=== PATIENT | female | born 1945 | race Caucasian/White ===

== ENCOUNTER → 2017-11-20 | Outpatient (CLI) | payer OTHER | LOC: FIMAGING 12:37 | PROVIDERS: ATTEND Internal Medicine | DX: R06.09 Other forms of dyspnea (principal); R09.89 Other specified symptoms and signs involving the circulatory and respiratory systems; R91.8 Other nonspecific abnormal finding of lung field ==

== ENCOUNTER → 2017-11-22 | Outpatient (CLI) | payer OTHER ==
[~2017-11-22] MED LIST: IOPAMIDOL (ISOVUE-300) 100 ML BTL ONE
== END ==
LOC: FIMAGING 09:21
PROVIDERS: ATTEND Internal Medicine
DX: R06.09 Other forms of dyspnea (principal); R91.8 Other nonspecific abnormal finding of lung field; Z85.3 Personal history of malignant neoplasm of breast
CPT/HCPCS: 71260; Q9967

== ENCOUNTER → 2017-11-24 | Outpatient (CLI) | payer OTHER | LOC: FIMAGING 07:14 | PROVIDERS: ATTEND Internal Medicine | DX: R16.0 Hepatomegaly, not elsewhere classified (principal); K80.20 Calculus of gallbladder without cholecystitis without obstruction ==

== ENCOUNTER → 2017-12-21 | Outpatient (CLI) | payer OTHER ==
[~2017-12-21] MED LIST changes: +GADOBUTROL 10 ML VIAL IVP ONE; -IOPAMIDOL (ISOVUE-300) 100 ML BTL ONE
== END ==
LOC: FIMAGING 15:20
PROVIDERS: ATTEND Internal Medicine Hematology & Oncology
DX: C79.31 Secondary malignant neoplasm of brain (principal); C78.01 Secondary malignant neoplasm of right lung; Z85.3 Personal history of malignant neoplasm of breast
CPT/HCPCS: 70553; A9585

== ENCOUNTER 2017-12-26 06:23 | Day surgery (SDC) | payer OTHER ==
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
--- NOTE | 2017-12-26 05:35 | PDHPUP ---
History & Physical Update H&P update statement: This history and physical update is based on an assessment of the patient which was completed after admission or registration (within 24 hours), but prior to the surgery/procedure. H&P update: H&P reviewed & patient examined, no change in patient's condition since H&P completed
[2017-12-26] MEDS ORDERED: ceFAZolin 2 GM/DEXTROSE 100 ML IV ONE (06:35)
[2017-12-26] MEDS ORDERED: LR 1,000 ML IV ONE (06:36)
[2017-12-26] MEDS ORDERED: LIDOCAINE 1% 2 ML INJ ID PRN (06:36)
[2017-12-26] MEDS ORDERED: BUPIVACAINE 0.5% 30 ML SDV ONE (07:17)
[2017-12-26] MEDS ORDERED: fentaNYL 100 MCG/2 ML INJ ONE (07:39)
[2017-12-26] MEDS ORDERED: PROPOFOL/EMULSION 500 MG/50 ML BOTTLE IV ONE (07:39)
[2017-12-26] MEDS ORDERED: RANITIDINE 50 MG/2 ML VIAL ONE (07:41)
[2017-12-26] MEDS ORDERED: LIDOCAINE 2% 100 MG/5 ML SYR ONE (07:42)
[2017-12-26] MEDS ORDERED: METOCLOPRAMIDE 10 MG/2 ML VIAL ONE (07:42)
--- NOTE | 2017-12-26 07:43 | PDANEPAE ---
ANE Past Medical History - Cardiovascular History Hx Hypertension: No Hx Arrhythmias: No Hx Chest Pain: No Hx Coronary Artery / Peripheral Vascular Disease: No Hx CHF / Valvular Disease: No Hx Palpitations: No Cardiovascular History Comment: slight thickening of RCA - Pulmonary History Hx COPD: No Hx Asthma/Reactive Airway Disease: No Hx Recent Upper Respiratory Infection: No Hx Oxygen in Use at Home: No Hx Sleep Apnea: Yes Sleep Apnea Screening Result - Last Documented: Positive Pulmonary History Comment: lung cancer - Neurologic History Hx Cerebrovascular Accident: No Hx Seizures: No Hx Dementia: No - Endocrine History Hx Diabetes: No Endocrine History Comment: pre-diabetes - Renal History Hx Renal Disorders: No - Liver History Hx Hepatic Disorders: No - Neurological & Psychiatric Hx Hx Neurological and Psychiatric Disorders: No - Cancer History Hx Cancer: Yes Cancer History Comment: Breast CA, lung cancer, liver cancer, metatastic adenocarcinoma unknown source - Congenital Disorder History Hx Congenital Disorders: No - GI History Hx Gastrointestinal Disorders: No - Other Health History Other Health History: Chronic inflammatory disease - Chronic Pain History Chronic Pain: No - Surgical History Prior Surgeries: B/L Mastectomy-2009. B/L Knee replacement-2009. B/L reconstructive breast surgery-2009. 2007-R rotator cuff surgery/2012-R L rotator cuff surgery. [id number]. Right leg compound fracture surgery-1965. left leg surgery-1994 ANE Review of Systems Review of Systems: - Exercise capacity METS (RN): 3 METS ANE Patient History - Allergies Allergies/Adverse Reactions: clarithromycin [From Biaxin] Allergy (Severe, Verified 11/30/17 15:50) THROAT CLOSURE/HIVES MOLD Allergy (Severe, Uncoded 04/28/09 11:48) Anaphylaxis - Home Medications Home Medications: Ascorbic Acid [Vitamin C] 500 mg PO 08/12/09 [Last Taken 11/30/17] CO Q-10 PO DAILY 08/12/09 [Last Taken 11/30/17] Cholecalciferol Vit D3 [Vitamin D] 500 units PO DAILY 08/12/09 [Last Taken 11/30] Estradiol TD PRN 08/12/09 [Last Taken 11/30/17] Synthroid 50 mcg PO DAILY 08/12/09 [Last Taken 12/01/17 0400] TESTOSTERONE CYPIONATE 2.5 mg PRN PRN 08/12/09 [Last Taken 11/26/17] metFORMIN HCL [Glucophage 500 mg (*)] 500 mg PO DAILY 08/12/09 [Last Taken 11/30] Calcium 500 mg PO DAILY 11/30/17 [Last Taken 11/30/17] Dhea 25 mg PO DAILY 11/30/17 [Last Taken 11/30/17] Fish Oil 1000 mg (*) 2 - 3 tab PO DAILY 11/30/17 [Last Taken 11/30/17] Garlic 600 mg PO DAILY 11/30/17 [Last Taken 11/30/17] Glutaraldehyde 5 mg PO DAILY 11/30/17 [Last Taken 11/30/17] Pregnenolone 30 mg PO 11/30/17 [Last Taken 11/30/17] Vitamin E 400 mg PO DAILY 11/30/17 [Last Taken 11/30/17] - NPO status NPO Since - Liquids (Date): 12/25/17 NPO Since - Liquids (Time): 23:00 NPO Since - Solids (Date): 12/25/17 NPO Since - Solids (Time): 19:00 - Smoking Hx Smoking Status: Never smoked - Family Anes Hx Family Hx Anesthesia Complications: None ANE Labs/Vital Signs - Vital Signs Blood Pressure: 122/72 Heart Rate: 85 Respiratory Rate: 18 O2 Sat (%): 96 Height: 170.18 cm Weight: 58.06 kg ANE Physical Exam - Airway Neck exam: decreased ROM Mallampati Score: Class 2 Mouth exam: normal dental/mouth exam - Pulmonary Pulmonary: no respiratory distress - Cardiovascular Cardiovascular: regular rate and rhythym - ASA Status ASA Status: III ANE Anesthesia Plan Total IV Anesthesia: Yes
[2017-12-26] MEDS ORDERED: fentaNYL 100 MCG/2 ML INJ IVP PRN (08:00)
[2017-12-26] MEDS ORDERED: ALBUTEROL 3 ML DEYVIAL IH PRN (08:00)
[2017-12-26] MEDS ORDERED: ONDANSETRON 4 MG/2 ML VIAL IVP PRN (08:00)
[2017-12-26] MEDS ORDERED: NALOXONE HCL 0.4 MG/ML INJ IVP PRN (08:00)
[2017-12-26] MEDS ORDERED: PROPOFOL 200 MG/20 ML VIAL ONE (08:17)
[2017-12-26] MEDS ORDERED: BACITRACIN ZINC 14.2 GM OINTTUBE TP ONE (08:26)
--- NOTE | 2017-12-26 08:44 | POSTANESTH ---
Post Anesthetic Evaluation Cardiovascular Status: Similar to Pre-Op Cond Respiratory Status: Similar to Pre-op Cond. Level of Consciousness/Mental Status: Mildly Sleepy, Arousable Pain Control: Adequate, Prn Tx Ordered Nausea/Vomiting Control: Adequate, Prn Tx Ordered Complications Possibly Related to Anesthesia: None Noted
[2017-12-26 10:25] VITALS: BP 117/65
== END 2017-12-26 10:25 | disposition home or self-care (01) ==
LOC: FSGY 06:23
PROVIDERS: ATTEND Surgery
PROC: 02H633Z Insertion of Infusion Device into Right Atrium, Percutaneous Approach (ICD-10-PCS; principal; 2017-12-26 08:00)
PROC: 0JH60XZ Insertion of Tunneled Vascular Access Device into Chest Subcutaneous Tissue and Fascia, Open Approach (ICD-10-PCS; principal; 2017-12-26 08:00)
DX: Z45.2 Encounter for adjustment and management of vascular access device (principal); C78.7 Secondary malignant neoplasm of liver and intrahepatic bile duct; C78.01 Secondary malignant neoplasm of right lung; C78.02 Secondary malignant neoplasm of left lung; C77.0 Secondary and unspecified malignant neoplasm of lymph nodes of head, face and neck; C77.2 Secondary and unspecified malignant neoplasm of intra-abdominal lymph nodes; C79.51 Secondary malignant neoplasm of bone; C80.1 Malignant (primary) neoplasm, unspecified; Z85.3 Personal history of malignant neoplasm of breast; Z90.13 Acquired absence of bilateral breasts and nipples; Z85.850 Personal history of malignant neoplasm of thyroid
CPT/HCPCS: C1788; J0690; J1642; J2001; J2704; J2765; J2780; J3010

== ENCOUNTER → 2017-12-26 | Outpatient (CLI) | payer OTHER | LOC: BHFA 14:00 | PROVIDERS: ATTEND Internal Medicine Cardiovascular Disease | DX: Z51.11 Encounter for antineoplastic chemotherapy (principal) ==

== ENCOUNTER → 2018-01-24 | Outpatient (CLI) | payer OTHER | LOC: FIMAGING 10:31 | PROVIDERS: ATTEND Internal Medicine Hematology & Oncology | DX: C16.0 Malignant neoplasm of cardia (principal); C78.00 Secondary malignant neoplasm of unspecified lung ==

== ENCOUNTER 2018-02-07 12:33 | Inpatient (IN) | payer OTHER ==
[2018-02-07] MEDS ORDERED: ACETAMINOPHEN 325 MG TAB PO PRN (15:31)
[2018-02-07] MEDS ORDERED: ONDANSETRON DISINTEGRATING 4 MG TAB PO PRN (15:31)
[2018-02-07] MEDS ORDERED: ONDANSETRON HCL 8 MG PO PRN (15:33)
[2018-02-07] MEDS ORDERED: LORazepam 0.5 MG TAB PO PRN ×2 (15:33→20:00)
[2018-02-07] MEDS ORDERED: D10W 1,000 ML IV PRN (15:34)
[2018-02-07] MEDS ORDERED: PROTOCOL POTASSIUM 1 DOSE MISC PRN (15:36)
[2018-02-07] MEDS ORDERED: K PHOS 20 MMOL in D5W 250 ML IV ONE (15:36)
[2018-02-07] MEDS ORDERED: PROTOCOL K PHOSPHATE 1 DOSE IV PRN (15:36)
[2018-02-07] MEDS ORDERED: PROTOCOL MAGNESIUM 1 DOSE IV PRN (15:36)
[2018-02-07] MEDS: D5W 1/2 NS W/ 20 KCl/L 1,000 ML IV SCH (16:16)
--- NOTE | 2018-02-07 17:10 | GCON ---
ONCOLOGY CONSULTATION. REQUESTING PHYSICIAN: Dr. Ladarius Herbert. REASON FOR CONSULTATOIN: Metastatic adenocarcinoma of unknown primary. The patient is a 72-year-old woman with a diagnosis of metastatic adenocarcinoma with liver, lung metastases. Liver biopsy (12/01/2017) demonstrated a moderately differentiated adenocarcinoma (ER/WV negative, mammaglobin negative). The pattern was felt to be most consistent with a GI primary, although upper and lower endoscopies were negative. The PET scan () demonstrated diffuse metastatic disease, but no clear primary. KRAS mutation negative, PDL1 read as "combined positive score of 21-30 percent" , HER2 FISH positive. She began FOLFOX plus Herceptin 12/29/2017. She received cycle 3 on 01/25/2018. She is admitted for electrolyte replacement, hydration, and arrangement of home TPN. She has had significant difficulty with maintaining hydration and with oral intake. She has been receiving IV fluids regularly in the office. PAST MEDICAL HISTORY: Stage I (T1b) left breast cancer (ER positive, WV negative, HER2 negative), 04/20/2009. PAST SURGICAL HISTORY: Breast biopsy, left knee replacement. MEDICATION: Outpatient medications reviewed: Compazine, dicyclomine, potassium chloride, Lomotil, omeprazole, Zofran, Zyprexa 5 mg at bedtime. ALLERGIES: Macrolide antibiotics. SOCIAL HISTORY: She is . Nonsmoker. REVIEW OF SYSTEMS: CONSTITUTIONAL: General fatigue and weakness. Weight loss. No fever, chills. GI: Not remarkable for nausea and chemotherapy-related diarrhea. NEUROLOGIC: Cold induced peripheral neuropathy. HEME: Occasional nosebleed. No other bleeding. A 10-point review of systems otherwise negative. PHYSICAL EXAM: VITAL SIGNS: Blood pressure 101/66, heart rate 96, respirations 12, 95% on room air, temperature 36.6. GENERAL: Thin woman who appears fatigued , in no acute distress. HEENT: No scleral icterus. CARDIOVASCULAR: Regular rate and rhythm. No pretibial edema. LUNGS: Clear to auscultation bilaterally. ABDOMEN: Soft, nontender. SKIN: No petechiae or ecchymoses. NEUROLOGIC: Grossly nonfocal. LABORATORY DATA: WBC 1.37, ANC 0.97, hemoglobin 11, platelets 96,000. Sodium 134, potassium 2.9, chloride 104, bicarbonate 23, BUN 15, creatinine 0.5, glucose 117. Calcium 6.6, albumin 1.8 (calcium corrects to 8.3), phosphorus 1.3 , normal liver function tests. Albumin 1.8. IMPRESSION: 1. Hypokalemia, hypophosphatemia. 2. Dehydration. 3. Malnutrition. 4. Stage IV adenocarcinoma of unknown primary, likely gastrointestinal primary : Cycle 3, day 14 FOLFOX plus Herceptin. 5. Chemotherapy-induced nausea. 6. Chemotherapy-induced diarrhea (negative GI panel PCR 01/31/2018). She will receive supportive care with IV fluids and electrolyte replacement, antiemetics, antidiarrheals. TPN will be initiated and arrangements made for home TPN. /[id number]/MODL MTDD
[2018-02-07] MEDS: POTASSIUM Cl (KCl) 50 ML IV SCH ×2 (19:46→22:09)
[2018-02-07] MEDS: OLANZapine 5 MG TAB PO SCH (20:55)
[2018-02-07] MEDS: GUAIFENESIN/DM 10 ML UDCUP PO PRN (23:52)
[2018-02-07] MEDS: BENZONATATE 100 MG CAP PO PRN (23:52)
[2018-02-08] MEDS: LEVOTHYROXINE 75 MCG TAB PO SCH (05:43)
[2018-02-08] MEDS: D5W 1/2 NS W/ 20 KCl/L 1,000 ML IV SCH (07:19)
[2018-02-08] MEDS: POTASSIUM CL 20 MEQ PKT PO SCH (09:05)
[2018-02-08] MEDS: LIOTHYRONINE SODIUM 5 MCG TAB PO SCH (09:05)
[2018-02-08] MEDS: DIPHENOXYLATE/ATROPINE LOMOTIL 1 TAB PO PRN ×3 (10:31→18:54)
[2018-02-08 11:08] LABS: PLATELET COUNT 64 10^3/uL (150-400)
--- NOTE | 2018-02-08 11:14 | PDMN ---
Medical Necessity Medical necessity: Pt meets IP criteria per and MCG M-123; est los > 2 mn for ongoing management and tx of dehydration and malnutrition secondary to adenocarcinoma of unknown primary; requiring IV hydration and initiation of TPN.
[2018-02-08] MEDS ORDERED: K PHOS 20 MMOL in D5W 250 ML IV ONE (12:45)
[2018-02-08] MEDS ORDERED: MAGNESIUM SULF 1 GM/DEXTROSE 100 ML IV ONE (13:00)
[2018-02-08] MEDS ORDERED: D50W 25 GM/50 ML SYR IVP PRN (15:40)
--- NOTE | 2018-02-08 16:06 | SOAPPROG ---
SOAP Progress Note Assessment/Plan: Assessment: 1. Metastatic adenocarcinoma of unknown primary-[id number] FOLFOX. 2. Malnutrition. 3. Diarrhea-likely chemotherapy induced. 4. Pain/swelling at angle of left jaw-?parotiditis 5. Neutropenia Plan: 1. TPN to start tonight. 2. Continue lomotil. consider checking c. diff if continues. 3. CT of the head to evaluate tender swollen left jaw. 4. Follow for fever. Discussed with Dr. Herbert Subjective: tender left jaw. continues to have diarrhea, but a bit better than yesterday. Objective: Vital Signs Temp Pulse Resp BP Pulse Ox 37.0 C 114 H 22 H 103/64 96 02/08/18 15:49 02/08/18 15:49 02/08/18 15:49 02/08/18 15:49 02/08/18 15:49 Laboratory Results 02/08/18 09:30 02/08/18 09:30 02/07/18 02/08/18 02/09/18 05:59 05:59 05:59 Intake Total 955 900 Output Total 100 250 Balance 855 650 Physical Exam - Physical Exam General Appearance: no apparent distress, thin EENT: other (tender, swollen area at the angle of left jaw. no erythema or fluctuance) Respiratory: lungs clear Abdomen: soft, other (slightly hyperactive bowel sounds) Neuro/Psych: alert, normal mood/affect, oriented x 3 ICD10 Worksheet Patient Problems: Problems Problem Status Onset Adenocarcinoma Acute Neutropenia Acute Neutropenia Acute Thrombocytopenia Acute Thrombocytopenia Acute
--- NOTE | 2018-02-08 16:52 | ASMTCMCOM ---
CM Note CM Note Notes: Pt admitted for malnutrition, diarrhea and pain in the setting of metastatic adenocarcinoma and neutropenia. Pt lives with Triston. Pt was connected with [facility] to begin TPN at home when she was admitted. TPN started inpatient today. Spoke with rep from [facility] who stated they cannot start home TPN on a Monday due to lack of staffing over the weekend, but can start Monday through . Referrals sent to [facility] and [facility] for home RN and they are able to take her. CM to follow. D/C Plan: Home with [facility] and [facility] RN Date Signed: 02/08/2018 04:52 PM Electronically Signed By:Parris Troncoso
[2018-02-08] MEDS ORDERED: DICYCLOMINE 10 MG CAP PO PRN ×2 (16:55→17:09)
[2018-02-08] MEDS ORDERED: FAMOTIDINE 20 MG TAB PO PRN (16:55)
[2018-02-08] MEDS ORDERED: NS 1,000 ML IV ONE (17:42)
[2018-02-08] MEDS ORDERED: NS 1,000 ML IV SCH (17:45)
--- NOTE | 2018-02-08 17:47 | HOSPPROG ---
Hospitalist Progress Note Assessment/Plan: 72 yo F w adenocarcinoma here w malnutrition, electrolyte abnormalities now w parotiditis parotiditis: poor po intake, vomiting as RF's start unasyn tachycardia: new, sinus (ekg interp by me) 2/2 infection infection plus tachycardia = Sepsis bolus 1 L increase INV to 200 cc/hr hypokalemia: protocol hypophosphatemia: protocol hyponatremia: mild, follow neutropenia: mild, 2/2 chemo proph: scd's thrmobicytopenic H+P dicated under previous encounter number Subjective: case d/w dr krishnan. tachycardic. L sided facial swelling Objective: Vital Signs Temp Pulse Resp BP Pulse Ox 37.0 C 114 H 22 H 103/64 96 02/08/18 15:49 02/08/18 15:49 02/08/18 15:49 02/08/18 15:49 02/08/18 15:49 Laboratory Results 02/08/18 09:30 02/08/18 09:30 02/07/18 02/08/18 02/09/18 05:59 05:59 05:59 Intake Total 955 900 Output Total 100 250 Balance 855 650 - Physical Exam Constitutional: no apparent distress, appears nourished Eyes: PERRL Ears, Nose, Mouth, Throat: other (L parotid swelling) Cardiovascular: regular rate and rhythym, no murmur, rub, or gallop, tachycardia Respiratory: no respiratory distress, no rales or rhonchi Gastrointestinal: normoactive bowel sounds, soft, non-tender abdomen Genitourinary: no bladder fullness, no renal bruits, No rose in urethra Skin: warm Musculoskeletal: full muscle strength
[2018-02-08] MEDS: AMPICILLIN/SULBACTAM 3 GM in NS 100 ML IV SCH (18:14)
[2018-02-08] MEDS ORDERED: POTASSIUM CL 10 MEQ TAB PO ONE (19:22)
[2018-02-08] MEDS: FILGRASTIM-SNDZ 300 MCG/0.5 ML SYR SC SCH (19:46)
[2018-02-08] MEDS: TPN W/ FAMOTIDINE 1 EA BAG IV SCH (20:43)
--- NOTE | 2018-02-08 20:58 | CPEKG ---
Test Reason : OPEN Blood Pressure : / mmHG Vent. Rate : 109 BPM Atrial Rate : 109 BPM P-R Int : 145 ms QRS Dur : 069 ms QT Int : 309 ms P-R-T Axes : 061 052 000 degrees QTc Int : 417 ms Sinus tachycardia Multiple premature complexes, ventricular or supraventricular Nonspecific T abnormalities, lateral leads Confirmed by Kar Smith ([id number]) on 02/08/2018 8:57:45 PM Referred By: Confirmed By:Kar Smith
[2018-02-08] MEDS ORDERED: D5W 1/2 NS W/ 20 KCl/L 1,000 ML IV SCH (21:00)
[2018-02-08] MEDS: OLANZapine 5 MG TAB PO SCH (21:16)
[2018-02-08] MEDS: NS 1,000 ML IV SCH (22:33)
[2018-02-09] MEDS: AMPICILLIN/SULBACTAM 3 GM in NS 100 ML IV SCH ×5 (00:15→23:19)
[2018-02-09] MEDS: INSULIN REGULAR, HUMAN 100 UNIT/1 ML VIAL STANDARD SC SCH ×5 (00:20→23:36)
[2018-02-09] MEDS: GUAIFENESIN/DM 10 ML UDCUP PO PRN (01:58)
[2018-02-09 06:30] LABS: PLATELET COUNT 52 10^3/uL (150-400)
[2018-02-09] MEDS: LIOTHYRONINE SODIUM 5 MCG TAB PO SCH (06:30)
[2018-02-09] MEDS: LEVOTHYROXINE 75 MCG TAB PO SCH (06:30)
[2018-02-09] MEDS ORDERED: POTASSIUM CL 10 MEQ TAB PO ONE (08:59)
[2018-02-09] MEDS ORDERED: K PHOS 15 MMOL in D5W 250 ML IV ONE (09:00)
[2018-02-09] MEDS ORDERED: MAGNESIUM SULF 1 GM/DEXTROSE 100 ML IV ONE (09:01)
[2018-02-09] MEDS: POTASSIUM CL 20 MEQ PKT PO SCH (09:31)
--- NOTE | 2018-02-09 12:38 | HOSPPROG ---
Hospitalist Progress Note Assessment/Plan: 72 yo F w metastatic adenocarcinoma admitted because of severe malnutrition, electrolyte abnormalities Severe protein calorie malnutrition-poor intake, n/v/d s/p chemo -has been getting IVF at [facility] -TPN initiated -CM arranged for home TPN at discharge -OK po as tolerated -IV anti emetics -anti diarrheals parotiditis: poor po intake, vomiting -started on unasyn at admit -less pain/swelling, will hold off on CT scan Sepsis- based on tachycardia, presumed parotid infection -fluid resuscitation -IV unasyn -afebrile hypokalemia: protocol hypophosphatemia: protocol hyponatremia: mild, follow Antineoplastic chemotherapy induced pancytopenia -follow CBC closely Metastatic adenocarcinoma -discussed care plan with Dr Collin turpin/onc DVT prophy: scds, thrombocytopenia Dispo: >2 mdnts because of ongoing n/v/d FULL CODE- discuss palliative with her/family over the weekend Subjective: Very nauseous, upset re stool diarrhea/incontinence. Anxious to try to eat more. No CP/SOB. L side face/neck less painful today. Son in room- he is a PA. Objective: Vital Signs Temp Pulse Resp BP Pulse Ox 97.4 F 99 16 110/64 95 02/09/18 08:00 02/09/18 07:41 02/09/18 07:41 02/09/18 07:41 02/09/18 07:41 Laboratory Results 02/09/18 06:20 02/09/18 06:20 02/08/18 02/09/18 02/10/18 11:59 11:59 11:59 Intake Total 1855 2663 Output Total 150 1100 Balance 1705 1563 - Time Spent With Patient Time Spent with Patient: greater than 35 minutes (long discussion with son (he is a PA) re goals/plans, palliative care) Time Spent with Patient: Greater than 35 minutes spent on this patients care, greater than 50% of time spent counseling, educating, and coordinating care regarding the above mentioned plan. - Physical Exam Constitutional: uncomfortable, cachectic Eyes: PERRL, anicteric sclera Ears, Nose, Mouth, Throat: moist mucous membranes, other (no visible swelling of L side face/neck) Cardiovascular: regular rate and rhythym Respiratory: no respiratory distress, no rales or rhonchi, clear to auscultation , reduced air movement Gastrointestinal: normoactive bowel sounds, tenderness (mild throughout) Skin: warm Psychiatric: interacting appropriately, not anxious, not encephalopathic, thought process linear ICD10 Worksheet Patient Problems: Problems Problem Status Onset Adenocarcinoma Acute Neutropenia Acute Neutropenia Acute Thrombocytopenia Acute Thrombocytopenia Acute
[2018-02-09] MEDS: NS 1,000 ML IV SCH (13:51)
[2018-02-09] MEDS: DIPHENOXYLATE/ATROPINE LOMOTIL 1 TAB PO PRN (14:29)
[2018-02-09] MEDS: FILGRASTIM-SNDZ 300 MCG/0.5 ML SYR SC SCH (14:30)
--- NOTE | 2018-02-09 14:36 | ASMTCMCOM ---
CM Note CM Note Notes: Pt lives at home with and has two children nearby who are helpful. Pt already referred to [facility] and [facility] for TPN infusion through port. PT and OT ordered today to evaluated for therapy needs. [facility] not able to begin TPN over the weekend, so earliest discharge from this perspective is Monday. Pt's electrolytes still very unstable. CM to follow. D/C Plan: [facility] RN and [facility] TPN infusion, possible PT/OT Date Signed: 02/09/2018 02:30 PM Electronically Signed By:Parris Troncoso
[2018-02-09] MEDS: ONDANSETRON 4 MG/2 ML VIAL IVP PRN (16:20)
[2018-02-09] MEDS: BISMUTH SUBSALICYLATE 262 MG CHEWABLE TAB PO PRN (17:19)
[2018-02-09] MEDS ORDERED: PROTOCOL POTASSIUM 1 DOSE MISC PRN (19:23)
[2018-02-09] MEDS ORDERED: POTASSIUM CL 20 MEQ PKT PO ONE (21:00)
[2018-02-09] MEDS: TPN W/ FAMOTIDINE 1 EA BAG IV SCH (21:00)
[2018-02-09] MEDS: PROMETHAZINE HCL 25 MG/ML INJ IVP PRN (21:10)
[2018-02-09] MEDS: OLANZapine 5 MG TAB PO SCH (21:11)
[2018-02-10] MEDS: PROMETHAZINE HCL 25 MG/ML INJ IVP PRN ×2 (04:19→10:57)
[2018-02-10] MEDS: LEVOTHYROXINE 75 MCG TAB PO SCH (04:59)
[2018-02-10] MEDS: NS 1,000 ML IV SCH (04:59)
[2018-02-10] MEDS: AMPICILLIN/SULBACTAM 3 GM in NS 100 ML IV SCH ×4 (05:03→23:46)
[2018-02-10] MEDS: LIOTHYRONINE SODIUM 5 MCG TAB PO SCH (05:10)
[2018-02-10] MEDS: INSULIN REGULAR, HUMAN 100 UNIT/1 ML VIAL STANDARD SC SCH ×4 (05:11→23:44)
[2018-02-10] MEDS: DIPHENOXYLATE/ATROPINE LOMOTIL 1 TAB PO PRN (11:18)
[2018-02-10] MEDS: POTASSIUM CL 20 MEQ PKT PO SCH (11:52)
[2018-02-10] MEDS: ONDANSETRON 4 MG/2 ML VIAL IVP PRN (12:56)
[2018-02-10] MEDS: FILGRASTIM-SNDZ 300 MCG/0.5 ML SYR SC SCH (14:52)
[2018-02-10] MEDS ORDERED: LORazepam 0.5 MG TAB PO PRN (15:28)
[2018-02-10] MEDS ORDERED: LORazepam 2 MG/ML INJ IVP PRN (15:28)
[2018-02-10] MEDS ORDERED: SCOPOLAMINE HYDROBROMIDE 1 MG/3 DAYS PATCH TD SCH (15:30)
[2018-02-10] MEDS: MBX SOLN 30 ML BOTTLE PO PRN (20:22)
[2018-02-10] MEDS: TPN W/ FAMOTIDINE 1 EA BAG IV SCH (20:22)
[2018-02-10] MEDS: OLANZapine 5 MG TAB PO SCH (20:23)
[2018-02-11] MEDS: INSULIN REGULAR, HUMAN 100 UNIT/1 ML VIAL STANDARD SC SCH ×3 (05:25→18:35)
[2018-02-11] MEDS: AMPICILLIN/SULBACTAM 3 GM in NS 100 ML IV SCH ×2 (05:32→13:19)
[2018-02-11] MEDS: LIOTHYRONINE SODIUM 5 MCG TAB PO SCH ×2 (05:33→08:50)
[2018-02-11 05:34] LABS: PLATELET COUNT 37 10^3/uL (150-400)
[2018-02-11] MEDS: LEVOTHYROXINE 75 MCG TAB PO SCH (05:34)
[2018-02-11] MEDS: PROMETHAZINE HCL 25 MG/ML INJ IVP PRN (05:47)
[2018-02-11] MEDS: POTASSIUM CL 20 MEQ PKT PO SCH (08:50)
--- NOTE | 2018-02-11 09:51 | SOAPPROG ---
SOAP Progress Note Assessment/Plan: Assessment: This is a very pleasant 72-year-old female with history of metastatic adenocarcinoma that is HER2 positive thought to be secondary for GI source admitted for deconditioning. 1. Metastatic adenocarcinoma, likely GI source: She was initiated on FOLFOX and Herceptin cycle 3 day 18. 2. Malnutrition and failure to thrive: She currently is receiving TPN. This is to be establish for outpatient. 3. Thrombocytopenia: This is slowly worsening. I suspect part of this is secondary to chemotherapy. No indication for transfusion at this juncture. 4. Chemotherapy associated neutropenia: She had associated cytopenias with neutropenia which is slowly improved. She is currently receiving growth factor. Her neutropenia is slowly resolving. I recommend 1 more day of growth factor and discontinue tomorrow. She currently is also receiving Unasyn. She is currently afebrile. 02/11/18 09:52 Subjective: Feels well this morning. Did have a few episodes of emesis. Passing stools. This getting up with assistance. Otherwise no other complaints. Objective: Vital Signs Temp Pulse Resp BP Pulse Ox 36.6 C 97 24 H 148/76 H 93 02/11/18 07:43 02/11/18 07:43 02/11/18 07:43 02/11/18 08:25 02/11/18 07:43 Laboratory Results 02/11/18 04:30 02/11/18 04:30 02/10/18 02/11/18 02/12/18 05:59 05:59 05:59 Intake Total 4258 3447 Output Total 1100 1150 Balance 3158 2297 General: Thin female in no acute distress HEENT: Crusted blood noted in the left nostril, nasal cannula in place Cardiovascular: Regular rate and rhythm Pulmonary: Clear to auscultation bilaterally Abdomen: Bowel sounds are present nontender nondistended no rebound or guarding Extremities: No cyanosis clubbing or edema Psych: Appropriate affect Skin: No skin lesions ICD10 Worksheet Patient Problems: Problems Problem Status Onset Adenocarcinoma Acute Neutropenia Acute Neutropenia Acute Thrombocytopenia Acute Thrombocytopenia Acute - ICD10 Problem Qualifiers (1) Adenocarcinoma (2) Neutropenia (3) Neutropenia (4) Thrombocytopenia (5) Thrombocytopenia
[2018-02-11] MEDS: ONDANSETRON 4 MG/2 ML VIAL IVP PRN ×2 (11:13→15:36)
[2018-02-11] MEDS: DIPHENOXYLATE/ATROPINE LOMOTIL 1 TAB PO PRN ×4 (13:46→23:53)
[2018-02-11] MEDS: FILGRASTIM-SNDZ 300 MCG/0.5 ML SYR SC SCH (13:46)
[2018-02-11] MEDS: LOPERAMIDE HCL 1 MG/5 ML UDL PO PRN ×3 (15:36→23:54)
[2018-02-11] MEDS: OLANZapine 5 MG TAB PO SCH (21:14)
[2018-02-11] MEDS: TPN W/ FAMOTIDINE 1 EA BAG IV SCH (21:14)
[2018-02-11] MEDS: CHOLESTYRAMINE/SUCROSE 4 GM PKT PO SCH (21:17)
[2018-02-11] MEDS: NS 1,000 ML IV SCH (21:23)
[2018-02-12] MEDS: INSULIN REGULAR, HUMAN 100 UNIT/1 ML VIAL STANDARD SC SCH ×5 (00:34→23:38)
[2018-02-12] MEDS: BENZONATATE 100 MG CAP PO PRN ×2 (01:20→09:24)
[2018-02-12] MEDS: MBX SOLN 30 ML BOTTLE PO PRN ×3 (01:22→19:35)
--- NOTE | 2018-02-12 01:26 | HOSPPROG ---
Hospitalist Progress Note Assessment/Plan: 72 yo F w metastatic adenocarcinoma admitted because of severe malnutrition, electrolyte abnormalities Severe protein calorie malnutrition-poor intake, n/v/d s/p chemo -has been getting IVF at [facility] -TPN started and going up to goal per pharm (goal volume/Kcal planned for tomorrow nt) -CM arranged for home TPN at discharge starting Mon at earliest -OK po as tolerated -IV anti emetics, scop patch added -anti diarrheals parotiditis: poor po intake, vomiting -started on unasyn at admit -less pain/swelling, so no CT scan Sepsis- based on tachycardia, presumed parotid infection -fluid resuscitation -IV unasyn for presumed infection -afebrile hypokalemia: protocol hypophosphatemia: protocol hyponatremia: mild, follow Antineoplastic chemotherapy induced pancytopenia -follow CBC closely Metastatic adenocarcinoma -discussed care plan with Dr Kishor turpin/onc DVT prophy: scds, thrombocytopenia Dispo: >2 mdnts because of ongoing n/v/d FULL CODE- discussed palliative care services, they would like more info, consult entered Subjective: Feels stronger today, thinks TPN definitely helping. Still with intermittent n/v/d/incontinence. Long discussion with son separately, then with her and re palliative care services at home, dispo planning. Objective: Vital Signs Temp Pulse Resp BP Pulse Ox 97.6 F 97 16 146/79 H 91 L 02/12/18 00:00 02/12/18 00:00 02/12/18 00:00 02/12/18 00:00 02/12/18 00:00 Laboratory Results 02/11/18 04:30 02/11/18 04:30 02/10/18 02/11/18 02/12/18 11:59 11:59 11:59 Intake Total 3345 3447 1360 Output Total 1100 1150 400 Balance 2245 2297 960 - Time Spent With Patient Time Spent with Patient: greater than 35 minutes Time Spent with Patient: Greater than 35 minutes spent on this patients care, greater than 50% of time spent counseling, educating, and coordinating care regarding the above mentioned plan. - Physical Exam Constitutional: chronically ill appearing, uncomfortable, other (thin) Eyes: PERRL, anicteric sclera Ears, Nose, Mouth, Throat: moist mucous membranes, hearing normal Cardiovascular: regular rate and rhythym Respiratory: no respiratory distress, no rales or rhonchi, clear to auscultation , reduced air movement Gastrointestinal: normoactive bowel sounds, soft, non-tender abdomen Skin: warm, normal color Psychiatric: interacting appropriately, not anxious, not encephalopathic, thought process linear ICD10 Worksheet Patient Problems: Problems Problem Status Onset Adenocarcinoma Acute Neutropenia Acute Neutropenia Acute Thrombocytopenia Acute Thrombocytopenia Acute
--- NOTE | 2018-02-12 01:32 | HOSPPROG ---
Hospitalist Progress Note Assessment/Plan: 72 yo F w metastatic adenocarcinoma admitted because of severe malnutrition, electrolyte abnormalities Severe protein calorie malnutrition-poor intake, n/v/d s/p chemo -c diff repeated/neg -has been getting IVF at [facility] -TPN started and going up to goal per pharm (goal volume/Kcal planned for tonight) -CM arranged for home TPN at discharge starting Mon at earliest -OK po as tolerated -IV anti emetics, scop patch helping -anti diarrheals, has used cholestyramine before-helped parotiditis: poor po intake, vomiting -started on unasyn at admit but sxs essentially resolved, afebrile, improving WBC -ok with heme/onc to stop unasyn Sepsis- based on tachycardia, presumed parotid infection -fluid resuscitation -IV unasyn for presumed infection, stopped today/see above -afebrile hypokalemia: protocol, stable hypophosphatemia: protocol, stable hyponatremia: mild, follow Antineoplastic chemotherapy induced pancytopenia -counts improving except thrombocytopenia Metastatic adenocarcinoma -discussed care plan with Dr Iverson heme/onc DVT prophy: scds, thrombocytopenia Dispo: >2 mdnts because of ongoing n/v/d FULL CODE- palliative care services consult pending PCP Dr Hurt Subjective: , son in room at separate times. Overall feeling stronger/ better but still with intermittent n/v/diarrhea/incontinence. Trying to eat a bit, dry mouth. Objective: Vital Signs Temp Pulse Resp BP Pulse Ox 97.6 F 97 16 146/79 H 91 L 02/12/18 00:00 02/12/18 00:00 02/12/18 00:00 02/12/18 00:00 02/12/18 00:00 Laboratory Results 02/11/18 04:30 02/11/18 04:30 02/10/18 02/11/18 02/12/18 11:59 11:59 11:59 Intake Total 3345 3447 1360 Output Total 1100 1150 400 Balance 2245 2297 960 - Time Spent With Patient Time Spent with Patient: greater than 25 minutes Time Spent with Patient: Greater than 25 minutes spent on this patients care, greater than 50% of time spent counseling, educating, and coordinating care regarding the above mentioned plan. - Physical Exam Constitutional: no apparent distress (looks more comfortable/alert today), other (thin) Eyes: PERRL, anicteric sclera Ears, Nose, Mouth, Throat: moist mucous membranes, hearing normal Cardiovascular: regular rate and rhythym Respiratory: no respiratory distress, no rales or rhonchi, clear to auscultation , reduced air movement Gastrointestinal: normoactive bowel sounds, soft, non-tender abdomen Skin: warm, normal color Psychiatric: interacting appropriately, not anxious, not encephalopathic, thought process linear ICD10 Worksheet Patient Problems: Problems Problem Status Onset Adenocarcinoma Acute Neutropenia Acute Neutropenia Acute Thrombocytopenia Acute Thrombocytopenia Acute
[2018-02-12] MEDS: GUAIFENESIN/DM 10 ML UDCUP PO PRN ×2 (06:11→11:37)
[2018-02-12] MEDS: DIPHENOXYLATE/ATROPINE LOMOTIL 1 TAB PO PRN (06:12)
[2018-02-12] MEDS: LOPERAMIDE HCL 1 MG/5 ML UDL PO PRN (06:12)
[2018-02-12] MEDS: LEVOTHYROXINE 75 MCG TAB PO SCH (06:12)
[2018-02-12] MEDS: LIOTHYRONINE SODIUM 5 MCG TAB PO SCH (08:56)
[2018-02-12] MEDS: CHOLESTYRAMINE/SUCROSE 4 GM PKT PO SCH ×2 (08:56→21:01)
[2018-02-12] MEDS: ONDANSETRON 4 MG/2 ML VIAL IVP PRN ×2 (09:24→14:01)
[2018-02-12 09:36] LABS: INR 1.29 (0.83-1.16); PROTIME(PATIENT) 16.3 SEC (12.0-15.0)
[2018-02-12 10:42] LABS: PLATELET COUNT 32 10^3/uL (150-400)
[2018-02-12] MEDS: POTASSIUM CL 20 MEQ PKT PO SCH ×2 (11:38→12:28)
[2018-02-12] MEDS ORDERED: MAGNESIUM SULF 1 GM/DEXTROSE 100 ML IV ONE ×2 (13:08→14:30)
[2018-02-12] MEDS ORDERED: NS 1,000 ML IV SCH (14:30)
--- NOTE | 2018-02-12 14:43 | ASMTCMCOM ---
CM Note CM Note Notes: Hospice referrals were sent out yesterday. Palliative care and [facility]inf[facility]hal[facility] met with pt and her this morning and they decided they weren't ready for either palliative or hospice care at this time. Pt will remain with her original d/c plan of [facility] for TPN and [facility] for RN/PT/OT. CM will continue to follow. D/C plan: [facility]/TPN and [facility] RN/PT/OT Date Signed: 02/12/2018 02:42 PM Electronically Signed By:NIRU Gandara
--- NOTE | 2018-02-12 14:57 | HOSPPROG ---
Hospitalist Progress Note Assessment/Plan: #Severe protein calorie malnutrition: on TPN #Thrombocytopenia: unclear. Onc concerned of myelodysplastic process. Not on heparin products. Transfuse if <10. Checking DPD genotyoe #Intractable N/V: AXR with possible SBO, CT pending #Diarrhea: negative C diff #Parotiditis: sxs improved, off abx #AHRF: CXR (personally-reviewed) volume overloaded. Dose IV Lasix #Sepsis: resolved #Fatigue: multifactorial. TSH 24, low free T3/4. Increase LT4 #Hypothyroidism: increase LT4 #hypokalemia/hypophosphatemia/hyponatremia: mild, follow #Metastatic adenocarcinoma, likely GI: FOLFOX/Herceptin. Cycle 3, day 18 -Palliative care consulted #Diet: TPN, PO as tolerated #DVT ppx: SCDs with low platelets #Disp: inpatient admission for TPN, CT scan. Case d/w Dr. Ospina Subjective: less diarrhea, still nauseated Objective: Vital Signs Temp Pulse Resp BP Pulse Ox 37.0 C 94 33 H 136/80 H 84 L 02/12/18 11:30 02/12/18 11:47 02/12/18 09:02 02/12/18 11:47 02/12/18 10:15 Laboratory Results 02/12/18 09:16 02/12/18 09:16 02/11/18 02/12/18 02/13/18 05:59 05:59 05:59 Intake Total 3447 1360 1528 Output Total 1150 400 Balance 2297 960 1528 PT 16.3 SEC (12.0-15.0) H 02/12/18 09:16 INR 1.29 (0.83-1.16) H 02/12/18 09:16 - Time Spent With Patient Time Spent with Patient: greater than 35 minutes Time Spent with Patient: Greater than 35 minutes spent on this patients care, greater than 50% of time spent counseling, educating, and coordinating care regarding the above mentioned plan. - Physical Exam Constitutional: chronically ill appearing Eyes: PERRL Ears, Nose, Mouth, Throat: moist mucous membranes Cardiovascular: regular rate and rhythym Respiratory: reduced air movement Gastrointestinal: normoactive bowel sounds Genitourinary: no bladder fullness Skin: warm Musculoskeletal: generalized weakness Neurologic: AAOx3, CN II-XII Intact ICD10 Worksheet Patient Problems: Problems Problem Status Onset Adenocarcinoma Acute Neutropenia Acute Neutropenia Acute Thrombocytopenia Acute Thrombocytopenia Acute
[2018-02-12] MEDS ORDERED: IOPAMIDOL (ISOVUE-300) 100 ML BTL ONE (16:07)
[2018-02-12] MEDS: FUROSEMIDE 20 MG/2 ML VIAL IVP SCH (16:53)
[2018-02-12] MEDS ORDERED: POTASSIUM Cl (KCl) 50 ML IV ONE (20:03)
--- NOTE | 2018-02-12 20:03 | SOAPPROG ---
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 1. Metastatic adenocarcinoma, likely GI source: She was initiated on FOLFOX and Herceptin cycle 3 day 19. Review of outpatient records demonstrate response with falling tumor markers however inability to take PO is somewhat discordant with this an worrisome for malignant obstruction/partial bowel obstruction -Recommend CTAP to evaluate for reversibility of current pathology before resigning patient to TPN 2. Malnutrition and failure to thrive: She currently is receiving TPN. Evaluate for pathology as above, continue otherwise. Discussed with patient that TPN in patients with metastatic cancer is unlikely to change outcomes. 3. Thrombocytopenia: Progressive worsening, can be sequestration from oxaliplatin induced liver changes but unlikely so far out from chemotherapy and is usually not this severe a thrombocytopenia. If it is chemotherapy related than she likely has DPD deficiency which I think is worth testing for. Looking at her peripheral blood smear I am concerned for background MDS picture which may explain dramatic marrow response to an otherwise minimally myelosuppressive therapy. 4. Chemotherapy associated neutropenia: As per above problem. Normal WBC today, expect to drop in half with stopping GCSF. Would stop neupogen at this point. Gabriel Ospina Subjective: Patient reports feeling fair. She can't really take in PO with severe nausea and vomiting. She also isn't hungry. No pain, no bleeding. Tolerating TPN fine. No longer passing gas/BMs. Objective: Vital Signs Temp Pulse Resp BP Pulse Ox 36.3 C 96 26 H 128/78 H 92 02/12/18 16:47 02/12/18 16:47 02/12/18 16:47 02/12/18 16:47 02/12/18 16:47 Laboratory Results 02/12/18 09:16 02/12/18 18:45 02/11/18 02/12/18 02/13/18 05:59 05:59 05:59 Intake Total 3447 1360 3232 Output Total 1150 400 700 Balance 2297 960 2532 PT 16.3 SEC (12.0-15.0) H 02/12/18 09:16 INR 1.29 (0.83-1.16) H 02/12/18 09:16 General: Thin female in no acute distress HEENT: PERRL, no icterus or pallor, left upper lip crusted bloody lesion ( david border) Cardiovascular: Regular rate and rhythm Pulmonary: Clear to auscultation bilaterally Abdomen: distended, tympanic to percussion Extremities: No cyanosis clubbing or edema Psych: Appropriate affect Skin: No skin lesions ICD10 Worksheet Patient Problems: Problems Problem Status Onset Adenocarcinoma Acute Neutropenia Acute Neutropenia Acute Thrombocytopenia Acute Thrombocytopenia Acute
[2018-02-12] MEDS: OLANZapine 5 MG TAB PO SCH (20:40)
[2018-02-12] MEDS: TPN W/ FAMOTIDINE 1 EA BAG IV SCH (21:02)
[2018-02-12] MEDS ORDERED: ALBUTEROL 60 PUFFS/8 GM MDI IH PRN (22:00)
[2018-02-13] MEDS: GUAIFENESIN/DM 10 ML UDCUP PO PRN ×2 (00:35→05:11)
[2018-02-13] MEDS: BENZONATATE 100 MG CAP PO PRN ×2 (01:28→08:50)
[2018-02-13] MEDS: BISMUTH SUBSALICYLATE 262 MG CHEWABLE TAB PO PRN (02:13)
[2018-02-13] MEDS: LIOTHYRONINE SODIUM 5 MCG TAB PO SCH (03:50)
[2018-02-13] MEDS: LEVOTHYROXINE 100 MCG TAB PO SCH (03:50)
[2018-02-13] MEDS: INSULIN REGULAR, HUMAN 100 UNIT/1 ML VIAL STANDARD SC SCH (05:39)
[2018-02-13 05:44] LABS: INR 1.22 (0.83-1.16); PROTIME(PATIENT) 15.6 SEC (12.0-15.0)
[2018-02-13 05:56] LABS: PLATELET COUNT 35 10^3/uL (150-400)
[2018-02-13] MEDS: MBX SOLN 30 ML BOTTLE PO PRN ×2 (08:33→18:19)
[2018-02-13] MEDS: FUROSEMIDE 20 MG/2 ML VIAL IVP SCH (08:50)
[2018-02-13] MEDS: POTASSIUM CL 20 MEQ PKT PO SCH ×2 (08:51→14:55)
[2018-02-13] MEDS: CHOLESTYRAMINE/SUCROSE 4 GM PKT PO SCH ×3 (08:53→20:17)
[2018-02-13] MEDS ORDERED: FUROSEMIDE 20 MG/2 ML VIAL IVP ONE ×2 (08:59→16:17)
[2018-02-13] MEDS ORDERED: FUROSEMIDE 20 MG/2 ML VIAL IVP SCH (09:00)
--- NOTE | 2018-02-13 09:08 | HOSPPROG ---
Hospitalist Progress Note Assessment/Plan: #Acute hypoxic resp failure: now on 8L. Did get lasix last night. Repeat xray, increase Lasix. Up 7kg since admission #Acutely decompensated diastolic HF: echo 12/1918 grade 1 diastolic HF, AR. Lasix IV BID, daily weight. Concentrate TPN #Severe protein calorie malnutrition: on TPN #Thrombocytopenia: unclear. Onc concerned of myelodysplastic process. Not on heparin products. Transfuse if <10. Checking DPD genotype #Ileus: no obstruction on CT. Bowel rest. Avoid anticholinergics. Uncontrolled hypothyroidism #Diarrhea: negative C diff, but will check full panel #Parotiditis: sxs improved, off abx #Sepsis: resolved #Fatigue: multifactorial. TSH 24, low free T3/4. Increase LT4 #Hypothyroidism: increase LT4 to 100mcg #hypokalemia/hypophosphatemia/hyponatremia: mild, follow #Metastatic adenocarcinoma, likely GI: FOLFOX/Herceptin. Cycle 3, day 18 -Palliative care consulted #Diet: TPN, NPO #DVT ppx: SCDs with low platelets #Disp: inpatient admission for TPN, CT scan. Case d/w Dr. Ospina. If not clinically improved after Lasix,will transfer to SDU Critical care time spent: 75 min bedside evaluating pt, reviewing echo CXR, d/w Addendum: revisit patient 15:00. Symptomatically improved, but still requiring 8L, crackles. Transfer to SDU for Bipap, cont diuresis. If not improved, eval with CT Objective: Vital Signs Temp Pulse Resp BP Pulse Ox 35.9 C L 92 30 H 142/68 H 94 02/13/18 08:00 02/13/18 08:49 02/13/18 08:49 02/13/18 08:00 02/13/18 08:49 Laboratory Results 02/13/18 05:20 02/12/18 18:45 02/12/18 02/13/18 02/14/18 05:59 05:59 05:59 Intake Total 1360 4046 Output Total 400 850 Balance 960 3196 PT 15.6 SEC (12.0-15.0) H 02/13/18 05:20 INR 1.22 (0.83-1.16) H 02/13/18 05:20 ICD10 Worksheet Patient Problems: Problems Problem Status Onset Adenocarcinoma Acute Neutropenia Acute Neutropenia Acute Thrombocytopenia Acute Thrombocytopenia Acute
[2018-02-13] MEDS ORDERED: LORazepam 2 MG/ML INJ IVP PRN (09:10)
[2018-02-13] MEDS ORDERED: PATCH REMOVAL 1 EA PATCH TD SCH (15:28)
[2018-02-13] MEDS ORDERED: ALBUMIN 25% 200 ML IV ONE (17:09)
[2018-02-13] MEDS ORDERED: ALBUMIN 25% 100 ML IV SCH (18:00)
[2018-02-13] MEDS: OLANZapine 5 MG TAB PO SCH (20:17)
[2018-02-13] MEDS: TPN W/ FAMOTIDINE 1 EA BAG IV SCH (20:45)
--- NOTE | 2018-02-13 21:40 | SOAPPROG ---
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 1. Metastatic adenocarcinoma, likely GI source: She was initiated on FOLFOX and Herceptin cycle 3 day 20. Review of outpatient records demonstrate response with falling tumor markers however inability to take PO is somewhat discordant with this. CTAP on 02/12 with adynamic ileus, response of measurable tumor, evidence of colitis (perhaps neutropenic enterocolitis, negative GI panel recently) 2. Malnutrition and failure to thrive: She currently is receiving TPN. CT with adynamic ileus and perhaps colitis. -Continue TPN/bowel rest -Stopped antimotility/spasmodic agents 3. Thrombocytopenia: Progressive worsening, can be sequestration from oxaliplatin induced liver changes but unlikely so far out from chemotherapy and is usually not this severe. No splenomegaly on CTAP 02/12. 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 I am concerned for background MDS picture which may explain dramatic marrow response to an otherwise minimally myelosuppressive therapy (as evident on peripheral smear) -transfuse, keep plts >10,000 4. Chemotherapy associated neutropenia: As per above problem. Normal WBC 02/12 - no CBC today. 5. Acute hypoxemic respiratory failure Evidence of pulm edema on chest x-ray despite normal BNP and no evidence of JVD. She seems to be responding to diuresis at this point, unknown triggering event. Gabriel Ospina Subjective: Patient requiring increased o2 this morning up to 8L. Received furosemide overnight. No fevers chills or sweats. No CP. CT abdomen with evidence of colitis and adynamic ileus Objective: Vital Signs Temp Pulse Resp BP Pulse Ox 36.2 C 86 30 H 100/69 87 L 02/13/18 20:00 02/13/18 20:00 02/13/18 20:00 02/13/18 20:00 02/13/18 20:00 Laboratory Results 02/13/18 05:20 02/12/18 18:45 02/12/18 02/13/18 02/14/18 05:59 05:59 05:59 Intake Total 1360 4046 621 Output Total 313 448 2680 Balance 960 3196 -1579 PT 15.6 SEC (12.0-15.0) H 11/13/18 05:20 INR 1.22 (0.83-1.16) H 02/13/18 05:20 General: Thin female in no acute distress HEENT: PERRL, no icterus or pallor, o2 facemask Cardiovascular: Regular rate and rhythm Pulmonary: Clear to auscultation bilaterally (decreased throughout) Abdomen: distended, tympanic to percussion, nontender, no HSM Extremities: No cyanosis clubbing, 1+ LE pitting edema Psych: Appropriate affect Skin: No skin lesions ICD10 Worksheet Patient Problems: Problems Problem Status Onset Adenocarcinoma Acute Neutropenia Acute Neutropenia Acute Thrombocytopenia Acute Thrombocytopenia Acute
[2018-02-14] MEDS: ALBUMIN 25% 100 ML IV SCH ×5 (00:55→23:57)
[2018-02-14] MEDS: MBX SOLN 30 ML BOTTLE PO PRN ×3 (01:00→06:39)
[2018-02-14] MEDS: LIOTHYRONINE SODIUM 5 MCG TAB PO SCH (04:58)
[2018-02-14] MEDS: LEVOTHYROXINE 100 MCG TAB PO SCH (04:58)
[2018-02-14 05:27] LABS: INR 1.39 (0.83-1.16); PROTIME(PATIENT) 17.2 SEC (12.0-15.0)
[2018-02-14 06:04] LABS: PLATELET COUNT 45 10^3/uL (150-400)
[2018-02-14] MEDS ORDERED: FUROSEMIDE 40 MG/4 ML VIAL IVP SCH (09:00)
--- NOTE | 2018-02-14 09:42 | HOSPPROG ---
Hospitalist Progress Note Assessment/Plan: #Acute hypoxic resp failure: diastolic HF, AR on recent echo. Diuresed overnight , still with high-oxygen needs. -Herceptin can be associated with pulmonary toxicity. CT chest c/w pneumonitis. Start Solumedrol. D/w Dr. Albright #Acutely decompensated diastolic HF: echo 12/1918 grade 1 diastolic HF, AR. Decreased Lasix dosage #Severe protein calorie malnutrition: on TPN #Thrombocytopenia: myelodysplastic process? Transfuse if <10. Checking DPD genotype #Melena: FOBT pending #Ileus: no obstruction on CT. Bowel rest. Avoid anticholinergics. Uncontrolled hypothyroidism may contribute #Diarrhea: negative C diff #Parotiditis: sxs improved, off abx #Sepsis: resolved #Fatigue: multifactorial. TSH 24, low free T3/4. Increase LT4 #Hypothyroidism: increase LT4 to 100mcg #hypokalemia/hypophosphatemia/hyponatremia: mild, follow #Metastatic adenocarcinoma, likely GI: FOLFOX/Herceptin. Cycle 3, day 18 -Palliative care consulted #Diet: TPN, NPO #DVT ppx: SCDs with low platelets #Disp: inpatient admission for TPN, CT scan. Case d/w Dr. Ospina. If not clinically improved after Lasix,will transfer to SDU Critical care time spent: >40 min bedside with pt, reviewing imaging and d/w Dr. Albright Subjective: less SOB. Dry cough Objective: Vital Signs Temp Pulse Resp BP Pulse Ox 37.1 C 81 20 101/51 L 95 02/14/18 08:00 02/14/18 08:00 02/14/18 08:00 02/14/18 08:00 02/14/18 08:00 Laboratory Results 02/14/18 05:10 02/14/18 05:10 02/13/18 02/14/18 02/15/18 05:59 05:59 05:59 Intake Total 4046 1343 Output Total 850 3150 75 Balance 3196 -1807 -75 PT 17.2 SEC (12.0-15.0) H 02/14/18 05:10 INR 1.39 (0.83-1.16) H 02/14/18 05:10 - Time Spent With Patient Time Spent with Patient: greater than 35 minutes Time Spent with Patient: Greater than 35 minutes spent on this patients care, greater than 50% of time spent counseling, educating, and coordinating care regarding the above mentioned plan. - Physical Exam Constitutional: chronically ill appearing Eyes: PERRL Ears, Nose, Mouth, Throat: dry mucous membranes Cardiovascular: edema (+1-2 ankles) Respiratory: reduced air movement, No expiratory wheeze, No inspiratory crackles Genitourinary: No rose in urethra Skin: warm Musculoskeletal: generalized weakness Neurologic: AAOx3, CN II-XII Intact Psychiatric: interacting appropriately ICD10 Worksheet Patient Problems: Problems Problem Status Onset Adenocarcinoma Acute Neutropenia Acute Neutropenia Acute Thrombocytopenia Acute Thrombocytopenia Acute
[2018-02-14] MEDS: CHOLESTYRAMINE/SUCROSE 4 GM PKT PO SCH (10:01)
[2018-02-14] MEDS: POTASSIUM CL 20 MEQ PKT PO SCH (10:01)
[2018-02-14] MEDS: FUROSEMIDE 20 MG/2 ML VIAL IVP SCH ×2 (10:21→15:26)
[2018-02-14] MEDS ORDERED: methylPREDNISolone SOD SUCC 125 MG/2 ML VIAL IVP ONE (15:11)
--- NOTE | 2018-02-14 15:34 | PDINTPN ---
[employer] Progress Note Assessment/Plan: Assessment: Pulmonary infiltrates/hypoxemia: I believe appearance on CT scan is more consistent with pneumonitis, likely due to either the patient's antineoplastic medications or infection. Herceptin can occasionally cause pneumonitis, and the incidence of this may be higher patient's with widespread pulmonary metastases disease as in this patient. The could be a component of pulmonary edema as well, but the parents would be typical for this alone and the normal BNP argues against significant congestive heart failure. She is clinically improved with 2 L of diuresis. Widespread metastatic adenocarcinoma: Status post FOLFOX & Herceptin. Mucositis/colitis: Concurrently not taking p. O. And TPN has been held Thrombocytopenia: Slightly improved Anemia: Hemoglobin stable Plan: Slow down on diuresis. Check respiratory panel. Start [id number] steroids for possible medication-induced pneumonitis. Okay to transfer out of ICU. CPAP/BiPAP can be used on the floor p.r.n.. Palliative care consult 02/14/18 15:38 Subjective: The patient tolerated BiPAP for several hours last night fairly well. She feels that her breathing is a bit better. Objective: Vital Signs Temp Pulse Resp BP Pulse Ox 36.6 C 90 18 106/57 L 96 02/14/18 11:45 02/14/18 13:41 02/14/18 13:41 02/14/18 13:41 02/14/18 13:41 Laboratory Results 02/14/18 13:15 02/14/18 05:10 02/13/18 02/14/18 02/15/18 05:59 05:59 05:59 Intake Total 4046 1343 Output Total 850 3150 625 Balance 3196 -1807 -625 PT 17.2 SEC (12.0-15.0) H 02/14/18 05:10 INR 1.39 (0.83-1.16) H 02/14/18 05:10 CT chest: Extensive pneumonitis bilaterally, upper lobe predominant. Small bilateral pleural effusions. Numerous nodules consistent with metastases. Compared to CT scan done in November 2017, the pneumonitis and pleural effusions are new. On the prior scan, she had 100s of nodules consistent with metastases. Images reviewed by me Physical Exam - Physical Exam General Appearance: alert, no apparent distress EENT: normal ENT inspection Neck: normal inspection Respiratory: lungs clear, crackles (left base) Cardiac/Chest: regular rate, rhythm, edema (trace) Abdomen: normal bowel sounds, non-tender Skin: normal color, warm/dry Extremities: normal inspection Neuro/Psych: alert, normal mood/affect, oriented x 3 ICD10 Worksheet Patient Problems: Problems Problem Status Onset Adenocarcinoma Acute Neutropenia Acute Neutropenia Acute Thrombocytopenia Acute Thrombocytopenia Acute
--- NOTE | 2018-02-14 16:07 | GCON ---
PULMONARY/CRITICAL CARE CONSULTATION DATE OF CONSULTATION: 02/13/2018 REFERRING PHYSICIAN: Josy Rich MD REASON FOR REFERRAL: Evaluation and management of hypoxemia and pulmonary infiltrates. HISTORY: The patient is a 72-year-old with a history of metastatic adenocarcinoma with metastases to liver and lung. This was felt to be consistent with a GI primary. She was treated with FOLFOX plus Herceptin starting December 29, received her 3rd cycle on January 25. She developed mucositis and had difficulty maintaining hydration, so was admitted to the hospital on February 07, for hydrat ion and to arrange home TPN. She was started on TPN and has not been able to tolerate p.o. She feel s that her mouth sores are starting to get better. She had thrombocytopenia at admission, and her pl atelet count has fallen from 64 to a low of 32, now starting to recover slightly. She was on just 1- 2 L of oxygen at admission but yesterday developed increasing oxygen needs and worsening pulmonary in filtrates with venous hypertension on chest x-ray suggesting congestive heart failure/fluid overload. Her I's and O's were positive by about 8 L. Because of the increasing oxygen needs and infiltrates with positive fluid balance, she was transferred to the ICU for consideration of CPAP/BiPAP therapy as well as diuresis. She has been diuresed about 2 L, and was able to tolerate some BiPAP throughout part of the night last night. She reports that her breathing feels a bit better. She has minimal c ough and denies chest pain. She does not feel particularly dyspneic at rest. PAST MEDICAL HISTORY: Breast cancer in 2009. MEDICATIONS AT ADMISSION: Include Compazine, dicyclomine, Lomotil, omeprazole, Zofran, and Zyprexa. ALLERGIES: Macrolides. SOCIAL HISTORY: She is a nonsmoker. FAMILY HISTORY: Unremarkable. REVIEW OF SYSTEMS: A 10-point review of systems adds nothing to the history of present illness. PHYSICAL EXAMINATION: GENERAL: The patient is awake and alert. She is in no acute distress. VITAL SIGNS: Blood pressure is 106/57, with a heart rate of 90. She is afebrile. Oxygen saturations are 96% on 8 L. HEENT: Normocephalic and atraumatic. No icterus. NECK: No JVD. Trachea is midline. CHEST: She has some rales in the left more so than right base. CARDIAC: Regular rate and rhythm without murmur. ABDOMEN: Soft, nontender. Bowel sounds are present. EXTREMITIES: No clubbing, cy anosis, or edema. NEURO: The patient is awake and alert. There are no gross motor or sensory defic its. LABORATORY/IMAGING DATA: A hemoglobin is 8.9 with a platelet count of 35, up from 32, but down from 64 at admission. Her white blood count is 4.6. Her white blood count 2 days ago was 3.3 with 49% ba nds. A chemistry group is unremarkable. A BNP is 75. An INR is 1.4. A serum albumin is 1.3. A est x-ray shows marked increase in diffuse patchy alveolar infiltrates compared to the x-ray taken th e day before. Images were reviewed by me. ASSESSMENT: 1. Pulmonary infiltrates/edema. There may be a component of some pulmonary edema given the markedly positive fluid intake as well as worsening infiltrates. However, her BNP is normal, which argues ag ainst extensive fluid overload/congestive heart failure. Drug-induced pneumonitis is also a possibil ity. Infection is possible, but less likely. 2. Metastatic cancer. The patient had extensive pulmonary metastases based on a CAT scan done in 2017. 3. Thrombocytopenia. 4. Anemia. RECOMMENDATIONS: Agree with diuresis. In addition to Lasix, she may benefit from albumin due to her low serum albumin. CPAP/BiPAP may also be beneficial. /[id number]/MODL
--- NOTE | 2018-02-14 16:36 | ASMTCMCOM ---
CM Note CM Note Notes: Pt in ICU briefly for increased O2 needs and diuresis. Pt transferred back to oncology this afternoon. PT eval today continuing to recommend home care. Pt and family not yet ready for Pall or hospice care. D/C Plan: Home with [facility] and [facility] TPN infusion. Date Signed: 02/14/2018 04:35 PM Electronically Signed By:Parris Troncoso
[2018-02-14] MEDS: LOPERAMIDE HCL 1 MG/5 ML UDL PO PRN ×2 (17:37→18:42)
[2018-02-14] MEDS ORDERED: methylPREDNISolone SOD SUCC 125 MG/2 ML VIAL IVP SCH (21:00)
[2018-02-14] MEDS: TPN W/ FAMOTIDINE 1 EA BAG IV SCH (21:38)
[2018-02-14] MEDS: OLANZapine 5 MG TAB PO SCH ×2 (21:38→23:57)
[2018-02-14] MEDS: ONDANSETRON 4 MG/2 ML VIAL IVP PRN (21:44)
--- NOTE | 2018-02-14 23:04 | SOAPPROG ---
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 1. Metastatic adenocarcinoma, likely GI source: She was initiated on FOLFOX and Herceptin cycle 3 day 20. Review of outpatient records demonstrate response with falling tumor markers however inability to take PO is somewhat discordant with this. CTAP on 02/12 with adynamic ileus, response of measurable tumor, evidence of colitis (perhaps neutropenic enterocolitis, negative GI panel recently). CT of chest today concerning for pneumonitis, likely drug related. 2. Malnutrition and failure to thrive: She currently is receiving TPN. CT with adynamic ileus and perhaps colitis. -Continue TPN/bowel rest -Stopped antimotility/spasmodic agents 3. Thrombocytopenia: Progressive worsening, can be sequestration from oxaliplatin induced liver changes but unlikely so far out from chemotherapy and is usually not this severe. No splenomegaly on CTAP 02/12. 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 I am concerned for background MDS picture which may explain dramatic marrow response to an otherwise minimally myelosuppressive therapy (as evident on peripheral smear) -transfuse, keep plts >10,000 4. Chemotherapy associated neutropenia: As per above problem. Normal WBC 02/12 - no CBC today. 5. Acute hypoxemic respiratory failure Seems secondary to pneumonitis - perhaps herceptin related. There are case reports of this causing pneumonitis. Few patients have responded to steroids in those case reports. If no improvement will have to address goals of care. Garbiel Ospina 02/14/18 23:03 Subjective: Patient went to ICU over night for positive pressure ventilation to hopefully aid in diuresis. Her resp status did not improve and CT chest showed pneumonitis. Patient reports some frequent loose stool, no other issues/ complaints. Breathing is about same. No CP, no fevers or drenching N/S. Objective: Vital Signs Temp Pulse Resp BP Pulse Ox 37.0 C 81 21 H 111/62 95 02/14/18 16:00 02/14/18 16:00 02/14/18 16:00 02/14/18 16:00 02/14/18 16:00 Microbiology 02/14/18 18:00 Respiratory Panel (PCR) - Final Nasal, Sinus - Swab Human Rhinovirus/Enterovirus Laboratory Results 02/14/18 13:15 02/14/18 05:10 02/13/18 02/14/18 02/15/18 05:59 05:59 05:59 Intake Total 4046 1343 815 Output Total 850 3150 2400 Balance 8916 -2788 -2218 PT 17.2 SEC (12.0-15.0) H 02/14/18 05:10 INR 1.39 (0.83-1.16) H 02/14/18 05:10 General: Thin female in no acute distress HEENT: PERRL, no icterus or pallor, o2 facemask Cardiovascular: Regular rate and rhythm Pulmonary: poor air entry, dry crackles heard at end inspiration, end expiratory wheeze Abdomen: distended, tympanic to percussion, nontender, no HSM Extremities: No cyanosis clubbing, 1+ LE pitting edema Psych: Appropriate affect Skin: No skin lesions ICD10 Worksheet Patient Problems: Problems Problem Status Onset Adenocarcinoma Acute Neutropenia Acute Neutropenia Acute Thrombocytopenia Acute Thrombocytopenia Acute
[2018-02-15] MEDS: GUAIFENESIN/DM 10 ML UDCUP PO PRN ×2 (00:06→20:19)
[2018-02-15] MEDS: MBX SOLN 30 ML BOTTLE PO PRN ×3 (03:40→20:22)
[2018-02-15 03:55] LABS: PLATELET COUNT 69 10^3/uL (150-400)
[2018-02-15] MEDS: LIOTHYRONINE SODIUM 5 MCG TAB PO SCH (05:14)
[2018-02-15] MEDS: LEVOTHYROXINE 100 MCG TAB PO SCH (05:14)
[2018-02-15] MEDS: ALBUMIN 25% 100 ML IV SCH ×4 (05:55→23:29)
--- NOTE | 2018-02-15 08:37 | HOSPPROG ---
Hospitalist Progress Note Assessment/Plan: #Acute hypoxic resp failure: multifactorial with fluid overload, Rhino/ enterovirus or Herceptin-induced pneumonitis. Improved on steroids and diuresis #Acutely decompensated diastolic HF: echo 12/1918 grade 1 diastolic HF, AR. Change to PO Lasix #Severe protein calorie malnutrition: on TPN, IV albumin #Thrombocytopenia: myelodysplastic process? Transfuse if <10. Checking DPD genotype #Normocytic anemia: H/H drifting. FOBT negative #Ileus: no obstruction on CT. ADAT, avoid anticholinergics. #Diarrhea: negative C diff #Parotiditis: sxs improved, off abx #Sepsis: resolved #Fatigue: multifactorial. TSH 24, low free T3/4. Increase LT4 #Hypothyroidism: increase LT4 to 100mcg #hypokalemia/hypophosphatemia/hyponatremia: mild, follow #Metastatic adenocarcinoma, likely GI: FOLFOX/Herceptin. Cycle 3, day 18 -[facility] consulted. Poor prognosis. Continue family conversations ( having great difficulty) #Diet: TPN, ADAT #DVT ppx: SCDs with low platelets #Disp: inpatient admission for TPN, CT scan. Case d/w Dr. Ospina. If not clinically improved after Lasix,will transfer to SDU Subjective: Weak. Tolerating sips. Objective: Vital Signs Temp Pulse Resp BP Pulse Ox 36.5 C 74 27 H 98/55 L 97 02/15/18 08:00 02/15/18 08:00 02/15/18 08:00 02/15/18 08:00 02/15/18 08:00 Microbiology 02/14/18 18:00 Respiratory Panel (PCR) - Final Nasal, Sinus - Swab Human Rhinovirus/Enterovirus Laboratory Results 02/15/18 03:47 02/15/18 03:47 02/14/18 02/15/18 02/16/18 05:59 05:59 05:59 Intake Total 1343 1415 Output Total 3150 2500 150 Balance -1807 -1085 -150 PT 17.2 SEC (12.0-15.0) H 02/14/18 05:10 INR 1.39 (0.83-1.16) H 02/14/18 05:10 - Time Spent With Patient Time Spent with Patient: greater than 35 minutes Time Spent with Patient: Greater than 35 minutes spent on this patients care, greater than 50% of time spent counseling, educating, and coordinating care regarding the above mentioned plan. - Physical Exam Constitutional: other (ill-appearing) Ears, Nose, Mouth, Throat: moist mucous membranes Cardiovascular: regular rate and rhythym, edema (LE minimal) Respiratory: No inspiratory crackles Gastrointestinal: No tenderness Genitourinary: No rose in urethra Musculoskeletal: generalized weakness Neurologic: AAOx3, CN II-XII Intact Psychiatric: interacting appropriately ICD10 Worksheet Patient Problems: Problems Problem Status Onset Adenocarcinoma Acute Neutropenia Acute Neutropenia Acute Thrombocytopenia Acute Thrombocytopenia Acute
[2018-02-15] MEDS ORDERED: LIDOCAINE 2% VISCOUS 15 ML UDCUP PO PRN (08:52)
[2018-02-15] MEDS ORDERED: methylPREDNISolone SOD SUCC 125 MG/2 ML VIAL IVP SCH (09:00)
[2018-02-15] MEDS ORDERED: FUROSEMIDE 20 MG/2 ML VIAL IVP SCH (09:00)
[2018-02-15] MEDS: CHLORHEXIDINE GLUCONATE 15 ML UDL PO SCH ×2 (09:21→20:20)
[2018-02-15] MEDS: FUROSEMIDE 20 MG TAB PO SCH (09:21)
[2018-02-15] MEDS: POTASSIUM CL 20 MEQ PKT PO SCH (09:21)
--- NOTE | 2018-02-15 14:45 | ASMTCMCOM ---
CM Note CM Note Notes: Pt in ICU briefly yesterday for increased O2 needs and diuresis. Pt transferred back to med surg status yesterday. Pt now has additional diagnosis of rhinovirus/pneumonitis. Therapies continuing to recommend home care. Pt now open to palliative care support after meeting with power and recovery shift engineer today. Updated referral sent to [facility] for a palliative consult with pt, son and . [facility] to reach out to pt's son to schedule. CM to follow. D/C Plan: Home with [facility] and [facility] TPN infusion. Date Signed: 02/15/2018 02:44 PM Electronically Signed By:Parris Troncoso
--- NOTE | 2018-02-15 16:19 | PDINTPN ---
Piano Tuner Progress Note Assessment/Plan: Assessment: Pulmonary infiltrates/hypoxemia: I believe appearance on CT scan is more consistent with pneumonitis, likely due to either the patient's antineoplastic medications or infection from rhinovirus. Herceptin can occasionally cause pneumonitis, and the incidence of this may be higher patient's with widespread pulmonary metastases disease as in this patient. Cardiogenic pulmonary edema seems less likely. She is clinically improved with 2 L of diuresis. Widespread metastatic adenocarcinoma: Status post FOLFOX & Herceptin. Mucositis/colitis: Concurrently not taking p. O. And TPN has been held Thrombocytopenia: Slightly improved Anemia: Hemoglobin stable Plan: Reduced steroids for possible medication-induced pneumonitis. Okay to transfer out of ICU. Palliative care consult 02/15/18 16:18 Subjective: Feels a bit better. Endurance/dyspnea improving. Denies cough. Objective: Vital Signs Temp Pulse Resp BP Pulse Ox 36.5 C 74 27 H 98/55 L 95 02/15/18 08:00 02/15/18 08:00 02/15/18 08:00 02/15/18 08:00 02/15/18 10:20 Microbiology 02/14/18 18:00 Respiratory Panel (PCR) - Final Nasal, Sinus - Swab Human Rhinovirus/Enterovirus Laboratory Results 02/15/18 03:47 02/15/18 03:47 02/14/18 02/15/18 02/16/18 05:59 05:59 05:59 Intake Total 1343 1415 Output Total 3150 2500 150 Balance -1807 -1085 -150 PT 17.2 SEC (12.0-15.0) H 02/14/18 05:10 INR 1.39 (0.83-1.16) H 02/14/18 05:10 Microbiology 02/14/18 18:00 Nasal, Sinus - Swab Respiratory Panel (PCR) - Final Human Rhinovirus/Enterovirus Physical Exam - Physical Exam General Appearance: alert, no apparent distress EENT: normal ENT inspection Neck: normal inspection Respiratory: lungs clear, No normal breath sounds Cardiac/Chest: normal peripheral pulses, regular rate, rhythm Abdomen: normal bowel sounds, non-tender Skin: normal color, warm/dry Extremities: normal inspection Neuro/Psych: alert, normal mood/affect, oriented x 3 ICD10 Worksheet Patient Problems: Problems Problem Status Onset Adenocarcinoma Acute Neutropenia Acute Neutropenia Acute Thrombocytopenia Acute Thrombocytopenia Acute
--- NOTE | 2018-02-15 19:16 | SOAPPROG ---
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 1. Metastatic adenocarcinoma, likely GI source: She was initiated on FOLFOX and Herceptin cycle 3 day 20. Review of outpatient records demonstrate response with falling tumor markers however inability to take PO is somewhat discordant with this. CTAP on 02/12 with adynamic ileus, response of measurable tumor, evidence of colitis (perhaps neutropenic enterocolitis, negative GI panel recently). CT of chest today concerning for pneumonitis, likely drug related. 2. Malnutrition and failure to thrive: She currently is receiving TPN. CT with adynamic ileus and perhaps colitis. -Continue TPN/bowel rest -Stopped antimotility/spasmodic agents 3. Thrombocytopenia: Can be sequestration from oxaliplatin induced liver changes but unlikely so far out from chemotherapy and is usually not this severe. No splenomegaly on CTAP 02/12. 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 I am concerned for background MDS picture which may explain dramatic marrow response to an otherwise minimally myelosuppressive therapy (as evident on peripheral smear) -transfuse, keep plts >10,000 4. Chemotherapy associated neutropenia: As per above problem. Slowly improving 5. Acute hypoxemic respiratory failure Seems secondary to pneumonitis - perhaps herceptin related. Positive nares rhinovirus at least begs question if CT findings are related to viral infection. Seems to be responding to steroids with clinical improvement -continue steroids Gabriel Ospina 02/14/18 23:03 02/15/18 19:13 02/15/18 19:17 Subjective: CT yesterday with evidence of pneumonitis. Patient reports feeling better after dose of steroids yesterday. Improved energy level, improved breathing. No nausea or vomiting. No CP. One normal BM Objective: Vital Signs Temp Pulse Resp BP Pulse Ox 36.4 C 69 25 H 107/69 96 02/15/18 17:47 02/15/18 17:47 02/15/18 17:47 02/15/18 17:47 02/15/18 17:47 Microbiology 02/14/18 18:00 Respiratory Panel (PCR) - Final Nasal, Sinus - Swab Human Rhinovirus/Enterovirus Laboratory Results 02/15/18 03:47 02/15/18 03:47 02/14/18 02/15/18 02/16/18 05:59 05:59 05:59 Intake Total 1343 1415 420 Output Total 3150 2500 150 Balance -1807 -1085 270 PT 17.2 SEC (12.0-15.0) H 02/14/18 05:10 INR 1.39 (0.83-1.16) H 02/14/18 05:10 General: Thin female in no acute distress HEENT: PERRL, no icterus or pallor, o2 facemask Cardiovascular: Regular rate and rhythm Pulmonary: poor air entry (improved since yesterday), dry crackles heard at end inspiration, end expiratory wheeze Abdomen: distended, tympanic to percussion, nontender, no HSM Extremities: No cyanosis clubbing, 1+ LE pitting edema Psych: Appropriate affect Skin: No skin lesions ICD10 Worksheet Patient Problems: Problems Problem Status Onset Adenocarcinoma Acute Neutropenia Acute Neutropenia Acute Thrombocytopenia Acute Thrombocytopenia Acute
[2018-02-15] MEDS ORDERED: FUROSEMIDE 20 MG/2 ML VIAL IVP ONE (20:44)
[2018-02-15] MEDS: OLANZapine 5 MG TAB PO SCH (21:05)
[2018-02-15] MEDS: TPN W/ FAMOTIDINE 1 EA BAG IV SCH (21:08)
[2018-02-15] MEDS: BENZONATATE 100 MG CAP PO PRN (22:19)
[2018-02-15] MEDS: IPRATROPIUM/ALBUTEROL 3 ML DEYVIAL IH PRN (23:38)
[2018-02-16] MEDS: GUAIFENESIN/DM 10 ML UDCUP PO PRN (03:32)
[2018-02-16] MEDS ORDERED: FUROSEMIDE 20 MG/2 ML VIAL IVP ONE ×3 (04:00→16:15)
[2018-02-16] MEDS: IPRATROPIUM/ALBUTEROL 3 ML DEYVIAL IH PRN ×2 (04:06→09:44)
--- NOTE | 2018-02-16 07:02 | HOSPPROG ---
Hospitalist Progress Note Assessment/Plan: Hospitalist night float note Paged by RN earlier this morning noting patient has increasing O2 needs. She was transferred down from SDU yesterday evening with acute hypoxic respiratory failure related to pneumonitis thought secondary to Herceptin or viral etiology. Patient was transferred after she appeared to be improving well with nebulizer treatment and steroids. Patient had been placed on bipap for a short time before patient declined further treatment with it per nursing staff. She was previously on it temporarily but appeared to do well and so was transferred back down. Patient has required increasing O2 needs and now on non-rebreather at 15 liters/minute. She did developed tachycardia up to the 120s now improved to the low 100s. Patient did receive diuresis and has had of voiding of over 1200 mL. I went to bedside to discuss with the patient and her son who is a family medicine PA and reviewed current findings and vitals changes. Patient reports that she is feeling a little fatigued and would like to try the BiPAP. CXR with diffuse bilateral alveolar opacities no significant change per my review, report is still pending. patient with transfusion in process and AM labs planned for after this. Will transfer patient to SDU for bipap support. Also discussed advanced directives as patient COR status listed FULL. Patient reports she is amenable to bipap trial but does not want intubation or compressions. Son notes patient does have advanced directives in place noting DNR status. Objective: Vital Signs Temp Pulse Resp BP Pulse Ox 37.9 C 117 H 36 H 136/64 H 93 02/16/18 06:38 02/16/18 05:53 02/16/18 05:53 02/16/18 04:33 02/16/18 05:53 Laboratory Results 02/15/18 19:20 02/15/18 03:47 02/15/18 02/16/18 02/17/18 05:59 05:59 05:59 Intake Total 1415 670 960 Output Total 2500 2300 250 Balance -1085 -1630 710 PT 17.2 SEC (12.0-15.0) H 02/14/18 05:10 INR 1.39 (0.83-1.16) H 02/14/18 05:10 ICD10 Worksheet Patient Problems: Problems Problem Status Onset Adenocarcinoma Acute Neutropenia Acute Neutropenia Acute Thrombocytopenia Acute Thrombocytopenia Acute
[2018-02-16] MEDS ORDERED: methylPREDNISolone SOD SUCC 40 MG/ML VIAL IVP SCH (09:00)
[2018-02-16 11:26] LABS: PLATELET COUNT 116 10^3/uL (150-400)
[2018-02-16] MEDS: ALBUMIN 25% 100 ML IV SCH ×2 (11:54)
[2018-02-16] MEDS: FUROSEMIDE 20 MG TAB PO SCH ×2 (11:55→18:11)
[2018-02-16] MEDS: LIOTHYRONINE SODIUM 5 MCG TAB PO SCH (12:04)
[2018-02-16] MEDS: CHLORHEXIDINE GLUCONATE 15 ML UDL PO SCH ×2 (12:04→20:59)
[2018-02-16] MEDS: LEVOTHYROXINE 100 MCG TAB PO SCH (12:04)
[2018-02-16] MEDS: POTASSIUM CL 20 MEQ PKT PO SCH (12:04)
--- NOTE | 2018-02-16 12:48 | HOSPPROG ---
Hospitalist Progress Note Assessment/Plan: # acute resp failure - much worse today than yesterday per ; she has very high O2 demands - d/t pneumonitis from herceptin or viral - will increase steroids again to solu-medrol 125 iv q6 - cont nebs - check ABG - patient clearly expressed that she prefers a nasal cannula to a mask - will hold on bipap for now - received some diuresis - will continue for now and check echo - we discussed that this may be a terminal process # metastatic adenocarcinoma, suspected GI primary - s/p FOLFOX and herceptin # adynamic ileus and possible colitis, SPCM - cont TPN # pancytopenia d/t chemo - neutropenia resolved, s/p 1U PRBC today # parotiditis - off abx # hypothyroid - LT4 increased to 100 # electrolyte abnormalities - better # dvt ppx - start lovenox with platelets increasing Subjective: long discussion with patient and ; breathing still labored today; patient expresses that she would not like bipap mask Objective: Vital Signs Temp Pulse Resp BP Pulse Ox 36.1 C 94 30 H 142/66 H 96 02/16/18 11:55 02/16/18 11:55 02/16/18 11:55 02/16/18 11:55 02/16/18 11:55 Laboratory Results 02/16/18 10:35 02/16/18 10:35 02/15/18 02/16/18 02/17/18 05:59 05:59 05:59 Intake Total 1415 670 960 Output Total 2500 2300 400 Balance -1085 -1630 560 PT 17.2 SEC (12.0-15.0) H 02/14/18 05:10 INR 1.39 (0.83-1.16) H 02/14/18 05:10 chart reviewed, discussed with Dr Ospina - Time Spent With Patient Time Spent with Patient: greater than 35 minutes Time Spent with Patient: Greater than 35 minutes spent on this patients care, greater than 50% of time spent counseling, educating, and coordinating care regarding the above mentioned plan. - Physical Exam Constitutional: uncomfortable Cardiovascular: no murmur, rub, or gallop, tachycardia Respiratory: inspiratory crackles (bilat R>L), respiratory distress (increased WOB, tachypneic) Gastrointestinal: normoactive bowel sounds, soft, non-tender abdomen, no palpable masses ICD10 Worksheet Patient Problems: Problems Problem Status Onset Adenocarcinoma Acute Neutropenia Acute Neutropenia Acute Thrombocytopenia Acute Thrombocytopenia Acute
--- NOTE | 2018-02-16 15:45 | ECHO ---
[email or web address] [address] Main: [phone] Fax: Transthoracic Echocardiogram Name: RONDA BROWN MR#: [id number] Study Date: 02/16/2018 Study Time: 01:59 PM Date of : 1945 Age: 72 year(s) Height: 167.6 cm (66 in.) Weight: 58.51 kg (129 lb.) BSA: 1.66 m2 Gender: Female Examination: Echo Indication: possible pulm edema, cancer Image Quality: Adequate Contrast: Requested by: Mike Meyers BP: 142 mmHg/66 mmHg Heart Rate: Rhythm: Indication: possible pulm edema, cancer Procedure Staff Corporate Treasurer: Moraima Lewis [facility] Reading Physician: Xu Zuniga MD Requesting Provider: Conclusions: Normal size left ventricle. EF is 61 %. No regional wall motion abnormality. Normal RV function. Mild mitral valve regurgitation is present. The aortic valve is tri-leaflet and functions normally. Mild aortic valve regurgitation is present. No aortic valve stenosis is present. The tricuspid valve is normal in appearance and function. Right ventricular systolic pressure measures 32mmHg. There is no previous echocardiogram for comparison. Measurements: Chambers Valvular Assessment AV/MV Valvular Assessment TV/PV Normal Normal Normal Name Value Range Name Value Range Name Value Range Ao Bonita (MM): 2.8 cm (2.2 cm-3.7 AV Vmax: 1.37 m/s (1 m/s-1.7 TR Vmax: 2.58 mm/s ( - ) cm) m/s) TR PGmax: 27 mmHg ( - ) IVSd (2D): 0.8 cm (0.6 cm-1.1 AV maxP mmHg ( - ) syst. PAP: 32 mmHg ( - ) cm) LVOT Vmax: 1.02 m/s (0.7 m/s-1.1 PV Vmax: 0.94 m/s (0.6 m/s-0.9 LVDd (2D): 4.1 cm (3.9 cm-5.3 m/s) m/s) cm) ROBERTO (Vmax): 2.1 cm2 ( - ) PV PGmax: 4 mmHg ( - ) LVDs (2D): 2.6 cm (2.1 cm-4 MV E Vmax: 0.67 m/s ( - ) cm) MV A Vmax: 0.64 m/s ( - ) LVPWd (2D): 0.7 cm ( - ) MV E/A: 1.05 ( - ) LVOTd 1.9 cm 1.9 cm mm LVEF (BP): 61 % (>=55 %) RVDd(2D): 3.6 cm (1.9 cm-3.8 cmmm) Patient: RONDA BROWN Study Date: 02/16/2018 Page 1 of 2 01:59 PM Continued Measurements: Chambers Valvular Assessment AV/MV Valvular Assessment TV/PV Name Value Name Value Name Value LADs: 3.2 cm MV DecTime: 151 m/s CVP (est.): 5 mmHg LADs Lon.5 cm MV E/E' Septal: 11.80 LA Area: 13.5 cm2 MV E/E' Lateral: 4.90 LA Volume: 34 ml LA Volume Index: 20.5 ml/m2 TAPSE: 2.1 cm RA Area: 12.8 cm2 Additional Vessels Name Value Ao Ascendin.8 cm Findings: Left Ventricle: Normal size left ventricle. No LV hypertrophy. Normal global systolic LV function. EF is 61 %. No regional wall motion abnormality. Normal diastolic LV function. Right Ventricle: Normal size right ventricle. Normal RV function. Left Atrium: The left atrium is normal in size. Right Atrium: The right atrium is normal in size. Mitral Valve: The mitral valve is normal in appearance and function. Mild mitral valve regurgitation is present. No mitral stenosis is present. Aortic Valve: The aortic valve is tri-leaflet and functions normally. Mild aortic cusp calcification is noted. Mild aortic valve regurgitation is present. No aortic valve stenosis is present. Tricuspid Valve: The tricuspid valve is normal in appearance and function. Mild tricuspid regurgitation is present. Right ventricular systolic pressure measures 32mmHg. The pulmonary artery pressure is normal. Pulmonic Valve: The pulmonic valve is normal in appearance and function. Trivial pulmonic valve regurgitation. Aorta: Normal size aortic root measuring 2.8 cm. Normal size ascending aorta measuring 2.8 cm. IVC: Normal size and course of the IVC. Pericardium: No pericardial effusion. There is a pleural effusion. (No Signature Object) Patient: RONDA BROWN Study Date: 02/16/2018 Page 2 of 2 01:59 PM [id number]
--- NOTE | 2018-02-16 16:40 | ASMTCMCOM ---
CM Note CM Note Notes: Patient plan of care reviewed in am rounds. Patient will increasing oxygen needs and poor prognosis. She is reluctant to return to ICU for Bipap support. Pamelaon call to patient's son to report delay of discussion at this point in time. At this time the plan of care is unclear. CM to follow for needs, It is the patient's husbands desire she might return home with TPN and HHC from [facility] infusion and [facility]. Plan: TBD Date Signed: 02/16/2018 04:39 PM Electronically Signed By:Alisa López RN
[2018-02-16] MEDS ORDERED: FUROSEMIDE 20 MG/2 ML VIAL ONE (17:55)
[2018-02-16] MEDS: methylPREDNISolone SOD SUCC 125 MG/2 ML VIAL IVP SCH (18:01)
--- NOTE | 2018-02-16 18:30 | SOAPPROG ---
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 1. Metastatic adenocarcinoma, likely GI source: She was initiated on FOLFOX and Herceptin cycle 3 day 20. Review of outpatient records demonstrate response with falling tumor markers however inability to take PO is somewhat discordant with this. CTAP on 02/12 with adynamic ileus, response of measurable tumor, evidence of colitis (perhaps neutropenic enterocolitis, negative GI panel recently). CT of chest concerning for pneumonitis, likely drug related. 2. Malnutrition and failure to thrive: She currently is receiving TPN. CT with adynamic ileus and perhaps colitis. Seems that bowel function is slowly improving -Continue TPN/bowel rest -Stopped antimotility/spasmodic agents 3. Thrombocytopenia: Can be sequestration from oxaliplatin induced liver changes but unlikely so far out from chemotherapy and is usually not this severe. No splenomegaly on CTAP 02/12. DPD deficiency genotype was negative which was surprising. I am concerned for background MDS picture which may explain dramatic marrow response to an otherwise minimally myelosuppressive therapy (as evident on peripheral smear) -transfuse, keep plts >10,000 4. Chemotherapy associated neutropenia: resolved (see above) 5. Acute hypoxemic respiratory failure Seems secondary to pneumonitis - perhaps herceptin related. Positive nares rhinovirus at least begs question if CT findings are related to viral infection although seems less likely given she would have had to be infected in the hospital. -continue steroids -appreciate pulmonary reccs We had a long discussion today - the patient, her and son - in essence we discussed that this was not a curable malignancy and that decisions moving forward should be made in that context (something they felt they were not aware of). I am concerned that she may never be strong enough for continued therapy let alone the open question regarding herceptin's role in her pulmonary decompensation. This conversation was roughly 30 mins. Gabriel Ospina 02/16/18 18:39 Subjective: Patient did well most of yesterday but overnight decompensated and is currently on NRB oxygen. She feels more short of breath. No new symptoms Objective: Vital Signs Temp Pulse Resp BP Pulse Ox 36.6 C 84 18 124/76 H 97 02/16/18 17:16 02/16/18 17:16 02/16/18 17:16 02/16/18 17:16 02/16/18 17:16 Laboratory Results 02/16/18 10:35 02/16/18 10:35 02/15/18 02/16/18 02/17/18 05:59 05:59 05:59 Intake Total 1415 670 960 Output Total 2500 2300 1250 Balance -1085 -1630 -290 PT 17.2 SEC (12.0-15.0) H 02/14/18 05:10 INR 1.39 (0.83-1.16) H 02/14/18 05:10 General: Thin female in no acute distress, mildly toxic appearing HEENT: PERRL, no icterus or pallor, o2 facemask Cardiovascular: Regular rate and rhythm Pulmonary: poor air entry , dry crackles heard at end inspiration, end expiratory wheeze Abdomen: distended, tympanic to percussion, nontender, no HSM Extremities: No cyanosis clubbing, 1+ LE pitting edema Psych: Appropriate affect Skin: No skin lesions ICD10 Worksheet Patient Problems: Problems Problem Status Onset Adenocarcinoma Acute Neutropenia Acute Neutropenia Acute Thrombocytopenia Acute Thrombocytopenia Acute
[2018-02-16] MEDS: TPN W/ FAMOTIDINE 1 EA BAG IV SCH (20:43)
[2018-02-16] MEDS: OLANZapine 5 MG TAB PO SCH (20:59)
[2018-02-17] MEDS: methylPREDNISolone SOD SUCC 125 MG/2 ML VIAL IVP SCH ×4 (00:05→18:29)
[2018-02-17] MEDS: GUAIFENESIN/DM 10 ML UDCUP PO PRN (03:43)
[2018-02-17] MEDS: LIOTHYRONINE SODIUM 5 MCG TAB PO SCH (03:54)
[2018-02-17] MEDS: LEVOTHYROXINE 100 MCG TAB PO SCH (03:54)
[2018-02-17 04:23] LABS: PLATELET COUNT 121 10^3/uL (150-400)
[2018-02-17] MEDS: IPRATROPIUM/ALBUTEROL 3 ML DEYVIAL IH PRN ×2 (06:06→13:59)
[2018-02-17] MEDS ORDERED: OLANZapine 5 MG TAB PO PRN (09:41)
--- NOTE | 2018-02-17 10:09 | HOSPPROG ---
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 - s/p FOLFOX and herceptin # adynamic ileus and possible colitis, SPCM - cont TPN - paitent would like to try some small amount of food tosay # pancytopenia d/t chemo - neutropenia resolved, s/p 1U PRBC # parotiditis - off abx # hypothyroid - LT4 increased to 100 # electrolyte abnormalities - better # dvt ppx - lovenox Subjective: more alert today; still high O2 demands; i met with son, and patient Objective: Vital Signs Temp Pulse Resp BP Pulse Ox 36.5 C 93 14 142/64 H 95 02/17/18 07:44 02/17/18 07:44 02/17/18 07:44 02/17/18 07:44 02/17/18 07:44 Laboratory Results 02/17/18 04:13 02/17/18 04:13 02/16/18 02/17/18 02/18/18 05:59 05:59 05:59 Intake Total 670 960 Output Total 2300 2175 200 Balance -1630 -1215 -200 PT 17.2 SEC (12.0-15.0) H 02/14/18 05:10 INR 1.39 (0.83-1.16) H 02/14/18 05:10 - Time Spent With Patient Time Spent with Patient: greater than 35 minutes Time Spent with Patient: Greater than 35 minutes spent on this patients care, greater than 50% of time spent counseling, educating, and coordinating care regarding the above mentioned plan. - Physical Exam Constitutional: uncomfortable Respiratory: other (visibly tachpneic and increased WOB) ICD10 Worksheet Patient Problems: Problems Problem Status Onset Adenocarcinoma Acute Neutropenia Acute Neutropenia Acute Thrombocytopenia Acute Thrombocytopenia Acute
--- NOTE | 2018-02-17 11:19 | SOAPPROG ---
SOAP Progress Note Assessment/Plan: Assessment: ssessment/Plan: This is a 72-year-old female with history of metastatic adenocarcinoma that is HER2 positive thought to be secondary for GI source admitted for deconditioning. 1. Metastatic adenocarcinoma, likely GI source: She was initiated on FOLFOX and Herceptin cycle 3 day 21. Review of outpatient records demonstrate response with falling tumor markers however inability to take PO is somewhat discordant with this. CTAP on 02/12 with adynamic ileus, response of measurable tumor, evidence of colitis (perhaps neutropenic enterocolitis, negative GI panel recently). CT of chest concerning for pneumonitis, likely drug related. 2. Malnutrition and failure to thrive: She currently is receiving TPN. CT with adynamic ileus and perhaps colitis. Seems that bowel function is slowly improving -Continue TPN/bowel rest -Stopped antimotility/spasmodic agents 3. Thrombocytopenia: improved 4. Chemotherapy associated neutropenia: resolved (see above) 5. Acute hypoxemic respiratory failure Seems secondary to pneumonitis - perhaps herceptin related. Positive nares rhinovirus at least begs question if CT findings are related to viral infection although seems less likely given she would have had to be infected in the hospital. -continue steroids -appreciate pulmonary reccs Plan:continue supportive care, they remain quite hopeful 02/17/18 11:17 Subjective: Alert, ill appearing Objective: Vital Signs Temp Pulse Resp BP Pulse Ox 97.7 F 93 14 142/64 H 95 02/17/18 07:44 02/17/18 07:44 02/17/18 07:44 02/17/18 07:44 02/17/18 07:44 Laboratory Results 02/17/18 04:13 02/17/18 04:13 02/16/18 02/17/18 02/18/18 05:59 05:59 05:59 Intake Total 670 960 Output Total 2300 2175 200 Balance -1630 -1215 -200 PT 17.2 SEC (12.0-15.0) H 02/14/18 05:10 INR 1.39 (0.83-1.16) H 02/14/18 05:10 ICD10 Worksheet Patient Problems: Problems Problem Status Onset Adenocarcinoma Acute Neutropenia Acute Neutropenia Acute Thrombocytopenia Acute Thrombocytopenia Acute
[2018-02-17] MEDS: ENOXAPARIN 40 MG/0.4 ML SYR SC SCH (13:14)
[2018-02-17] MEDS: CHLORHEXIDINE GLUCONATE 15 ML UDL PO SCH (13:14)
[2018-02-17] MEDS: POTASSIUM CL 20 MEQ PKT PO SCH (13:30)
[2018-02-17] MEDS: FUROSEMIDE 20 MG TAB PO SCH (13:30)
[2018-02-17] MEDS: TPN W/ FAMOTIDINE 1 EA BAG IV SCH (20:39)
[2018-02-18] MEDS: methylPREDNISolone SOD SUCC 125 MG/2 ML VIAL IVP SCH ×4 (00:33→18:28)
[2018-02-18] MEDS: LEVOTHYROXINE 100 MCG TAB PO SCH (04:00)
[2018-02-18] MEDS: LIOTHYRONINE SODIUM 5 MCG TAB PO SCH (04:00)
[2018-02-18 04:41] LABS: PLATELET COUNT 127 10^3/uL (150-400)
[2018-02-18] MEDS: ENOXAPARIN 40 MG/0.4 ML SYR SC SCH (10:45)
--- NOTE | 2018-02-18 12:36 | SOAPPROG ---
SOAP Progress Note Assessment/Plan: Assessment: ssessment/Plan: This is a 72-year-old female with history of metastatic adenocarcinoma that is HER2 positive thought to be secondary for GI source admitted for deconditioning. 1. Metastatic adenocarcinoma, likely GI source: She was initiated on FOLFOX and Herceptin cycle 3 day 21. Review of outpatient records demonstrate response with falling tumor markers however inability to take PO is somewhat discordant with this. CTAP on 02/12 with adynamic ileus, response of measurable tumor, evidence of colitis (perhaps neutropenic enterocolitis, negative GI panel recently). CT of chest concerning for pneumonitis, likely drug related. 2. Malnutrition and failure to thrive: She currently is receiving TPN. CT with adynamic ileus and perhaps colitis. Seems that bowel function is slowly improving -Continue TPN/could advance diet slowly, abdominal film a bit better -Stopped antimotility/spasmodic agents 3. Thrombocytopenia: improved 4. Chemotherapy associated neutropenia: resolved (see above) 5. Acute hypoxemic respiratory failure Seems secondary to pneumonitis - perhaps herceptin related. Positive nares rhinovirus at least begs question if CT findings are related to viral infection although seems less likely given she would have had to be infected in the hospital. -continue steroids, high dose solumedrol.CXR dose show some improvement, tolerating some decrease in FIO2 Plan:continue supportive care, there is some improvement today, long discussion with pt and family 02/17/18 11:17 02/18/18 12:33 02/18/18 12:36 Subjective: up in chair Objective: Vital Signs Temp Pulse Resp BP Pulse Ox 98.3 F 71 28 H 126/62 H 95 02/18/18 07:40 02/18/18 11:28 02/18/18 11:28 02/18/18 07:40 02/18/18 11:28 Laboratory Results 02/18/18 04:12 02/18/18 04:12 02/17/18 02/18/18 02/19/18 05:59 05:59 05:59 Intake Total 960 125 Output Total 2175 1350 400 Balance -1215 -1225 -400 PT 17.2 SEC (12.0-15.0) H 02/14/18 05:10 INR 1.39 (0.83-1.16) H 02/14/18 05:10 ICD10 Worksheet Patient Problems: Problems Problem Status Onset Adenocarcinoma Acute Neutropenia Acute Neutropenia Acute Thrombocytopenia Acute Thrombocytopenia Acute
[2018-02-18] MEDS ORDERED: D50W 25 GM/50 ML SYR IVP PRN (13:51)
--- NOTE | 2018-02-18 15:52 | HOSPPROG ---
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 - s/p FOLFOX and herceptin - Dr Valladares plans to present her case at tumor board # adynamic ileus and possible colitis; slight improvement on AXR today - starting to eat small amounts of food - cont TPN # SPCM # pancytopenia d/t chemo - neutropenia resolved, s/p 1U PRBC # parotiditis - off abx # hypothyroid - LT4 increased to 100 # electrolyte abnormalities - better # DM d/t steroids - start low dose SSI today # dvt ppx - lovenox # goals - felt somewhat harassed by palliative care previously; we discussed that they would meet again tomorrow Subjective: feels slightly better today; slight improvement in dyspnea; discussed with patient and Objective: Vital Signs Temp Pulse Resp BP Pulse Ox 36.8 C 71 28 H 126/62 H 95 02/18/18 07:40 02/18/18 11:28 02/18/18 11:28 02/18/18 07:40 02/18/18 11:28 Laboratory Results 02/18/18 04:12 02/18/18 04:12 02/17/18 02/18/18 02/19/18 05:59 05:59 05:59 Intake Total 960 125 Output Total 2175 1350 400 Balance -1215 -1225 -400 PT 17.2 SEC (12.0-15.0) H 02/14/18 05:10 INR 1.39 (0.83-1.16) H 02/14/18 05:10 - Time Spent With Patient Time Spent with Patient: greater than 35 minutes Time Spent with Patient: Greater than 35 minutes spent on this patients care, greater than 50% of time spent counseling, educating, and coordinating care regarding the above mentioned plan. - Physical Exam Constitutional: chronically ill appearing Respiratory: respiratory distress (mild, some increase in WOB) ICD10 Worksheet Patient Problems: Problems Problem Status Onset Adenocarcinoma Acute Neutropenia Acute Neutropenia Acute Thrombocytopenia Acute Thrombocytopenia Acute
[2018-02-18] MEDS ORDERED: DIPHENOXYLATE/ATROPINE LOMOTIL 1 TAB PO PRN (17:56)
[2018-02-18] MEDS: INSULIN LISPRO 100 UNIT/ML SC SCH (19:55)
[2018-02-18] MEDS: TPN W/ FAMOTIDINE 1 EA BAG IV SCH (20:43)
[2018-02-18] MEDS: DICYCLOMINE 10 MG CAP PO PRN (21:03)
[2018-02-19] MEDS: INSULIN LISPRO 100 UNIT/ML SC SCH ×3 (01:55→18:45)
[2018-02-19] MEDS: methylPREDNISolone SOD SUCC 125 MG/2 ML VIAL IVP SCH ×4 (01:57→18:22)
[2018-02-19] MEDS: LEVOTHYROXINE 100 MCG TAB PO SCH (04:27)
[2018-02-19] MEDS: LIOTHYRONINE SODIUM 5 MCG TAB PO SCH (04:27)
[2018-02-19 09:36] LABS: PLATELET COUNT 142 10^3/uL (150-400)
[2018-02-19 09:46] LABS: INR 1.23 (0.83-1.16); PROTIME(PATIENT) 15.7 SEC (12.0-15.0)
--- NOTE | 2018-02-19 15:32 | HOSPPROG ---
Hospitalist Progress Note Assessment/Plan: * Acute respiratory failure - still extreme high O2 needs * Pneumonitis - due to herceptin vs. viral vs. malignancy -high dose IV solumedrol -d/w Dr. Brandin Goel - need ongoing pulmonary input -d dimer 3.6 and high risk for PE given metastatic malignancy -chest CTA chest rule out PE, last CT done w/o contrast * Metastatic adenoca - GI primary - lung and liver mets * Severe mucositis with dehydration and electrolyte depletion -continue TPN * Severe protein calorie malnutrition * Pancytopenia due to chemo * Chemo induced colitis -GI PCR negative * h/o thyroid and breast cancer Subjective: No new compliants, feels better Objective: Vital Signs Temp Pulse Resp BP Pulse Ox 37.1 C 66 16 144/68 H 95 02/19/18 08:29 02/19/18 12:25 02/19/18 12:25 02/19/18 08:29 02/19/18 12:25 Laboratory Results 02/19/18 09:20 02/19/18 09:20 02/18/18 02/19/18 02/20/18 05:59 05:59 05:59 Intake Total 125 1816 Output Total 1350 970 Balance -1225 846 PT 15.7 SEC (12.0-15.0) H 02/19/18 09:20 INR 1.23 (0.83-1.16) H 02/19/18 09:20 CT chest reviewed - pneumonitis, not done with IV contrast CXR viewed, my personal interpretation is - bilateral infiltrates - Physical Exam Constitutional: no apparent distress, appears nourished, not in pain Cardiovascular: regular rate and rhythym, no murmur, rub, or gallop Respiratory: no respiratory distress, no rales or rhonchi, clear to auscultation Gastrointestinal: normoactive bowel sounds, soft, non-tender abdomen, no palpable masses Skin: no rashes or abrasions, no fluctuance, no induration Neurologic: AAOx3, sensation intact bilaterally Psychiatric: interacting appropriately, not anxious, not encephalopathic, thought process linear ICD10 Worksheet Patient Problems: Problems Problem Status Onset Adenocarcinoma Acute Neutropenia Acute Neutropenia Acute Thrombocytopenia Acute Thrombocytopenia Acute
--- NOTE | 2018-02-19 15:37 | SOAPPROG ---
SOAP Progress Note Assessment/Plan: E&M for metastatic adenocarcinoma * Metastatic adenocarcinoma, likely GI source; HER2 positive: She is day 25; cycle3 of FOLFOX and Herceptin. She has had a tumor marker response but difficult time tolerating the treatment. Dose adjustments will probably need to be made at the next treatment. * Acute hypoxemic respiratory failure: CTA appears to be pneumonitis. Unclear if due to viral, drug such as Herceptin, or something else. She is currently on steroids with improvement. We will continue to monitor and treat. * Malnutrition and failure to thrive: She is trying to slowly advance her diet with bland's. Too early to tell if she has resolved. Subjective: Her is with her. Both report that her breathing has been getting better and she is more comfortable using the nasal cannula rather than the mask. Her abdominal pain and colitis has also significantly improved. Objective: Vital Signs Temp Pulse Resp BP Pulse Ox 37.1 C 66 16 144/68 H 95 02/19/18 08:29 02/19/18 12:25 02/19/18 12:25 02/19/18 08:29 02/19/18 12:25 Laboratory Results 02/19/18 09:20 02/19/18 09:20 02/18/18 02/19/18 02/20/18 05:59 05:59 05:59 Intake Total 125 1816 Output Total 1350 970 Balance -1225 846 PT 15.7 SEC (12.0-15.0) H 02/19/18 09:20 INR 1.23 (0.83-1.16) H 02/19/18 09:20 Physical Exam - Physical Exam General Appearance: no apparent distress Respiratory: rales, other (Tachypnea) Cardiac/Chest: regular rate, rhythm Abdomen: normal bowel sounds, non-tender, soft ICD10 Worksheet Patient Problems: Problems Problem Status Onset Adenocarcinoma Acute Neutropenia Acute Neutropenia Acute Thrombocytopenia Acute Thrombocytopenia Acute
[2018-02-19] MEDS ORDERED: IOPAMIDOL (ISOVUE 370) 100 ML BTL IV ONE (16:33)
--- NOTE | 2018-02-19 17:33 | SOAPPROG ---
SOAP Progress Note Assessment/Plan: Assessment: Pneumonitis: Significantly improved at this point. CT scan much better. Oxygen requirements have decreased significantly. Probably secondary to drug- induced pneumonitis, responding to steroids. Metastatic adenocarcinoma, presumably from the colon. Plan: Can start to decrease IV steroids tomorrow. Will follow with you. No indication for bronchoscopy at this point secondary to significant improving pulmonary status. Subjective: Doing okay, tired. Status post repeat CT scan of the chest Objective: Vital Signs Temp Pulse Resp BP Pulse Ox 36.4 C 66 18 144/70 H 98 02/19/18 16:04 02/19/18 16:13 02/19/18 16:13 02/19/18 16:04 02/19/18 16:13 Laboratory Results 02/19/18 09:20 02/19/18 09:20 02/18/18 02/19/18 02/20/18 05:59 05:59 05:59 Intake Total 125 1816 Output Total 1350 970 Balance -1225 846 PT 15.7 SEC (12.0-15.0) H 02/19/18 09:20 INR 1.23 (0.83-1.16) H 02/19/18 09:20 CT angiogram: No pulmonary emboli. Significantly improved bilateral pulmonary infiltrates. Physical Exam - Physical Exam General Appearance: alert, mild distress, thin EENT: PERRL/EOMI, other (Nasal cannula in place. Now down to 4 L) Neck: normal inspection (No JVD) Respiratory: decreased breath sounds, crackles (Bilaterally posteriorly, essentially all lung river), No rhonchi, No wheezing Cardiac/Chest: regular rate, rhythm Abdomen: normal bowel sounds, non-tender, soft Skin: warm/dry, pallor Extremities: No pedal edema Neuro/Psych: no motor/sensory deficits, No cognition abnormalities ICD10 Worksheet Patient Problems: Problems Problem Status Onset Adenocarcinoma Acute Neutropenia Acute Neutropenia Acute Thrombocytopenia Acute Thrombocytopenia Acute
[2018-02-19] MEDS: ENOXAPARIN 40 MG/0.4 ML SYR SC SCH (18:48)
[2018-02-19] MEDS: TPN W/ FAMOTIDINE 1 EA BAG IV SCH (21:19)
[2018-02-20] MEDS: MBX SOLN 30 ML BOTTLE PO PRN ×4 (00:03→16:58)
[2018-02-20] MEDS: INSULIN LISPRO 100 UNIT/ML SC SCH ×4 (00:05→17:42)
[2018-02-20] MEDS: methylPREDNISolone SOD SUCC 125 MG/2 ML VIAL IVP SCH ×4 (00:05→18:08)
[2018-02-20 05:23] LABS: PLATELET COUNT 148 10^3/uL (150-400)
[2018-02-20] MEDS: LIOTHYRONINE SODIUM 5 MCG TAB PO SCH (06:49)
[2018-02-20] MEDS: LEVOTHYROXINE 100 MCG TAB PO SCH (06:49)
[2018-02-20] MEDS: ENOXAPARIN 40 MG/0.4 ML SYR SC SCH (09:38)
--- NOTE | 2018-02-20 10:34 | SOAPPROG ---
SOAP Progress Note Assessment/Plan: E&M for metastatic adenocarcinoma * Metastatic adenocarcinoma, likely GI source; HER2 positive: She is day 26; cycle3 of FOLFOX and Herceptin. She has had a tumor marker response but difficult time tolerating the treatment. Dose adjustments or treatment changes will need to be made at the next treatment. * Acute hypoxemic respiratory failure: CTA appears to be pneumonitis although cannot r/o lymphangitic spread. Unclear if due to viral, drug such as Herceptin , or something else. She is currently on steroids with improvement. We will continue to monitor and treat. * Malnutrition and failure to thrive: She is trying to slowly advance her diet with bland's. Too early to tell if she has resolved. Will continue TPN. Subjective: Feeling better. Ate small amount but tolerated it. Objective: Vital Signs Temp Pulse Resp BP Pulse Ox 36.3 C 68 19 130/70 H 92 02/20/18 09:00 02/20/18 09:00 02/20/18 09:00 02/20/18 09:00 02/20/18 09:00 Laboratory Results 02/20/18 04:55 02/19/18 09:20 02/19/18 02/20/18 02/21/18 05:59 05:59 05:59 Intake Total 1816 1000 Output Total 970 704 Balance 846 296 PT 15.7 SEC (12.0-15.0) H 02/19/18 09:20 INR 1.23 (0.83-1.16) H 02/19/18 09:20 CT of the Chest With Contrast (CT Pulmonary Angiogram) 02/19/2018 Impression: 1. Negative CT examination of the chest for acute pulmonary thromboembolic disease. 2. Significant interval improvement in bilateral pulmonary edema from prior examination. 3. 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 4. Small bilateral pleural effusions with bilateral lower lobe atelectasis Dictated By: Joselo Walton MD Physical Exam - Physical Exam General Appearance: no apparent distress Respiratory: respiratory distress Cardiac/Chest: regular rate, rhythm Abdomen: non-tender, soft ICD10 Worksheet Patient Problems: Problems Problem Status Onset Adenocarcinoma Acute Neutropenia Acute Neutropenia Acute Thrombocytopenia Acute Thrombocytopenia Acute
--- NOTE | 2018-02-20 12:14 | ASMTCMCOM ---
CM Note CM Note Notes: Patient plan of care reviewed in rounds. She is slowly improving an oxygen needs are decreasing. She still requires TPN for nutritional support. Slow taper of steroids. Plan: Home with Home infusion and HHC when medically cleared for discharge. Date Signed: 02/20/2018 12:13 PM Electronically Signed By:Alisa López RN
--- NOTE | 2018-02-20 16:11 | HOSPPROG ---
Hospitalist Progress Note Assessment/Plan: * Acute respiratory failure -O2 finally weaning down * Pneumonitis - due to herceptin vs. viral vs. malignancy -high dose IV solumedrol - taper per Dr. Goel -CT chest improving * Metastatic adenoca - GI primary - lung and liver mets * Severe mucositis with dehydration and electrolyte depletion -continue TPN * Severe protein calorie malnutrition * Pancytopenia due to chemo * Chemo induced colitis -GI PCR negative * h/o thyroid and breast cancer Subjective: Doing a little better. Some increased PO Objective: Vital Signs Temp Pulse Resp BP Pulse Ox 36.3 C 62 18 134/86 H 96 02/20/18 09:00 02/20/18 15:40 02/20/18 15:40 02/20/18 15:40 02/20/18 15:40 Laboratory Results 02/20/18 04:55 02/19/18 09:20 02/19/18 02/20/18 02/21/18 05:59 05:59 05:59 Intake Total 1816 1000 Output Total 970 704 Balance 846 296 PT 15.7 SEC (12.0-15.0) H 02/19/18 09:20 INR 1.23 (0.83-1.16) H 02/19/18 09:20 d/w Dr Goel regarding steroid plan cta chest - no PE, improved infiltrates - Physical Exam Constitutional: no apparent distress, appears nourished, not in pain Cardiovascular: regular rate and rhythym, no murmur, rub, or gallop Respiratory: no respiratory distress, inspiratory crackles, No expiratory wheeze , No rhonchi Gastrointestinal: normoactive bowel sounds, soft, non-tender abdomen, no palpable masses Skin: no rashes or abrasions, no fluctuance, no induration Neurologic: AAOx3, sensation intact bilaterally Psychiatric: interacting appropriately, not anxious, not encephalopathic, thought process linear ICD10 Worksheet Patient Problems: Problems Problem Status Onset Adenocarcinoma Acute Neutropenia Acute Neutropenia Acute Thrombocytopenia Acute Thrombocytopenia Acute
[2018-02-20] MEDS: TPN W/ FAMOTIDINE 1 EA BAG IV SCH (21:32)
[2018-02-21] MEDS: methylPREDNISolone SOD SUCC 125 MG/2 ML VIAL IVP SCH ×2 (01:15→05:44)
[2018-02-21] MEDS: INSULIN LISPRO 100 UNIT/ML SC SCH ×3 (01:15→13:08)
[2018-02-21] MEDS: LIOTHYRONINE SODIUM 5 MCG TAB PO SCH (04:21)
[2018-02-21] MEDS: LEVOTHYROXINE 100 MCG TAB PO SCH (04:21)
[2018-02-21 05:04] LABS: PLATELET COUNT 157 10^3/uL (150-400)
[2018-02-21] MEDS: DICYCLOMINE 10 MG CAP PO PRN (05:06)
[2018-02-21 09:05] VITALS: BP 152/80
[2018-02-21] MEDS ORDERED: predniSONE 20 MG TAB PO SCH (09:15)
--- NOTE | 2018-02-21 09:42 | PDHOMEO2F ---
Home Oxygen Face to Face Home Orders: I certify that a physician or a nurse practitioner or physician's warehouse administrative assistant has had a [id number] encounter with this patient on the date of this order due to the diagnosis listed, which relates to the primary reason the patient requires home oxygen. Alternative treatments have been tried, or considered, and deemed ineffective. It is anticipated that supplemental oxygen will result in improvement with treatment. Home oxygen qualifying diagnosis: Lung mets, interstitial lung disease SpO2 on room air (%): 84 Frequency of home oxygen needed: continuous Home oxygen liters per minute: 4L Home oxygen delivery device: nasal cannula Concentrator: Yes E-tanks for mobility and back up: Yes If ordering portable O2, is the patient mobile in the home?: Yes I certify that, based on these findings, the home oxygen is medically necessary for this patient for the following length of time. Length of time home oxygen needed: 99 years
--- NOTE | 2018-02-21 09:44 | PDIAF ---
- Diagnosis Diagnosis: metastatic GI malignancy, respiratory failure Code Status: Do Not Resuscitate - Medication Management Additional Medication Instructions: HOME CYCLIC TPN Discharge Medications: electronically signed and located in the Home Medication List. PICC Care - Routine: Yes - Orders Services needed: Home Care, Registered Nurse, Physical Therapy, Occupational Therapy Home Care Face to Face: I certify that this patient was under my care and that I had the required [id number] encounter meeting the encounter requirements on the discharge day. My findings support the fact that the patient is homebound as defined in Home Care Face to Face Continued: [facility] Chapter 7 Medicare Benefits Manual 30.1.1 , The condition of the patient is such that there exists a normal inability to leave home and consequently, leaving home would require a considerable and taxing effort. Isolation Type: Droplet Isolation Diet Recommendation: no restrictions on diet Additional Instructions: Taper prednisone by 10mg weekly (cut 20mg tabs in half to get 10 mg) Recheck TSH in 6 weeks - Labs/Radiology CBC w/diff Date: 02/23/18 CMP Date: 02/23/18 Other Lab Name, Date and Time: MG, PHOS, TRIGLYCERIDES 02/23/18 - Follow Up Care Current Providers and Referrals: Alphonso Hurt MD [Primary Care Provider] - Eleazar Albright MD [Medical Doctor] - follow up in 2 weeks (See Dr. Albright or Dr. Goel in 1-2 weeks. CXR should be done prior to visit.)
[2018-02-21] MEDS: ENOXAPARIN 40 MG/0.4 ML SYR SC SCH (10:29)
--- NOTE | 2018-02-21 11:59 | ASMTLACE ---
LACE Length of stay for Answers: 7-13 days current admission Acuity / Level of Answers: Yes Care: Did the patient have an inpatient admission? Comorbidities - select Answers: Any tumor (including all that apply lymphoma or leukemia) # of Emergency department Answers: 0 visits in the last 6 months Score: 10 Date Signed: 02/21/2018 11:58 AM Electronically Signed By:Alisa López RN
--- NOTE | 2018-02-21 12:11 | SOAPPROG ---
SOAP Progress Note Assessment/Plan: E&M for metastatic adenocarcinoma * Metastatic adenocarcinoma, likely GI source; HER2 positive: She is day 27; cycle3 of FOLFOX and Herceptin. She has had a tumor marker response but difficult time tolerating the treatment. Dose adjustments or treatment changes will need to be made at the next treatment. * Acute hypoxemic respiratory failure: CTA appears to be pneumonitis and lymphangitic spread (which was known). Unclear if due to viral, drug such as Herceptin, or something else. She is currently on steroids with improvement and changed to PO. * Malnutrition and failure to thrive: She is trying to slowly advance her diet with bland's. Too early to tell if she has entirely resolved. Will continue TPN. * Disposition: There are no onc contra-indications to going home Subjective: Slowly feeling better and would like to go home. Starting to eat small amounts with diarrhea or n/v. Objective: Vital Signs Temp Pulse Resp BP Pulse Ox 37.1 C 78 16 152/80 H 94 02/21/18 09:04 02/21/18 09:04 02/21/18 09:04 02/21/18 09:04 02/21/18 09:04 Laboratory Results 02/21/18 04:50 02/21/18 04:50 02/20/18 02/21/18 02/22/18 05:59 05:59 05:59 Intake Total 1000 250 Output Total 704 700 Balance 296 -450 PT 15.7 SEC (12.0-15.0) H 02/19/18 09:20 INR 1.23 (0.83-1.16) H 02/19/18 09:20 Physical Exam - Physical Exam General Appearance: no apparent distress, thin Respiratory: lungs clear Cardiac/Chest: regular rate, rhythm Abdomen: non-tender, soft ICD10 Worksheet Patient Problems: Problems Problem Status Onset Adenocarcinoma Acute Neutropenia Acute Neutropenia Acute Thrombocytopenia Acute Thrombocytopenia Acute
--- NOTE | 2018-02-21 17:58 | GDS ---
DISCHARGE DIAGNOSES: 1. Acute respiratory failure. 2. Pneumonitis likely due to chemotherapy agent, Herceptin. 3. 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 4. Severe mucositis with dehydration and electrolyte depletion. 5. Severe protein-calorie malnutrition. 6. Pancytopenia due to chemotherapy. 7. Chemotherapy-induced colitis. 8. History of thyroid and breast cancer. HISTORY: This is a 72-year-old female with a known history of metastatic cancer, probable GI primary , with mets to the lung and the liver. She presented to the hospital with severe dehydration and fail ing outpatient therapy. She was [facility] to maintain hydra tion and decision was made to initiate TPN. A few days into her hospitalization, she developed worse stefan acute respiratory failure requiring transfer to the ICU and she had a prolonged course with extr aordinarily high oxygen requirement with progression of bilateral pulmonary infiltrates. Pulmonary M edicine was consulted and she was diagnosed with pneumonitis. Etiology at this point, is felt to be likely a reaction to her chemotherapy drug, Herceptin. She was treated with high-dose IV Solu-Medrol and has improved. Repeat imaging shows her pulmonary infiltrates have dramatically improved. CT an giogram was negative for PE. At the time of discharge she is down to 3-4 L of oxygen. We will disch arge on oral steroids with close outpatient followup with Pulmonary Medicine. TPN is continued at [facility]. DISCHARGE MEDICATIONS: 1. Please see computerized record for full detailed list. New medications: Prednisone 60 mg p.o. da jennifer with taper by 10 mg every week. 2. TPN cyclic every evening. 3. Synthroid increased to 100 mcg p.o. daily for TSH greater than 20. ADDITIONAL DISCHARGE INSTRUCTIONS: 1. Follow up with Dr. Albright or Dr. Goel in 1-2 weeks with a chest x-ray to be done prior to the vis it. 2. Recheck TSH in 6 weeks. 3. Follow up at [facility]. Greater than 30 minutes' time spent arranging this discharge. Patient seen and examined by me on day of discharge. /[id number]/MODL
--- NOTE | 2018-02-22 09:30 | ASDISCHSUM ---
Discharge Information Plan Status:IV ABX/Infusion Medically Cleared to Leave:02/20/2018 Discharge Date:02/21/2018 02:44 PM CM D/C Disposition:Home Health Service ADT D/C Disposition:Home Health Service Projected Discharge Date:02/16/2018 11:00 AM Transportation at D/C: Discharge Delay Reason: Follow-Up Date:02/16/2018 11:00 AM Discharge Slot: Final Diagnosis: Placement Information Referral Type:Home Infusion Referral ID:[id number] Provider Name:[facility] Address 1:[address] Address 2: City:[place] Selection Factors: State:[place] Referral Type:*Home Health Care Services Referral ID:[id number] Provider Name:[facility] Address 1:[address] Address 2: City:[place] Selection Factors: State:[place] Referral Type:*Hospice Referral ID:[id number] Provider Name: Address 1: Phone Number: Address 2: Fax Number: City: Selection Factors: State: Referral Type:Palliative Care Referral ID:[id number] Provider Name:[facility] Address 1:[address] Address 2: City:[place] Selection Factors: State:[place] Patient Contact Information Contact Name:DEWEY Relationship: Address:[address] [place] [address] City:[place] Alternate Phone: State/Zip Code:[place] [address] Email: Financial Information Financial Class:Medicare Primary Plan Desc:MEDICARE INPATIENT Primary Plan Number:[id number] Secondary Plan Desc:[employer] Secondary Plan Number:[id number] Assessment Information LACE JANE Length of stay for Answers: 7-13 days current admission Acuity / Level of Answers: Yes Care: Did the patient have an inpatient admission? Comorbidities - select Answers: Any tumor (including all that apply lymphoma or leukemia) # of Emergency department Answers: 0 visits in the last 6 months Score: 10 Date Signed: 02/21/2018 11:58 AM Electronically Signed By:Alisa López RN [facility] CM Progress Note CM Note CM Note Notes: Pt admitted for malnutrition, diarrhea and pain in the setting of metastatic adenocarcinoma and neutropenia. Pt lives with [place]. Pt was connected with [facility] to begin TPN at home when she was admitted. TPN started inpatient today. Spoke with rep from [facility] who stated they cannot start home TPN on a Monday due to lack of staffing over the weekend, but can start Monday through . Referrals sent to [facility] and [facility] for home RN and they are able to take her. CM to follow. D/C Plan: Home with Hilario ACOSTA and CESAR RN Date Signed: 02/08/2018 04:52 PM Electronically Signed By:Parris Troncoso [facility] CM Progress Note CM Note CM Note Notes: Pt lives at home with and has two children nearby who are helpful. Pt already referred to [facility] and [facility] for TPN infusion through port. PT and OT ordered today to evaluated for therapy needs. [facility] not able to begin TPN over the weekend, so earliest discharge from this perspective is Monday. Pt's electrolytes still very unstable. CM to follow. D/C Plan: [facility] RN and [facility] TPN infusion, possible PT/OT Date Signed: 02/09/2018 02:30 PM Electronically Signed By:Parris Troncoso [facility] CM Progress Note CM Note CM Note Notes: Hospice referrals were sent out yesterday. Palliative care and [facility] met with pt and her this morning and they decided they weren't ready for either palliative or hospice care at this time. Pt will remain with her original d/c plan of [facility] for TPN and [facility] for RN/PT/OT. CM will continue to follow. D/C plan: [facility]/TPN and [facility] RN/PT/OT Date Signed: 02/12/2018 02:42 PM Electronically Signed By:NIRU Gandara [facility] SUNITHA Progress Note CM Note CM Note Notes: Pt in ICU briefly for increased O2 needs and diuresis. Pt transferred back to oncology this afternoon. PT eval today continuing to recommend home care. Pt and family not yet ready for Pall or hospice care. D/C Plan: Home with [facility] and [facility] TPN infusion. Date Signed: 02/14/2018 04:35 PM Electronically Signed By:Parris Troncoso [facility] CM Progress Note CM Note CM Note Notes: Pt in ICU briefly yesterday for increased O2 needs and diuresis. Pt transferred back to med surg status yesterday. Pt now has additional diagnosis of rhinovirus/pneumonitis. Therapies continuing to recommend home care. Pt now open to palliative care support after meeting with engineering professor today. Updated referral sent to [facility] for a palliative consult with pt, son and . [facility] to reach out to pt's son to schedule. CM to follow. D/C Plan: Home with [facility] and [facility] TPN infusion. Date Signed: 02/15/2018 02:44 PM Electronically Signed By:Parris Troncoso [facility] CM Progress Note CM Note CM Note Notes: Patient plan of care reviewed in am rounds. Patient will increasing oxygen needs and poor prognosis. She is reluctant to return to ICU for Bipap support. [facility] call to patient's son to report delay of discussion at this point in time. At this time the plan of care is unclear. CM to follow for needs, It is the patient's husbands desire she might return home with TPN and HHC from [facility] and [facility]. Plan: TBD Date Signed: 02/16/2018 04:39 PM Electronically Signed By:Alisa López RN [facility] CM Progress Note CM Note CM Note Notes: Patient plan of care reviewed in rounds. She is slowly improving an oxygen needs are decreasing. She still requires TPN for nutritional support. Slow taper of steroids. Plan: Home with Home infusion and HHC when medically cleared for discharge. Date Signed: 02/20/2018 12:13 PM Electronically Signed By:Alisa López RN Intervention Information Intervention Type:*IM-Signed Date of Service:02/21/2018 12:08 PM Patient Type:Inpatient Staff Member:Raina Jain Hours: Discipline: Severity: Comment:
== END 2018-02-21 14:44 | disposition home health service (06) | DRG 640 ==
LOC: F1N 13:39 → F2N 02-13 16:24 → F1N 02-15 17:36
PROVIDERS: ADMIT Internal Medicine; ATTEND Internal Medicine
PROC: 3E0436Z Introduction of Nutritional Substance into Central Vein, Percutaneous Approach (ICD-10-PCS; principal; 2018-02-08)
PROC: 5A09357 Assistance with Respiratory Ventilation, Less than 24 Consecutive Hours, Continuous Positive Airway Pressure (ICD-10-PCS; 2018-02-13)
PROC: 30233N1 Transfusion of Nonautologous Red Blood Cells into Peripheral Vein, Percutaneous Approach (ICD-10-PCS; 2018-02-16)
DX: E86.0 Dehydration (principal); E87.6 Hypokalemia; E87.1 Hypo-osmolality and hyponatremia; E83.42 Hypomagnesemia; E43 Unspecified severe protein-calorie malnutrition; K52.1 Toxic gastroenteritis and colitis; J70.2 Acute drug-induced interstitial lung disorders; T45.1X5A Adverse effect of antineoplastic and immunosuppressive drugs, initial encounter; J96.01 Acute respiratory failure with hypoxia; K12.31 Oral mucositis (ulcerative) due to antineoplastic therapy; K11.21 Acute sialoadenitis; A41.9 Sepsis, unspecified organism; D61.810 Antineoplastic chemotherapy induced pancytopenia; K56.0 Paralytic ileus; C78.01 Secondary malignant neoplasm of right lung; C78.02 Secondary malignant neoplasm of left lung; C78.7 Secondary malignant neoplasm of liver and intrahepatic bile duct; C77.1 Secondary and unspecified malignant neoplasm of intrathoracic lymph nodes; C26.9 Malignant neoplasm of ill-defined sites within the digestive system; Z85.3 Personal history of malignant neoplasm of breast; Z90.13 Acquired absence of bilateral breasts and nipples; Z85.850 Personal history of malignant neoplasm of thyroid; E89.0 Postprocedural hypothyroidism
CPT/HCPCS: 84480-90; 97116-GP; 97140-GP; 97162-GP; 97166-GO; 97530-GP; 97535-GO; G8978-GP-CK; G8979-GP-CI; G8980-GP-CI; G8987-GO-CL; G8988-GO-CI; J0295; J1650; J1815; J1940; J2060; J2270; J2405; J2550; J2920; J2930; J3475; J3480; J7512; P9016; P9047; Q5101; Q9967

== ENCOUNTER 2018-02-22 03:39 | Inpatient (IN) | payer OTHER ==
[2018-02-22] MEDS ORDERED: PANTOPRAZOLE SODIUM 40 MG VIAL IVP ONE (03:41)
[2018-02-22] MEDS ORDERED: NS 1,000 ML IV ONE ×3 (03:41→19:16)
--- NOTE | 2018-02-22 03:45 | EDPHY ---
H & P Time Seen by Provider: 02/22/18 03:41 HPI/ROS: HPI CHIEF COMPLAINT: GI bleed. HISTORY OF PRESENT ILLNESS: 72-year-old female, arrives from home by EMS for blood in her stool. Called 911 tonight due to dark tarry stools with blood present. No vomiting. Denies any abdominal pain. She was just recently discharged from the hospital yesterday. She arrives to the emergency room hemodynamically stable no acute distress. It is noted she has dark tarry stool blood on the bottom of her feet. Patient denies any abdominal pain chest pain or shortness of breath. She has significant medical history of metastatic adenocarcinoma GI primary, acute respiratory failure, pneumonitis, colitis Past Medical History: Metastatic adenocarcinoma, acute respiratory failure, pneumonitis recently got steroids. Past Surgical History: No recent surgery Social History: Lives locally. Was just released from the hospital. Family History: Noncontributory ROS REVIEW OF SYSTEMS: 10 Systems were reviewed and negative with the exception of the elements mentioned in the history of present illness. Exam Constitutional elderly, frail, nontoxic triage nursing summary reviewed, vital signs reviewed, awake/alert. Eyes and sclera, EOMI, PERRLA. Pale conjunctivae on exam. HENT normal inspection, atraumatic, moist mucus membranes, no epistaxis, neck supple/ no meningismus, no raccoon eyes. Respiratory clear to auscultation bilaterally, normal breath sounds, no respiratory distress, no wheezing. Cardiovascular rate normal, regular rhythm, no murmur, no edema, distal pulses normal. Gastrointestinal abdomen is soft nontender on exam. No guarding or peritoneal signs soft, non-tender, no rebound, no guarding, normal bowel sounds, no distension, no pulsatile mass. Genitourinary no CVA tenderness. Musculoskeletal no midline vertebral tenderness, full range of motion, no calf swelling, no tenderness of extremities, no meningismus, good pulses, neurovascularly intact. Skin pink, warm, & dry, no rash, skin atraumatic. Neurologic awake, alert and oriented x 3, AAOx3, moves all 4 extremities equally, motor intact, sensory intact, CN II-XII intact, normal cerebellar, normal vision, normal speech. Psychiatric normal mood/affect. Heme/Lymph/Immune no lymphadenopathy. Differential Diagnosis: Includes but is not limited to in a particular order acute GI bleed, peptic ulcer disease, esophagitis, gastritis, stress ulcer, upper GI bleed, lower GI bleed Medical Decision Making: Plan for this patient IV establishment with type and screen, gentle IV fluids, IV Protonix, check CBC. Monitor closely. Admit to hospital. Re-evaluation: 0432: Patient here in emergency room black tarry stool. Hemoglobin 7.2. Down from 9. Blood pressure soft in the 90s. I will type and screen her. Plan for transfusion of 2 units. Protonix. Plan for admission. Also consult GI. Patient's blood pressure much improved 102/87. Heart rate 91. Patient consented for blood and agrees. Plan for 2 units transfusion. Plan for admission. GI consult Dr. Herrera. Hospitalist consult to Dr. Reed. 4:45 a.m.. 2nd IV will be placed. She does have a right chest port for TPN. Patient ordered 2 units of blood. Patient go to the ICU for close monitoring. Patient is a known initial lactic acid was 4.4. This is elevated, however she is not septic. The lactic acid is elevated due to blood loss and hypertension. Patient received 2 L of fluid. Additionally 2 units of blood as been ordered. Blood pressure be closely monitored. Repeat lactic pending. Source: Patient, EMS - Medical/Surgical History Hx Asthma: No Hx Chronic Respiratory Disease: No Hx Diabetes: Yes Hx Cardiac Disease: No Hx Renal Disease: No Hx Cirrhosis: No Hx Alcoholism: No Hx HIV/AIDS: No Hx Splenectomy or Spleen Trauma: No Other PMH: breast CA 2009, bilat mastectomy with implants, left side sentinal node bx, left arm restriction, OLYA, cancer of unknown primary with mets to liver , lung, LN, severe mold allergy, DM, hypothyroid, osteopenia - Social History Smoking Status: Never smoked Constitutional: Initial Vital Signs Temperature (C) 36.8 C 02/22/18 03:42 Heart Rate 98 02/22/18 03:42 Respiratory Rate 20 02/22/18 03:42 Blood Pressure 92/57 L 02/22/18 03:42 O2 Sat (%) 100 02/22/18 03:42 O2 Delivery Mode Nasal Cannula O2 (L/minute) 4 Allergies/Adverse Reactions: morphine Allergy (Mild, Verified 02/22/18 06:06) Nausea clarithromycin Allergy (Unknown, Verified 02/22/18 03:41) THROAT CLOSURE/HIVES MOLD Allergy (Severe, Uncoded 02/22/18 03:41) Anaphylaxis Home Medications: Medication Instructions Recorded Dicyclomine [Bentyl 10 MG (*)] 10 mg PO QID PRN 02/07/18 Granisetron HCl 2 mg PO BID PRN 02/07/18 LORazepam [Ativan (*)] 0.125 mg PO Q4 PRN 02/07/18 Liothyronine Sodium [Cytomel 5 mcg 10 mcg PO DAILY@0430 02/07/18 (*)] OLANZapine [OLANZapine (*)] 5 mg PO HS PRN 02/07/18 ZOLMitriptan [Zomig 2.5MG (*)] 2.5 mg PO Q2H PRN MDD max 10mg in 02/07/18 24 hours Mbx Soln;Maalox/Diphen/Lido 5 ml PO PRN PRN #1 bottle 02/21/18 [Maalox/Diphenhydramine/Lido] TPN W/ Famotidine 1 ea IV DAILY21 #30 bag 02/21/18 [Hyperalimentation] Diphenoxylate HCl/Atrop Sulf 1 tab PO QID PRN 02/22/18 [Lomotil Tab (*)] Levothyroxine [Synthroid 100 mcg 100 mcg PO DAILY06 02/22/18 (*)] Acetaminophen [Tylenol 325mg (*)] 650 mg PO Q4HRS PRN tab 02/24/18 predniSONE 10 mg PO DAILY #30 tab 02/24/18 Famotidine [Heartburn Prevention] 20 mg PO HS #30 tablet 02/25/18 Medical Decision Making - Data Points Laboratory Results: Laboratory Results 02/22/18 04:20 02/22/18 04:20 Medications Given: Acetaminophen (Tylenol) 650 mg PO Q4HRS PRN PRN Reason: Pain, Mild/Fever, Can Take PO Stop: 08/21/18 05:49 Last Admin: 02/26/18 08:10 Dose: 650 mg Ampicillin Sodium/Sulbactam (Sodium 3 gm/ Sodium Chloride) 100 mls @ 200 mls/ hr IV 0400,1000,1600,2200 TEMO PRN Reason: Protocol Stop: 03/27/18 15:47 Last Admin: 02/26/18 16:14 Dose: 100 mls Insulin Human Lispro (Humalog Lispro) 0 unit SC TIDMEAL TEMO PRN Reason: Protocol Stop: 08/24/18 07:59 Last Admin: 02/26/18 18:19 Dose: Not Given Levothyroxine Sodium (Synthroid) 100 mcg PO 0400 [facility] Stop: 08/21/18 10:42 Last Admin: 02/26/18 04:22 Dose: 100 mcg Lidocaine/Diphenhydramine/Alumin/Mg (Maalox/Diphenhydramine/Lido) 5 ml PO PRN PRN PRN Reason: Mucositis, Mouth Pain Stop: 08/22/18 08:41 Last Admin: 02/25/18 08:25 Dose: 5 ml Liothyronine Sodium (Cytomel) 10 mcg PO DAILY@0430 [facility] Stop: 08/21/18 10:44 Last Admin: 02/26/18 04:22 Dose: 10 mcg Miscellaneous Medication (Tpn W/ Famotidine) 1 ea IV DAILY21 TEMO PRN Reason: Protocol Stop: 08/21/18 20:59 Last Admin: 02/25/18 20:59 Dose: 1,300 ml Pantoprazole Sodium (Protonix) 40 mg PO DAILY [facility] Stop: 08/21/18 12:14 Last Admin: 02/26/18 08:11 Dose: 40 mg Prednisone (Prednisone) 50 mg PO DAILY [facility] Stop: 08/21/18 10:44 Last Admin: 02/26/18 08:11 Dose: 50 mg Sodium Chloride ([place]ola) 1 spray EACHNARE Q4 PRN PRN Reason: Dry Nose Stop: 08/24/18 12:38 Last Admin: 02/25/18 12:55 Dose: 1 spray Discontinued Medications Sodium Chloride (Ns) 1,000 mls @ 0 mls/hr IV EDNOW ONE; Wide Open PRN Reason: Protocol Stop: 02/22/18 03:42 Last Admin: 02/22/18 04:25 Dose: 1,000 mls Sodium Chloride (Ns) 1,000 mls @ 0 mls/hr IV ONCE ONE PRN Reason: Wide Open Stop: 02/22/18 04:45 Last Admin: 02/22/18 05:06 Dose: 1,000 mls Sodium Chloride (Ns) 1,000 mls @ 75 mls/hr IV CONT [facility] Stop: 05/21/19 05:59 Last Admin: 02/24/18 05:23 Dose: 1,000 mls Sodium Chloride (Ns) 1,000 mls @ 3,000 mls/hr IV ONCE ONE Stop: 02/22/18 19:35 Last Admin: 02/22/18 20:23 Dose: 1,000 mls Calcium Gluconate (Calcium Gluconate 1 Gm (Premix)) 50 mls @ 100 mls/hr IV ONCE ONE Stop: 02/24/18 20:24 Last Admin: 02/24/18 20:30 Dose: 50 mls Ampicillin Sodium/Sulbactam (Sodium 3 gm/ Sodium Chloride) 100 mls @ 200 mls/ hr IV Q6HRS [facility] PRN Reason: Protocol Stop: 03/27/18 15:47 Last Admin: 02/25/18 16:28 Dose: Not Given Pantoprazole Sodium (Protonix) 80 mg IVP EDNOW ONE Stop: 02/22/18 03:42 Last Admin: 02/22/18 04:26 Dose: 80 mg Prednisone (Prednisone) 60 mg PO DAILY [facility] Stop: 08/21/18 10:44 Last Admin: 02/24/18 08:47 Dose: 60 mg Departure - Departure Disposition: [facility] Inpatient Acute Clinical Impression: GI bleed Qualifiers: GI bleed type/associated pathology: melena Qualified Code(s): K92.1 - Melena Condition: Critical
[2018-02-22 04:30] LABS: PLATELET COUNT 186 10^3/uL (150-400)
[2018-02-22 05:10] LABS: INR 1.26 (0.83-1.16)
[2018-02-22] MEDS ORDERED: ONDANSETRON DISINTEGRATING 4 MG TAB PO PRN (05:50)
[2018-02-22] MEDS ORDERED: ONDANSETRON 4 MG/2 ML VIAL IVP PRN ×3 (05:50→11:20)
[2018-02-22] MEDS ORDERED: NS 1,000 ML IV SCH (06:00)
--- NOTE | 2018-02-22 07:01 | GHP ---
DATE OF ADMISSION: 02/22/2018 SOURCE: The patient provides history, is a fair historian. at bedside and supplements details. EMR was reviewed, and the patient's case discussed with ED provider. The patient was just discharged from the hospital yesterday afternoon at 3 p.m. CHIEF COMPLAINT: Rectal bleeding. HISTORY OF PRESENT ILLNESS: This is a very pleasant, 72-year-old female with a past medical history significant for a remote history of breast cancer, status post mastectomy and implants, thyroid cancer, status post total thyroidectomy and more recently, diagnosed with adenocarcinoma, suspected GI source with mets to lung and liver. The patient was just recently hospitalized on 02/07/2018, and discharged 02/21/2018, when she was admitted for nausea, vomiting, and subsequently developed acute hypoxic respiratory failure secondary to pneumonitis due to her Herceptin treatment. The patient had subsequently been treated with steroids and had improvement in her respiratory status. She had been discharged home. She was feeling fatigued, but had improvement in her respiratory status at home. She went to bed at approximately 2 a.m., suddenly woke up and tried to get to the bathroom. However, she is significantly deconditioned, weakened, and was not able to mobilize quick enough with use of her walker to the bathroom. She subsequently had bloody melenic stools all over the floor per the . The patient sat down in a chair, but was too fatigued to get up or help her clean. She sat in this chair for many minutes and was not able to ambulate back to the bed, and so brought the patient into the hospital via EMR. The patient reports that she had been experiencing persistent shortness of breath. She was on 4 L of oxygen continuously. Her did increase the patient's oxygen to 5 L after this episode without significant improvement. She was unable to stand. She felt weak and dizzy. She denied any chest pain, palpitations. She denies any syncopal episode. REVIEW OF SYSTEMS: GENERAL: Negative for fevers and chills. The patient reports that she just felt cold. No sweats. SKIN: The patient appeared pale. Per , no new rashes or wounds reported. ENT: The patient complained of dry mouth. No nasal discharge. EYES: No acute changes in vision, ocular pain. CV: No chest pain or palpitations. RESPIRATORY: Positive for dyspnea. No cough. ABDOMEN: Negative for nausea, vomiting. Positive for melenic stools with surrounding bright red blood. The reports that these were dark and tarry. No abdominal distention reported. : The patient denies any dysuria or hematuria. 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 NEURO: The patient denies any headache. No numbness, tingling. The remainder of 10 systems reviewed and negative, except as noted above. ALLERGIES: Clarithromycin, mold, morphine. HOME MEDICATIONS: As per EMR. Prednisone 60 mg p.o. daily, Zomig 2.5 mg p.o. q.2 hours p.r.n., TPN , olanzapine 5 mg p.o. at bedtime p.r.n., Magic mouthwash 5 mL p.o. p.r.n., cytomel 10 mcg p.o. daily, lorazepam 0.125 mg p.o. q.4 hours p.r.n., Bentyl 10 mg p.o. four times daily p.r.n., granisetron 2 mg p.o. twice daily p.r.n. PAST MEDICAL HISTORY: Significant for: 1. Recurrent metastatic adenocarcinoma, suspected GI source with mets to liver and lung. 2. History of breast cancer, status post mastectomy and implants. 3. Thyroid cancer, status post total thyroidectomy, on dual supplementation. 4. History of colitis. 5. OLYA. 6. Hypothyroidism. 7. Osteoporosis. 8. Severe protein-calorie malnutrition, on TPN. 9. Previous history of diabetes 2. PAST SURGICAL HISTORY: PowerPort on the right, bilateral mastectomy, as above, multiple orthopedic surgeries including shoulder, knees. FAMILY HISTORY: Father with lymphoma. SOCIAL HISTORY: The patient is , lives with her . She does not smoke, drink, or utilize any illicit drugs. She requires 4 L of oxygen continuously and requires the use of a walker. PHYSICAL EXAMINATION: VITAL SIGNS: Upon arrival to the emergency department, blood pressure 92/57, heart rate 98, respiratory rate 20, O2 saturation 100% on 4 L by nasal cannula, temperature 36.8. Current vitals available, blood pressure 111/63, heart rate 89, respiratory rate 18, O2 saturation is 99% on 4 L by nasal cannula, bedside heart rate was 94-95. GENERAL: No acute distress. Pleasant, chronically ill-appearing, thin, frail, cachectic, elderly lady, who is lying quietly in bed, awake. She is a pleasant and interactive. is at bedside. HEAD: Normocephalic, atraumatic. EYES: Extraocular muscles are intact. Pupils equal, round, and reactive to light bilaterally and symmetric. No scleral icterus or conjunctival injection. ENT: Mucous membranes appear quite dry. No oropharyngeal erythema or exudates. NECK: Supple. Trachea midline. She has an inferior lower neck scar present, well-healed. CV: Slightly tachycardic with regular rhythm. No murmurs, rubs, or gallops appreciated. Her port is on the right. RESPIRATORY: Lungs are mostly clear to auscultation bilaterally. No wheezes or rhonchi. The patient does have some rales bibasilarly. GI: Positive bowel sounds. Soft and nontender to palpation. No rebound, guarding, or masses appreciated. Nondistended abdomen. : No suprapubic tenderness to palpation. No Nichole catheter in place. MUSCULOSKELETAL: Generalized weakness, significant deconditioning. The patient is able to move her upper and lower extremities while lying in bed. She is not able to sit up independently. NEURO: Grossly nonfocal. No facial drooping. Moves all extremities, as noted above. PSYCHIATRIC: The patient's thought process, content and questions appropriate. The patient with some memory deficits, but she is otherwise pleasant and cooperative. LABORATORY STUDIES: WBC 18.77, H and H 7.2 and 21.1, MCV 87.9, platelet count is 186, neutrophil percent is 94.8. PT 16.0, INR is 1.26, PTT is 22.4. VBG: Lactic acid 4.4, repeat is 3.3. Sodium 137, potassium 4.2, chloride 100, CO2 is 27, anion gap 10, BUN 55, creatinine 0.6, GFR greater than 60, glucose is 86 , calcium is 7.6, total bilirubin 0.4. ALT is 92, AST is 41, alkaline phosphatase is 111, total protein 4.1, albumin is 2.2, lipase is 176. ASSESSMENT/PLAN: A pleasant 72-year-old female with a history of metastatic adenocarcinoma to the lung, liver, who presents to the emergency department today with new onset rectal bleeding. 1. Gastrointestinal bleed. reports a melenic component, in addition to a rectal/lower gastrointestinal source with bright red blood, as well as melenic stools. She does have a history of gastroesophageal reflux disease and is on H2 blockers regularly. She has not been on any nonsteroidal anti- inflammatory drug therapy, not on aspirin or anticoagulation. Gastroenterology consulted from the emergency department and will plan to see the patient this morning. We will keep the patient n.p.o. pending their recommendations. 2. Lactic acidosis, likely related to the patient's acute gastrointestinal bleed. Continuing with intravenous fluids and transfusing. We will continue serial lactates until less than 2. 3. History of recent pneumonitis, slowly improving. Continue steroids. Monitor pulse oximetry. Lung sounds improving. 4. Metastatic adenocarcinoma with probable gastrointestinal primary with metastases to lung and liver. The patient is on chemotherapy with her recent pneumonitis secondary to a reaction to Herceptin. The patient's primary oncologist is Dr. Pascual. We will notify of the patient's admission. 5. History of chemotherapy-induced colitis in the setting of current gastrointestinal bleeding a consideration. She is not having any current abdominal pain. 6. Severe protein-calorie malnutrition. Continue the patient's TPN. She currently has a bag due to run until 8 a.m. 7. Pancytopenia. The patient's platelet count has improved, and will be receiving transfusion. 8. History of breast cancer and thyroid cancer, in remission. 9. Fluid, electrolyte and nutrition. Intravenous fluids, TPN. Electrolytes adequate at this time and do not require replacement. holding anticoagulation in the setting of acute gastrointestinal bleeding. COR STATUS: DNR, DNI. DISPOSITION: The patient admitted to inpatient status in ICU for close monitoring given the patient's tachycardia, hypotension. /[id number]/MODL MTDD
--- NOTE | 2018-02-22 09:52 | SOAPPROG ---
SOAP Progress Note Assessment/Plan: Assessment:Plan: see full dictated consult to follow 72 y/o female with metastatic adeno prob GI primary with melena post hemorrheic anemia, increased BUN/Cr c/w UGI source Had egd and colon in December with Dr. Moffett that was unrevealing for EGD at 10:30 with anesthesia Angel Herrera MD [phone] 02/22/18 09:50 Objective: Vital Signs Temp Pulse Resp BP Pulse Ox 36.6 C 84 22 H 100/59 L 100 02/22/18 08:00 02/22/18 08:00 02/22/18 08:00 02/22/18 08:00 02/22/18 08:00 02/21/18 02/22/18 02/23/18 05:59 05:59 05:59 Intake Total 2500 Output Total 240 Balance 2260 PT 16.0 SEC (12.0-15.0) H 02/22/18 04:20 INR 1.26 (0.83-1.16) H 02/22/18 04:20 ICD10 Worksheet Patient Problems: Problems Problem Status Onset GI bleed Acute Adenocarcinoma Acute Neutropenia Acute Neutropenia Acute Thrombocytopenia Acute Thrombocytopenia Acute
[2018-02-22] MEDS ORDERED: NALOXONE HCL 0.4 MG/ML INJ IVP PRN ×2 (10:08→11:20)
[2018-02-22] MEDS ORDERED: LABETALOL HCL 5 MG/ML 20 ML MDV IVP PRN (10:08)
[2018-02-22] MEDS ORDERED: fentaNYL 100 MCG/2 ML INJ IVP PRN ×2 (10:08→11:20)
[2018-02-22] MEDS ORDERED: PROMETHAZINE HCL 25 MG/ML INJ IVP PRN (10:08)
[2018-02-22] MEDS ORDERED: DICYCLOMINE 10 MG CAP PO PRN (10:14)
[2018-02-22] MEDS ORDERED: OLANZapine 5 MG TAB PO PRN (10:14)
[2018-02-22] MEDS ORDERED: LORazepam 0.5 MG TAB PO PRN (10:14)
[2018-02-22] MEDS ORDERED: DIPHENOXYLATE/ATROPINE LOMOTIL 1 TAB PO PRN (10:14)
[2018-02-22] MEDS ORDERED: FAMOTIDINE 20 MG TAB PO PRN (10:14)
--- NOTE | 2018-02-22 10:19 | HOSPPROG ---
Hospitalist Progress Note Assessment/Plan: #Acute GIB: EGD with some friability in jejunum. Protonix. H/H stable after 2 units. If rebleeds, needs tagged-RBC or angiogram if brisk. Serial H/H. #Lactic acidosis: from hypovolemic. Resolved with IVFs #Metastatic adenocarcinoma cancer: suspected GI-origin: FOLFOX, Herceptin #Chronic hypoxemic resp failure: recent Rhino/Enterovirus infection, +Herceptin- related pneumonitis. Resume home pred #Hypotension: improved with IVFs, blood #Compensated diastolic HF: monitor closely with IVF resuscitation #Hypothyroidism: home meds #OLYA #H/o chemo-related colitis #h/o breast cancer #Severe protein caloric malnutrition: TPN #DVT ppx: SCDS #Disp: inpatient admission for EGD, serial labs #Goals: DNR Critical care time spent: 35 min bedside with pt, reviewing lab date, D/w Dr. Herrera and Dr. Goel Subjective: "feel weird" Denies CP or SOB Objective: Vital Signs Temp Pulse Resp BP Pulse Ox 36.6 C 84 22 H 100/59 L 100 02/22/18 08:00 02/22/18 08:00 02/22/18 08:00 02/22/18 08:00 02/22/18 08:00 02/21/18 02/22/18 02/23/18 05:59 05:59 05:59 Intake Total 2500 Output Total 240 Balance 2260 PT 16.0 SEC (12.0-15.0) H 02/22/18 04:20 INR 1.26 (0.83-1.16) H 02/22/18 04:20 - Physical Exam Constitutional: chronically ill appearing Eyes: pale conjunctiva Ears, Nose, Mouth, Throat: moist mucous membranes Cardiovascular: tachycardia, edema Respiratory: reduced air movement Gastrointestinal: normoactive bowel sounds Genitourinary: No rose in urethra Skin: warm Musculoskeletal: generalized weakness Neurologic: AAOx3, CN II-XII Intact ICD10 Worksheet Patient Problems: Problems Problem Status Onset GI bleed Acute Adenocarcinoma Acute Neutropenia Acute Neutropenia Acute Thrombocytopenia Acute Thrombocytopenia Acute
[2018-02-22] MEDS ORDERED: PROPOFOL 200 MG/20 ML VIAL ONE (10:37)
--- NOTE | 2018-02-22 11:09 | GIREPORT ---
[facility] - Endoscopy Department Patient Name: Sandrine Chaney Procedure Date: 02/22/2018 10:11 AM Patient Type: Inpatient Attending MD/ ER Physician: Brooklyn Fontaine Procedure: Small bowel enteroscopy Indications: Acute post hemorrhagic anemia, Melena Providers: Perfecto Herrera MD Referring MD: Joey Valladares MD Medicines: Propofol per Anesthesia = IV general with spont respirations Complications: No immediate complications. Estimated blood loss: Minimal. Description of Procedure: After obtaining informed consent, the endoscope was passed under direct vision. Throughout the procedure, the patient's blood pressure, pulse, and oxygen saturations were monitored continuously. The Endoscope was intro duced through the mouth, and advanced to the third part of duodenum. After obtaining informed consent, the endoscope was passed under direct visio n. Throughout the procedure, the patient's blood pressure, pulse, and oxyg en saturations were monitored continuously. The Loaner scope was introduce d through the mouth and advanced to the mid-jejunum. The small bowel enteroscopy was accomplished without difficulty. The patient tolerated the procedure well. Findings: The esophagus was normal. The stomach was normal. There was no evidence of significant pathology in the duodenal bulb, in the first portion of the duodenum, in the second portion of the duodenum an d in the third portion of the duodenum. Scattered mucosal changes characterized by congestion, discoloration, flattening, friability (with contact bleeding) and altered texture were found in the jejunum. Biopsies were taken with a cold forceps for histo logy. Estimated blood loss was minimal. Estimated Blood Loss: Estimated blood loss was minimal. Post Op Diagnosis: - Normal esophagus. - Normal stomach. - Normal duodenal bulb, first portion of the duodenum, second portion o f the duodenum and third portion of the duodenum. - Mucosal changes in the jejunum. Biopsied. This might be the source of a slow GI blood loss which would be c/w with her rising BUN/Cr ratio over last 5 days - BUN was normal on the and has increased since then. Her H B dropped from 10.4 on the to 9.5 on the . Recommendation: - Await pathology results. - Use Protonix (pantoprazole) 40 mg PO daily for 4 weeks. - Check hemoglobin q 8 hours for one day. - If she has rebleeding I would suggest tagged RBC scan or angiogram if more brisk. A LGI bleed is unlikely to cause a BUN/cr ratio increase. - Return patient to ICU for ongoing care. - Thank you for allowing me to help in your patient's care. Do not hesi isbell to call with any questions. Attending Participation: I personally performed the entire procedure. Sharon Grove M.D Perfecto Herrera MD 02/22/2018 11:08:26 AM This report has been signed electronicallyMathew MD Sharon Number of Addenda: 0 Note Initiated On: 02/22/2018 10:11 AM [email or web address]
--- NOTE | 2018-02-22 11:20 | PDANEPAE ---
ANE Past Medical History - Cardiovascular History Hx Hypertension: No Hx Arrhythmias: No Hx Chest Pain: No Hx Coronary Artery / Peripheral Vascular Disease: No Hx CHF / Valvular Disease: No Hx Palpitations: No Cardiovascular History Comment: slight thickening of RCA - Pulmonary History Hx COPD: No Hx Asthma/Reactive Airway Disease: No Hx Recent Upper Respiratory Infection: No Hx Oxygen in Use at Home: No Hx Sleep Apnea: No Sleep Apnea Screening Result - Last Documented: Positive Pulmonary History Comment: lung cancer - Neurologic History Hx Cerebrovascular Accident: No Hx Seizures: No Hx Dementia: No - Endocrine History Hx Diabetes: Yes Endocrine History Comment: pre-diabetes - Renal History Hx Renal Disorders: No - Liver History Hx Hepatic Disorders: No - Neurological & Psychiatric Hx Hx Neurological and Psychiatric Disorders: No - Cancer History Hx Cancer: Yes Cancer History Comment: Breast CA, lung cancer, liver cancer, metatastic adenocarcinoma unknown source - Congenital Disorder History Hx Congenital Disorders: No - GI History Hx Gastrointestinal Disorders: No - Other Health History Other Health History: Chronic inflammatory disease - Chronic Pain History Chronic Pain: No - Surgical History Prior Surgeries: B/L Mastectomy-2009. B/L Knee replacement-2009. B/L reconstructive breast surgery-2009. 2007-R rotator cuff surgery/2012-R L rotator cuff surgery. [id number]. Right leg compound fracture surgery-1965. left leg surgery-1994 ANE Review of Systems Review of Systems: ANE Patient History - Allergies Allergies/Adverse Reactions: morphine Allergy (Mild, Verified 02/22/18 06:06) Nausea clarithromycin Allergy (Unknown, Verified 02/22/18 03:41) THROAT CLOSURE/HIVES MOLD Allergy (Severe, Uncoded 02/22/18 03:41) Anaphylaxis - Home Medications Home Medications: Dicyclomine [Bentyl 10 MG (*)] 10 mg PO QID PRN 02/07/18 [Last Taken Unknown] Famotidine [Pepcid 20 MG (*)] 20 mg PO HS PRN 02/07/18 [Last Taken Unknown] Granisetron HCl 2 mg PO BID PRN 02/07/18 [Last Taken Unknown] LORazepam [Ativan (*)] 0.125 mg PO Q4 PRN 02/07/18 [Last Taken 02/06/18] Liothyronine Sodium [Cytomel 5 mcg (*)] 10 mcg PO DAILY@0430 02/07/18 [Last Taken 02/07/18 07:00] OLANZapine [OLANZapine (*)] 5 mg PO HS PRN 02/07/18 [Last Taken Unknown] ZOLMitriptan [Zomig 2.5MG (*)] 2.5 mg PO Q2H PRN MDD max 10mg in 24 hours [Last Taken Unknown] Diphenoxylate HCl/Atrop Sulf [Lomotil Tab (*)] 1 tab PO QID PRN 02/22/18 [Last Taken Unknown] Levothyroxine [Synthroid 100 mcg (*)] 100 mcg PO DAILY06 02/22/18 [Last Taken Unknown] - NPO status NPO Since - Liquids (Date): 02/21/18 NPO Since - Solids (Date): 02/21/18 - Smoking Hx Smoking Status: Never smoked - Family Anes Hx Family Hx Anesthesia Complications: None ANE Labs/Vital Signs - Labs Result Diagrams: 02/22/18 10:10 02/22/18 04:20 - Vital Signs Blood Pressure: 107/62 Heart Rate: 94 Respiratory Rate: 14 O2 Sat (%): 97 Height: 167 cm Weight: 61.2 kg ANE Physical Exam - Airway Neck exam: decreased ROM Mallampati Score: Class 2 Mouth exam: normal dental/mouth exam - Pulmonary Pulmonary: reduced air movement - Cardiovascular Cardiovascular: regular rate and rhythym - ASA Status ASA Status: III ANE Anesthesia Plan Anesthesia Plan: GA with mask Total IV Anesthesia: Yes Urgent/Emergent Case: Amada sanz completed preop but documented later for safe timely pt care
--- NOTE | 2018-02-22 12:42 | GCON ---
DATE OF CONSULTATION: 02/22/2018 REFERRING PHYSICIAN: Dr. Yo ADDITIONAL REQUESTING PHYSICIAN: Dr. Reed. INDICATION FOR CONSULTATION: Melena, posthemorrhagic anemia, presumed upper GI bleed. HISTORY OF PRESENT ILLNESS: I have been asked by Dr. Yo to see this patient held in consultation for a chief complaint of upper GI bleed. She is a very pleasant, 72-year-old female with a past medical history significant for breast cancer, thyroid cancer, and who now has a metastatic adenocarcinoma, unknown primary. They suspect a GI source. She has mets to her lung and liver. She was hospitalized from February 07 through February, when she had nausea, vomiting, and developed hypoxic respiratory failure secondary to pneumonitis due to Herceptin treatment. She received high- dose steroids and had improvement of her respiratory status. She was discharged home on the , and at 2 a.m. in the morning, she woke up and tried to get to the bathroom, but was not able to get there quick enough with her walker and had bloody melenic stools all over the floor. Her called EMS and she was brought to the hospital. She was noted to have a decreased hemoglobin and hematocrit from her discharge, then was admitted for presumed upper GI bleed. She denies any nausea, vomiting, chest pain, palpitations, fevers, chills, sweats. She does not take any aspirin, Motrin, Advil, ibuprofen or other nonsteroidal anti-inflammatory drugs. She has had no history of GI bleed. She did have an EGD and colonoscopy by my partner in December, which were normal, and are reviewed below. She is now admitted for presumed upper GI bleed with posthemorrhagic anemia. She has received 2 units of blood and is stable in the ICU. I am now here to help and evaluate and treat her presumed upper GI bleed. PAST MEDICAL/SURGICAL HISTORY: Breast cancer, status post mastectomy and implants, thyroid cancer, status post total thyroidectomy. She had a history of colitis, thought related to her chemotherapy. Hypothyroidism, osteoporosis, protein-calorie malnutrition, on TPN, and a history of type 2 diabetes. port placement MEDICATIONS: At home include Cytomel 10 mcg daily, olanzapine 5 mcg p.o. at bedtime p.r.n., Ativan 0.125 mg p.o. q.4 hours p.r.n., granisetron 2 mg p.o. twice daily, Bentyl 10 mg four times daily p.r.n., famotidine 20 mg p.o. at bedtime, Zomig 2.5 mg q.2 p.r.n., prednisone 60 mg daily, TPN, levothyroxine 100 mcg daily, Lomotil p.r.n. In hospital, she is written for Tylenol p.r.n., Bentyl p.r.n., Lomotil p.r.n., Pepcid 20 mg p.o. at bedtime, levothyroxine 100 mcg daily, Cytomel 10 mcg daily , Ativan 0.125 mg p.o. q.4 p.r.n., Narcan p.r.n., olanzapine 5 mg p.o. at bedtime p.r.n., Zofran p.r.n., Protonix 40 mg IV twice daily, prednisone 60 mg daily, Zomig 2.5 mg p.o. q.2 hours p.r.n. She has received 2 units of packed red blood cells. ALLERGIES: Biaxin, black mold, and she does not tolerate morphine well. SOCIAL HISTORY: She does not smoke or drink. She is lives at home with her . She does require 4 L of oxygen continuously. FAMILY HISTORY: No cancers, except for a father with lymphoma. REVIEW OF SYSTEMS: A complete review of systems was performed and negative other than in the HPI. PHYSICAL EXAM: GENERAL: Chronically ill-appearing female, who is frail and thin, who is lying in her ICU bed in no acute distress. Her son, who is a PA, is in the room, as well. VITAL SIGNS: Blood pressure 107/62, pulse is 94, respirations are 14. She is 97% on 4 L. Temperature 36.6. EYES: Anicteric. JASSON, EOMI. MOUTH: No lesions. Moist mucous membranes. NECK: Supple. No JVD. BACK: No spine tenderness. LUNGS: Clear. CARDIAC: S1, S2. Regular rate and rhythm. ABDOMEN: Bowel sounds are normal pitch and frequency. Abdomen is soft and nontender. No hepatosplenomegaly. EXTREMITIES: No cyanosis, clubbing, or edema. NEUROLOGIC: Cranial nerves intact. Nonfocal. SKIN: No stigmata of advanced liver disease. No rashes. LABORATORY DATA: From today, sodium 137, potassium 4.2, chloride 100, bicarb 27 , BUN 55, creatinine 0.6, glucose 386, calcium 7.6, total bilirubin 0.4, AST 91 , ALT 92, alkaline phosphatase 111, albumin 2.2, total protein 4.1, lipase 176. WBC 18.77, hemoglobin 7.2, hematocrit 21.1, platelet count 186. After 2 units of blood transfusion, repeat hemoglobin is 9.9, hematocrit 28.8. Protime 16.0, with an INR of 1.26. Repeat lactic acid is 1.4. Her hemoglobin on February 16 was 10.4; on February 17, 10.7; on February 18, 9.7; on February 19, 10.0; on February 20, 9.8; on the , 9.5. Her BUN on the was normal at 21. On the , it was elevated at 32, on the was 37, on the was 42, on the was 42 and today, it is 55. IMAGING: February 12, 2018, abdominal CT scan performed. Mild adynamic ileus. No evidence of mechanical small-bowel obstruction. Diffuse mild colitis may be sequela of chemotherapy or even manifestation of infectious colitis such as C difficile. Small volume of free fluid. No abscesses. Normal-sized spleen. Partial response to chemotherapy evidenced by decreased size of liver lesion. Cholelithiasis. No evidence of common bile duct stone. The liver lesion previously was 3.4 x 2.7 cm. It is now 2.9 x 2.5 cm. There were gallstones and dense sludge within the gallbladder lumen. Her procedure report as an outpatient from December 18, 2017, EGD and colonoscopy, performed by Dr. Moffett. Colonoscopy was good prep, exam to terminal ileum. A few diverticula were noted in the sigmoid colon. It was not completely normal. There was mild left- sided diverticulosis. The EGD performed the same day showed a normal esophagus , stomach, and duodenum. No biopsies were performed. A colonoscopy performed in November of 2014 for followup of adenomatous polyps was a good prep, exam to terminal ileum, 4-mm polyp in the ascending colon, 5-mm polyp in the transverse colon, a few small-mouthed diverticula in the sigmoid colon. Pathology of the ascending colon polyp was a tubular adenoma. The proximal transverse colon polyp was a sessile serrated adenoma. ASSESSMENT: 1. Presumed upper gastrointestinal bleed given elevated BUN/creatinine ratio and posthemorrhagic anemia. 2. Posthemorrhagic anemia. 3. Melena. 4. Metastatic adenocarcinoma with possible gastrointestinal primary, but negative esophagogastroduodenoscopy and colonoscopy in December. 5. History of chemotherapy-induced colitis. 6. Malnutrition, on TPN. 7. Pancytopenia. RECOMMENDATIONS: 1. Proceed with EGD/enteroscopy for evaluation of presumed upper GI bleed given the elevated BUN/creatinine ratio. I believe this is a slow bleed over the last number of days as evidenced by the decreased hemoglobin over 5 days and elevated BUN since February 16. 2. If the EGD does not reveal any significant findings, I would not recommend prepping for colonoscopy in this patient at present. If she has ongoing bleeding, a tagged red blood cell scan or if the bleeding is more brisk, angiography would be my 1st recommendation. If she remains stable and there is no evidence of source on EGD/enteroscopy, then an outpatient capsule endoscopy would be the next recommended step. Obviously, if a bleeding scan or angiography suggests bleeding in the colon and they are not able to control it, then a colonoscopy would be recommended. 3. Given the patient's multiple medical issues, 4 L oxygen need, this would be a high-risk procedure. I will ask Anesthesia to perform the sedation for this procedure. Thank you for allowing me to participate in this patient's health care. Do not hesitate to call me with any questions. Copy requested to: Dr. Nesbitt /[id number]/MODL MTDD
[2018-02-22] MEDS: predniSONE 20 MG TAB PO SCH (13:01)
[2018-02-22] MEDS: PANTOPRAZOLE SODIUM 40 MG TAB PO SCH (13:01)
[2018-02-22] MEDS: LIOTHYRONINE SODIUM 5 MCG TAB PO SCH (13:01)
--- NOTE | 2018-02-22 14:32 | ASMTCASEMG ---
Living Arrangements What is your living Answers: With Spouse arrangement? Who do you live with? Type Of Residence What kind of residence do Answers: House you live in? Discharge Plan Comments Coordination Status Comments Notes: Patient is a 72yo female who was just discharged from the hospital yesterday afternoon. Patient returns due to bloody stools, shortness of breath, and profound fatigue. Patient has been admitted for GI bleed. No therapies ordered at this time. D/C plan TBD. CM will follow. Date Signed: 02/22/2018 02:31 PM Electronically Signed By:Lizet Brito LCSW
--- NOTE | 2018-02-22 18:29 | GCON ---
CRITICAL CARE CONSULTATION DATE OF CONSULTATION: 02/22/2018 REASON FOR CONSULTATION: GI bleed in a patient with metastatic adenocarcinoma and drug-induced pneum onitis. HISTORY: The patient is a very pleasant 72-year-old who is well known to our service. She was disch arged yesterday. She had what appears to be a drug-induced pneumonitis and was responding nicely to steroids. She was discharged on 60 mg of prednisone. She awoke with bloody stools. These were rm sofía. This was associated with significant weakness, and she was brought back to the hospital and adm itted. Hematocrit was 21 with a hemoglobin of 7.2 on admission. On discharge from the hospital, her hematocrit was in the 28/29 range. She did receive 2 units of blood. She was taken for upper endos copy by Dr. Herrera. This was negative to the third portion of the duodenum. The patient was returne d to the intensive care unit in stable condition. PAST MEDICAL HISTORY: Remarkable for metastatic adenocarcinoma. Presumed primary site is GI. She h as known metastases to both liver and lung. She has a distant history of breast cancer and mastectom y with no evidence of recurrence; thyroid cancer, status post thyroidectomy; hypothyroidism secondary to this; sleep apnea; malnutrition on TPN at night; and a history of type 2 diabetes. DRUG ALLERGIES: Clarithromycin and morphine. SOCIAL HISTORY: The patient is with a supportive and family. 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 FAMILY HISTORY: Lymphoma in her father. REVIEW OF SYSTEMS: Ten-point review of systems is negative as outlined above. There is no history o f underlying heart disease or lung disease until recently. She has been on oxygen at home and uses 4 L. She is quite weak, uses a walker, quite malnourished, and is on TPN. MEDICATIONS: Are as listed. PHYSICAL EXAMINATION: GENERAL: Reveals a woman who is thin, weak. She is awake and alert, responsi ve and appropriate. She is confused about details at times, and occasionally has problems coming up with words or details. VITAL SIGNS: Blood pressure is 100/60, heart rate 82, with sinus rhythm on t he monitor. Respiratory rate is 18. On 4 L, saturations are 100%. She is afebrile. HEENT: Remark able for dry mucous membranes. Nasal cannula oxygen is in place. CHEST: Clear anteriorly. Breath sounds and excursions are diminished secondary to weakness. Some rales are present at the bases post eriorly. HEART: Regular in rate and rhythm. There are no significant murmurs, no gallops. ABDOMEN : Soft, scaphoid. Bowel sounds are present. : No Nichole catheter is in place. EXTREMITIES: Wit hout edema. NEUROLOGIC: Nonfocal. LABORATORY: White blood cell count on admission was 18,700, hematocrit 21.1, platelets 186,000. Mos t recent hematocrit after 2 L is 30. PT was 16 on admission, PTT 23. Sodium is 137, potassium 4.2, BUN 55, with a creatinine of 0.6. Glucoses have been elevated between 100 and 380. Albumin is 2.2, ALT 92. Urinalysis on admission showed 5-10 white blood cells and 4+ bacteria. ASSESSMENT: 1. Gastrointestinal bleed. Presumably this is upper, as she had melena and BUN was increased. Uppe r endoscopy was negative to the third portion of the duodenum. A more distal upper gastrointestinal bleed is possible. Tagged red blood cell study is recommended if she starts bleeding again. Gastroe nterology consultation appreciated. 2. Metastatic adenocarcinoma. 3. Recent pneumonitis, significantly improved with steroids, presumably secondary to chemotherapy: Herceptin. 4. Malnutrition: On total parenteral nutrition at night. Oral intake is inadequate. 5. Distant history of breast and thyroid cancer. 6. Hypoxemia: Secondary to recent pneumonitis, improving. PLAN AND RECOMMENDATIONS: Patient will be kept in the intensive care unit. Hemoglobin and hematocri t will be followed. Oxygen will be continued. Prednisone will be continued at 60 mg per day. Her u sual medications including levothyroxine, lorazepam, etc., will be continued. Pantoprazole will be g iven. Pain control will be maintained if needed. Intravenous fluids will be given. TPN can be rest arted if she remains in the hospital past today. If she re-bleeds, a tagged red blood cell study wou ld be ordered. Further plans and recommendations will be made based on her progress over the next 12 to 24 hours. /[id number]/MODL
--- NOTE | 2018-02-22 19:22 | HOSPPROG ---
Hospitalist Progress Note Assessment/Plan: Called emergently to bedside by RN for hematochezia. She had significant melena mixed with bright red blood per rectum. No abd pain or dizziness, actually had just ambulated. 98/65, HR 72 comfortable, NAD bilat crackles, no increased WOB abd with normal BS, soft, no TTP Discussed with Dr. Herrera - he does not think an additional endoscopy will be beneficial. Data: 1. EGD today - friable jejunum 2. Colonoscopy 12/18/17 (per Dr. Herrera's note) - diverticulosis 3. CT abd 02/12/18 - mild colitis Impression: 1. Acute GIB ongoing, likely small bowel given elevated BUN; agree that intervenable colonic source very unlikely 2. Borderline hypotension Plan: 1. Tagged RBC scan 2. NS bolus 3. Stat hgb, cont to trend 4. check GI PCR 4. Dr. Herrera aware of plans 40 mins CC time managing GI hemorrhage Objective: Vital Signs Temp Pulse Resp BP Pulse Ox 36.6 C 78 20 98/65 L 97 02/22/18 10:38 02/22/18 18:00 02/22/18 18:00 02/22/18 18:00 02/22/18 18:00 Laboratory Results 02/22/18 18:20 02/21/18 02/22/18 02/23/18 05:59 05:59 05:59 Intake Total 2743 Output Total 340 Balance 2403 PT 16.0 SEC (12.0-15.0) H 02/22/18 04:20 INR 1.26 (0.83-1.16) H 02/22/18 04:20 ICD10 Worksheet Patient Problems: Problems Problem Status Onset GI bleed Acute Adenocarcinoma Acute Neutropenia Acute Neutropenia Acute Thrombocytopenia Acute Thrombocytopenia Acute
[2018-02-22] MEDS ORDERED: PANTOPRAZOLE SODIUM 40 MG VIAL IVP SCH (21:00)
[2018-02-22] MEDS: TPN IV SCH (21:26)
[2018-02-22] MEDS: FAMOTIDINE IV SCH (21:26)
[2018-02-23] MEDS ORDERED: LIOTHYRONINE SODIUM 5 MCG TAB PO SCH (04:30)
[2018-02-23] MEDS: LIOTHYRONINE SODIUM 5 MCG TAB PO SCH (05:37)
[2018-02-23] MEDS: LEVOTHYROXINE 100 MCG TAB PO SCH (05:37)
[2018-02-23] MEDS ORDERED: LEVOTHYROXINE 100 MCG TAB PO SCH (06:00)
[2018-02-23] MEDS ORDERED: MBX SOLN 30 ML BOTTLE PO PRN (08:42)
[2018-02-23] MEDS: PANTOPRAZOLE SODIUM 40 MG TAB PO SCH (08:46)
[2018-02-23] MEDS: predniSONE 20 MG TAB PO SCH (08:46)
--- NOTE | 2018-02-23 10:55 | HOSPPROG ---
Hospitalist Progress Note Assessment/Plan: #Acute GIB: EGD with some friability in jejunum. -had bloody BM last night. Tagged TBC scan pending. H/H stable after 2 units. #Lactic acidosis: from hypovolemic. Resolved with IVFs #Metastatic adenocarcinoma cancer: suspected GI-origin: FOLFOX, Herceptin #Chronic hypoxemic resp failure: resolved. Recent Rhino/Enterovirus infection, + Herceptin-related pneumonitis. Prednisone #Hypotension: improved with IVFs, blood #Compensated diastolic HF: monitor closely with IVF resuscitation #Hypothyroidism: home meds #OLYA #H/o chemo-related colitis #h/o breast cancer #Severe protein caloric malnutrition: TPN #DVT ppx: SCDS #Disp: inpatient admission for EGD, serial labs #Goals: DNR Family at bedside, questions answered. Subjective: bloody BM last night. Tired this morning. No dizziness, CP or SOB Objective: Vital Signs Temp Pulse Resp BP Pulse Ox 36.9 C 87 19 107/60 95 02/23/18 07:34 02/23/18 07:34 02/23/18 07:34 02/23/18 07:34 02/23/18 07:34 Laboratory Results 02/23/18 10:25 02/23/18 05:40 02/22/18 02/23/18 02/24/18 05:59 05:59 05:59 Intake Total 6113 Output Total 340 425 Balance 5773 -425 PT 16.0 SEC (12.0-15.0) H 02/22/18 04:20 INR 1.26 (0.83-1.16) H 02/22/18 04:20 - Time Spent With Patient Time Spent with Patient: greater than 35 minutes Time Spent with Patient: Greater than 35 minutes spent on this patients care, greater than 50% of time spent counseling, educating, and coordinating care regarding the above mentioned plan. - Physical Exam Constitutional: chronically ill appearing Eyes: pale conjunctiva Ears, Nose, Mouth, Throat: moist mucous membranes Cardiovascular: regular rate and rhythym Respiratory: inspiratory crackles (crackles, BL bases) Gastrointestinal: normoactive bowel sounds Genitourinary: No rose in urethra Skin: warm Musculoskeletal: generalized weakness Neurologic: AAOx3, CN II-XII Intact Psychiatric: not encephalopathic ICD10 Worksheet Patient Problems: Problems Problem Status Onset GI bleed Acute Adenocarcinoma Acute Neutropenia Acute Neutropenia Acute Thrombocytopenia Acute Thrombocytopenia Acute
--- NOTE | 2018-02-23 10:59 | PDMN ---
Medical Necessity Medical necessity: [facility] [place]: 72 yo w/ hx metastatic adenocarcinoma to lung/ liver on chemo, presents w/ active LGIB, lactic acidosis, and SOB. Pt is hypotensive, H&H 10/21, elevated WBC. urgent EGD required after GI consult. IVF , transfusion needed. Pt is thrombocytopenic. Post EGD and transfusion pt cont to have active bleed. Plan for tagged RBC scan, cont IVF and transfusions and H&H trending down, cont to trend H&H. IP status per MD as anticipate>2MN for ongoing monitoring and treatment.
--- NOTE | 2018-02-23 11:57 | SOAPPROG ---
PONCE Progress Note Assessment/Plan: Assessment:Plan: see full dictated consult to follow 72 y/o female with metastatic adeno prob GI primary with melena post hemorrheic anemia, increased BUN/Cr c/w UGI source Had egd and colon in December with Dr. Moffett that was unrevealing for EGD at 10:30 with anesthesia Angel Herrera MD [phone] 02/22/18 09:50 02/23/18 11:52 1) GI bleed - I still suspect proximal GI source, I wonder how much of the blood she passed last night was form my small bowel bx's. Tagged RBC scan 2) Anemia - she got two units yesterday am and none post enteroscopy - so I think not as much blood loss as felt - I think her Hb of 10.7 was prob not accurate, maybe not equilibrated enough after transfusion? - her hb was 7.2 when she got two units and I think one one point HB for each unit, follow labs, her most recent HB is 8.6 3) Oncology - I suspect one of the chemotherapy meds to be the cause of her mucosal inflammation. 4) Enteritis - f/u bx , I wonder if Carafate could help coat the areas of inflammation, I usually don't think of it has a small bowel/jejunal drug 02/23/18 11:58 Subjective: CC - GI bleed, post hemorrhagic anemia pt sitting in chair today in good spirits no abdo pain no n/v Objective: Vital Signs Temp Pulse Resp BP Pulse Ox 36.9 C 87 20 103/67 94 02/23/18 07:34 02/23/18 10:00 02/23/18 10:00 02/23/18 10:00 02/23/18 10:00 Laboratory Results 02/23/18 10:25 02/23/18 05:40 02/22/18 02/23/18 02/24/18 05:59 05:59 05:59 Intake Total 6113 Output Total 340 425 Balance 5773 -425 PT 16.0 SEC (12.0-15.0) H 02/22/18 04:20 INR 1.26 (0.83-1.16) H 02/22/18 04:20 A+O CTA S1S2 +BS, soft nt Laboratory Tests 02/22/18 02/22/18 02/22/18 04:20 04:20 10:10 Hgb 7.2 L 9.9 L BUN 55 H Creatinine 0.6 02/22/18 02/22/18 02/22/18 16:57 18:20 21:55 Hgb 10.7 L 9.9 L 8.3 L BUN Creatinine 02/23/18 02/23/18 02/23/18 01:50 05:40 05:40 Hgb 7.9 L 8.2 L BUN 41 H Creatinine 0.5 L 02/23/18 10:25 Hgb 8.6 L BUN Creatinine ICD10 Worksheet Patient Problems: Problems Problem Status Onset GI bleed Acute Adenocarcinoma Acute Neutropenia Acute Neutropenia Acute Thrombocytopenia Acute Thrombocytopenia Acute
--- NOTE | 2018-02-23 14:55 | PDINTPN ---
[employer] Progress Note Assessment/Plan: Assessment: GI bleed. Status post 2 units packed red blood cells yesterday. Negative upper endoscopy. Possibly re-bled last night. Hematocrit however is stable today. For tagged red blood cell study. Anemia secondary to cancer/chemotherapy, with a component of acute blood-loss anemia: Hematocrit stable at 32. No evidence of active bleeding at this time. Pneumonitis. Presumably secondary to Herceptin. Resolving. On prednisone at 60 mg. No longer requiring oxygen. Metastatic adenocarcinoma. Hyperglycemia: In part secondary to steroids. May need sliding scale coverage. DVT prophylaxis: SCDs alone in light of bleeding. GI prophylaxis: Pantoprazole. Malnutrition: Has been on TPN at night. We may need to restart that here. Plan: Continue present care. Await results of tagged red blood cell study. Continue to follow H&H. Blood if needed. Continue steroids at 60 for now. Follow laboratory, chest x-ray intermittently. 30 min of critical care time spent directly with the patient managing issues as above. Discussed with the patient, nursing, GI, hospitalist, and the ICU multi disciplinary team. Subjective: Somewhat confused this morning. Denies shortness of breath. Denies abdominal pain. Objective: Vital Signs Temp Pulse Resp BP Pulse Ox 37.1 C 98 20 107/70 94 02/23/18 12:00 02/23/18 12:00 02/23/18 12:00 02/23/18 12:00 02/23/18 12:00 Laboratory Results 02/23/18 10:25 02/23/18 05:40 02/22/18 02/23/18 02/24/18 05:59 05:59 05:59 Intake Total 6113 Output Total 340 425 Balance 5773 -425 PT 16.0 SEC (12.0-15.0) H 02/22/18 04:20 INR 1.26 (0.83-1.16) H 02/22/18 04:20 Laboratory Tests 02/23/18 05:40 Calcium 7.1 L Physical Exam - Physical Exam General Appearance: alert, mild distress, thin EENT: PERRL/EOMI, other (On room air today: 94%) Neck: normal inspection (No JVD) Respiratory: lungs clear, decreased breath sounds, rales (Few rales posteriorly at the bases with full inspiration. No rales anteriorly), No rhonchi, No wheezing Cardiac/Chest: regular rate, rhythm, No gallop Abdomen: normal bowel sounds, non-tender, soft Pelvic Exam: other (No Nichole catheter, using commode) Skin: warm/dry, pallor Extremities: No pedal edema Neuro/Psych: no motor/sensory deficits, cognition abnormalities (Confused at times regarding specific issues/facts) ICD10 Worksheet Patient Problems: Problems Problem Status Onset Adenocarcinoma Acute Neutropenia Acute Neutropenia Acute Thrombocytopenia Acute Thrombocytopenia Acute GI bleed Acute
[2018-02-23] MEDS: ACETAMINOPHEN 325 MG TAB PO PRN (14:59)
--- NOTE | 2018-02-23 16:41 | ASMTCMCOM ---
CM Note CM Note Notes: Patient had a possible re-bleed last night. Patient has metastatic cancer and is DNR. PT ordered. D/C plan TBD. CM will follow. Date Signed: 02/23/2018 04:40 PM Electronically Signed By:Lizet Brito LCSW
[2018-02-23] MEDS: TPN IV SCH (21:22)
[2018-02-23] MEDS: FAMOTIDINE IV SCH (21:22)
[2018-02-24] MEDS: LEVOTHYROXINE 100 MCG TAB PO SCH (04:27)
[2018-02-24] MEDS: LIOTHYRONINE SODIUM 5 MCG TAB PO SCH (04:27)
[2018-02-24] MEDS: predniSONE 20 MG TAB PO SCH (08:47)
[2018-02-24] MEDS: PANTOPRAZOLE SODIUM 40 MG TAB PO SCH (08:47)
[2018-02-24] MEDS: ACETAMINOPHEN 325 MG TAB PO PRN (09:12)
--- NOTE | 2018-02-24 11:43 | HOSPPROG ---
Hospitalist Progress Note Assessment/Plan: #Acute GIB: EGD with some friability in jejunum. Normal tagged RBC scan #Lactic acidosis: from hypovolemic. Resolved with IVFs #Metastatic adenocarcinoma cancer: suspected GI-origin: FOLFOX, Herceptin #Chronic hypoxemic resp failure: resolved. Recent Rhino/Enterovirus infection, + Herceptin-related pneumonitis. Will start tapering prednison #Hypotension: from blood loss. Resolved #Compensated diastolic HF: monitor closely with IVF resuscitation #Hypothyroidism: home meds #OLYA #H/o chemo-related colitis #h/o breast cancer #Severe protein caloric malnutrition: TPN #DVT ppx: SCDS #Disp: inpatient admission for EGD, serial labs #Goals: DNR Family at bedside, questions answered. OK for med-surg Subjective: no cp or SOB Objective: Vital Signs Temp Pulse Resp BP Pulse Ox 36.8 C 85 25 H 110/77 95 02/24/18 11:41 02/24/18 11:41 02/24/18 11:41 02/24/18 11:41 02/24/18 11:41 Laboratory Results 02/24/18 06:00 02/24/18 06:00 02/23/18 02/24/18 02/25/18 05:59 05:59 05:59 Intake Total 6113 3706 442 Output Total 340 975 200 Balance 5773 2731 242 PT 16.0 SEC (12.0-15.0) H 02/22/18 04:20 INR 1.26 (0.83-1.16) H 02/22/18 04:20 - Time Spent With Patient Time Spent with Patient: greater than 35 minutes Time Spent with Patient: Greater than 35 minutes spent on this patients care, greater than 50% of time spent counseling, educating, and coordinating care regarding the above mentioned plan. - Physical Exam Constitutional: other (fatigued) Eyes: PERRL Ears, Nose, Mouth, Throat: dry mucous membranes Cardiovascular: regular rate and rhythym Respiratory: reduced air movement (at bases. No wheezes or crackles) Gastrointestinal: normoactive bowel sounds Genitourinary: no bladder fullness, No rose in urethra Skin: warm Musculoskeletal: full muscle strength Neurologic: AAOx3, CN II-XII Intact Psychiatric: flat affect ICD10 Worksheet Patient Problems: Problems Problem Status Onset GI bleed Acute Adenocarcinoma Acute Neutropenia Acute Neutropenia Acute Thrombocytopenia Acute Thrombocytopenia Acute
--- NOTE | 2018-02-24 14:11 | ASMTCMCOM ---
CM Note CM Note Notes: CM met w/ pt and Varinder, for dispo planning. Pt is currently getting TPN through [facility]. Pt is also current w/ [facility]. Updates sent to both agencies. Varinder would like a referral made to [facility]. Varinder's phone number is [phone]. He would like [facility] to call him directly. CM to follow. Plan: [facility] w/ [facility] Rich; PT, RN Date Signed: 02/24/2018 02:10 PM Electronically Signed By:SHU Patel
--- NOTE | 2018-02-24 14:49 | SOAPPROG ---
PONCE Progress Note Assessment/Plan: Assessment:Plan: see full dictated consult to follow 72 y/o female with metastatic adeno prob GI primary with melena post hemorrheic anemia, increased BUN/Cr c/w UGI source Had egd and colon in December with Dr. Moffett that was unrevealing for EGD at 10:30 with anesthesia Angel Herrera MD [phone] 02/22/18 09:50 02/23/18 11:52 1) GI bleed - I still suspect proximal GI source, I wonder how much of the blood she passed last night was form my small bowel bx's. Tagged RBC scan 2) Anemia - she got two units yesterday am and none post enteroscopy - so I think not as much blood loss as felt - I think her Hb of 10.7 was prob not accurate, maybe not equilibrated enough after transfusion? - her hb was 7.2 when she got two units and I think one one point HB for each unit, follow labs, her most recent HB is 8.6 3) Oncology - I suspect one of the chemotherapy meds to be the cause of her mucosal inflammation. 4) Enteritis - f/u bx , I wonder if Carafate could help coat the areas of inflammation, I usually don't think of it has a small bowel/jejunal drug 02/23/18 11:58 02/24/18 14:43 1) GI bleed - I sill think my theory is accurate with prox small bowel source. tagged rbc not showing any active bleed but will miss slow blood loss, BUN and HB both are stable 2) Anemia - HB stable 3) Enteritis - bx pending, if no more bleeding then I would not consider Carafate - not sure it will be effective and it will bind other meds in her bowel if her bleeding stops, hb stable and BUN decreasing she might be able to go home soon Subjective: CC- GI bleed, post hemorrhagic anemia, metastatic adenocarcinoma pt sitting in bed, appears brighter, more alert, son and daughter at bedside she has been tolerating liquids and had a chocolate covered praveena today Objective: Vital Signs Temp Pulse Resp BP Pulse Ox 36.8 C 85 25 H 110/77 95 02/24/18 11:41 02/24/18 11:41 02/24/18 11:41 02/24/18 11:41 02/24/18 11:41 Laboratory Results 02/24/18 13:00 02/24/18 06:00 02/23/18 02/24/18 02/25/18 05:59 05:59 05:59 Intake Total 6113 3706 442 Output Total 340 975 200 Balance 5773 2731 242 PT 16.0 SEC (12.0-15.0) H 02/22/18 04:20 INR 1.26 (0.83-1.16) H 02/22/18 04:20 Alert Clear anteriorly S1S2 +BS, soft nt Laboratory Tests 02/23/18 02/23/18 02/23/18 05:40 05:40 10:25 Hgb 8.2 L 8.6 L Hct 23.2 L 25.3 L BUN 41 H Creatinine 0.5 L 02/23/18 02/24/18 02/24/18 17:50 00:45 06:00 Hgb 7.6 L 7.5 L 7.9 L Hct 22.2 L 21.8 L 23.5 L BUN Creatinine 02/24/18 02/24/18 06:00 13:00 Hgb 8.0 L Hct 24.5 L BUN 41 H Creatinine 0.5 L ICD10 Worksheet Patient Problems: Problems Problem Status Onset GI bleed Acute Adenocarcinoma Acute Neutropenia Acute Neutropenia Acute Thrombocytopenia Acute Thrombocytopenia Acute
--- NOTE | 2018-02-24 17:25 | SOAPPROG ---
SOAP Progress Note Assessment/Plan: Assessment: GI bleed. Status post 2 units packed red blood cells. Negative upper endoscopy. Negative tagged red blood cell scan. Hematocrit stable. Anemia secondary to cancer/chemotherapy, with a component of acute blood-loss anemia: Hematocrit stable at 24. No evidence of active bleeding at this time. Pneumonitis. Presumably secondary to Herceptin. Resolving. On prednisone at 50 mg: Will taper over the next couple of weeks. No longer requiring oxygen. Metastatic adenocarcinoma. Hyperglycemia: In part secondary to steroids. May need sliding scale coverage. DVT prophylaxis: SCDs alone in light of bleeding. GI prophylaxis: Pantoprazole. Malnutrition: Has been on TPN at night. We may need to restart that here. Plan: Continue present care. Continue to follow H&H. Blood if needed. Continue steroids, okay to be again taper. Follow chest x-ray prior to discharge and intermittently as needed. Outpatient pulmonary follow-up with chest x-ray in approximately 3 weeks to be arranged. Subjective: Doing okay. Tired. Slightly confused at times. Denies shortness of breath. Objective: Vital Signs Temp Pulse Resp BP Pulse Ox 36.6 C 85 16 114/67 94 02/24/18 15:41 02/24/18 15:41 02/24/18 15:41 02/24/18 15:41 02/24/18 15:41 Laboratory Results 02/24/18 13:00 02/24/18 06:00 02/23/18 02/24/18 02/25/18 05:59 05:59 05:59 Intake Total 6113 3706 1405 Output Total 340 975 200 Balance 5773 2731 1205 PT 16.0 SEC (12.0-15.0) H 02/22/18 04:20 INR 1.26 (0.83-1.16) H 02/22/18 04:20 Tagged red blood cell study: Negative Physical Exam - Physical Exam General Appearance: thin EENT: PERRL/EOMI, other (On room air) Neck: normal inspection Respiratory: lungs clear (Anteriorly), decreased breath sounds (At bases), rales (Posterior rales present) Cardiac/Chest: regular rate, rhythm Abdomen: non-tender, soft, No normal bowel sounds (Decreased, present) Pelvic Exam: other (No Nichole catheter) Skin: warm/dry, pallor Extremities: No pedal edema Neuro/Psych: cognition abnormalities (Mild confusion at times), No no motor/ sensory deficits ICD10 Worksheet Patient Problems: Problems Problem Status Onset Adenocarcinoma Acute Neutropenia Acute Neutropenia Acute Thrombocytopenia Acute Thrombocytopenia Acute GI bleed Acute
[2018-02-24] MEDS ORDERED: D50W 25 GM/50 ML SYR IVP PRN (19:53)
[2018-02-24] MEDS ORDERED: CALCIUM GLUCONATE 50 ML IV ONE (19:55)
[2018-02-24] MEDS: FAMOTIDINE IV SCH (21:12)
[2018-02-24] MEDS: TPN IV SCH (21:12)
[2018-02-25] MEDS: ACETAMINOPHEN 325 MG TAB PO PRN ×3 (04:44→19:33)
[2018-02-25] MEDS: LEVOTHYROXINE 100 MCG TAB PO SCH (04:44)
[2018-02-25] MEDS: LIOTHYRONINE SODIUM 5 MCG TAB PO SCH (04:45)
[2018-02-25] MEDS: INSULIN LISPRO 100 UNIT/ML SC SCH ×3 (07:40→18:23)
[2018-02-25] MEDS: PANTOPRAZOLE SODIUM 40 MG TAB PO SCH (08:25)
--- NOTE | 2018-02-25 11:31 | SOAPPROG ---
SOAP Progress Note Assessment/Plan: Assessment: Pneumonitis. Presumably secondary to Herceptin. Resolving. On prednisone at 50 mg: Will taper over the next couple of weeks. No longer requiring oxygen. Rales persist posteriorly. No congestion. For a follow-up "new baseline" chest x-ray today prior to discharge. GI bleed. Status post 2 units packed red blood cells. Negative upper endoscopy. Negative tagged red blood cell scan. Hematocrit stable. Anemia secondary to cancer/chemotherapy, with a component of acute blood-loss anemia: Hematocrit stable at 24. No evidence of active bleeding at this time. Metastatic adenocarcinoma. Hyperglycemia: In part secondary to steroids. May need sliding scale coverage. DVT prophylaxis: SCDs alone in light of bleeding. GI prophylaxis: Pantoprazole. Malnutrition: Has been on TPN at night. We may need to restart that here. Plan: Probably home today. Continue prednisone at 40 mg with slow taper over 3 -4 days by 10 mg. Follow chest x-ray today prior to discharge and intermittently as needed. Outpatient pulmonary follow-up with chest x-ray in approximately 3 weeks to be arranged. Discussed with the patient and her , hospitalist service. Addendum: Following this note and prior to her discharge she had an other bloody bowel movement. She will be kept in the hospital, hemoglobin and hematocrit followed. GI to re-evaluate. Subjective: Doing okay, denies shortness of breath. No pain. No further bleeding. Objective: Vital Signs Temp Pulse Resp BP Pulse Ox 35.9 C L 80 18 118/71 96 02/25/18 07:37 02/25/18 07:37 02/25/18 07:37 02/25/18 07:37 02/25/18 07:37 Laboratory Results 02/25/18 02:35 02/24/18 06:00 02/24/18 02/25/18 02/26/18 05:59 05:59 05:59 Intake Total 3706 2705 Output Total 975 1100 350 Balance 2731 1605 -350 PT 16.0 SEC (12.0-15.0) H 02/22/18 04:20 INR 1.26 (0.83-1.16) H 02/22/18 04:20 Physical Exam - Physical Exam General Appearance: alert, no apparent distress EENT: other (On room air) Neck: normal inspection (No JVD) Respiratory: lungs clear (Anteriorly), decreased breath sounds (Bilaterally), rales (Present posteriorly approximately [address] or more, scattered), No rhonchi, No wheezing Cardiac/Chest: regular rate, rhythm Abdomen: normal bowel sounds, non-tender, soft Skin: warm/dry, pallor Extremities: No pedal edema Neuro/Psych: no motor/sensory deficits, No cognition abnormalities ICD10 Worksheet Patient Problems: Problems Problem Status Onset GI bleed Acute Adenocarcinoma Acute Neutropenia Acute Neutropenia Acute Thrombocytopenia Acute Thrombocytopenia Acute
--- NOTE | 2018-02-25 11:32 | PDIAF ---
- Diagnosis Diagnosis: GIB Code Status: Do Not Resuscitate - Medication Management Discharge Medications: electronically signed and located in the Home Medication List. - Orders Services needed: Home Care, Registered Nurse, Physical Therapy, Occupational Therapy Home Care Face to Face: I certify that this patient was under my care and that I had the required [id number] encounter meeting the encounter requirements on the discharge day. My findings support the fact that the patient is homebound as defined in Home Care Face to Face Continued: CMS Chapter 7 Medicare Benefits Manual 30.1.1 , The condition of the patient is such that there exists a normal inability to leave home and consequently, leaving home would require a considerable and taxing effort. Isolation Type: None Diet Recommendation: no restrictions on diet Diet Texture: Regular Texture Diet Additional Instructions: Home cyclic TPN as previously prescribed - Follow Up Care Current Providers and Referrals: Alphonso Hurt MD [Primary Care Provider] - As per Instructions Gabriel Ospina MD [Medical Doctor] -
--- NOTE | 2018-02-25 11:55 | ASMTLACE ---
LACE Length of stay for Answers: 3 days current admission Acuity / Level of Answers: Yes Care: Did the patient have an inpatient admission? Comorbidities - select Answers: Other Notes: GI Bleed all that apply # of Emergency department Answers: 1-2 visits in the last 6 months Score: 8 Date Signed: 02/25/2018 11:54 AM Electronically Signed By:Jocelyn Pedersen LCSW
--- NOTE | 2018-02-25 11:57 | ASMTDCNOTE ---
Case Management Discharge Discharge Order Complete? Answers: Yes Transportation Arranged Answers: Family/Friends Transport will Pick (Date 02/25/2018 12:30 PM & Time) Faxed Final Orders Answers: Yes Notes: [facility], [facility], [facility] Family Notified Answers: Yes Notes: to transport Discharge Comments Notes: Patient has been discharged home with , [facility] Date Signed: 02/25/2018 11:56 AM Electronically Signed By:Jocelyn Pedersen LCSW
[2018-02-25] MEDS ORDERED: SODIUM CL NASAL 45 ML BTL EACHNARE PRN (12:39)
[2018-02-25] MEDS: predniSONE 20 MG TAB PO SCH (12:55)
--- NOTE | 2018-02-25 13:18 | HOSPPROG ---
Hospitalist Progress Note Assessment/Plan: #Acute GIB: bloody BM right before discharge today. EGD with some friability in jejunum. Normal tagged RBC scan -repeat H/H stable, serial labs today #Lactic acidosis: from hypovolemic. Resolved with IVFs #Metastatic adenocarcinoma cancer: suspected GI-origin: FOLFOX, Herceptin #Chronic hypoxemic resp failure: resolved. Recent Rhino/Enterovirus infection, + Herceptin-related pneumonitis. Prednisone taper and FU Dr. Goel in clinic #Hypotension: from blood loss. Resolved #Compensated diastolic HF: monitor closely with IVF resuscitation #Hypothyroidism: home meds #OLYA #H/o chemo-related colitis #h/o breast cancer #Severe protein caloric malnutrition: TPN #DVT ppx: SCDS #Disp: reverse discharge and monitor overnight for bleeding, serial labs #Goals: DNR Subjective: Right before discharge today, had bloody BM. Not dizzy Objective: Vital Signs Temp Pulse Resp BP Pulse Ox 35.9 C L 80 18 118/71 96 02/25/18 07:37 02/25/18 07:37 02/25/18 07:37 02/25/18 07:37 02/25/18 07:37 Laboratory Results 02/25/18 12:03 02/24/18 06:00 02/24/18 02/25/18 02/26/18 05:59 05:59 05:59 Intake Total 3706 2705 360 Output Total 975 1100 500 Balance 2731 1605 -140 PT 16.0 SEC (12.0-15.0) H 02/22/18 04:20 INR 1.26 (0.83-1.16) H 02/22/18 04:20 - Time Spent With Patient Time Spent with Patient: greater than 35 minutes Time Spent with Patient: Greater than 35 minutes spent on this patients care, greater than 50% of time spent counseling, educating, and coordinating care regarding the above mentioned plan. - Physical Exam Constitutional: no apparent distress, chronically ill appearing Eyes: PERRL Ears, Nose, Mouth, Throat: moist mucous membranes Cardiovascular: regular rate and rhythym Respiratory: reduced air movement, No rhonchi Gastrointestinal: normoactive bowel sounds Genitourinary: no bladder fullness Skin: warm Musculoskeletal: generalized weakness Neurologic: AAOx3, CN II-XII Intact Psychiatric: interacting appropriately, No encephalopathic ICD10 Worksheet Patient Problems: Problems Problem Status Onset GI bleed Acute Adenocarcinoma Acute Neutropenia Acute Neutropenia Acute Thrombocytopenia Acute Thrombocytopenia Acute
[2018-02-25] MEDS ORDERED: IOPAMIDOL (ISOVUE 370) 100 ML BTL IV ONE (14:19)
[2018-02-25] MEDS ORDERED: AMPICILLIN/SULBACTAM 3 GM in NS 100 ML IV SCH (15:48)
[2018-02-25] MEDS: AMPICILLIN/SULBACTAM 3 GM in NS 100 ML IV SCH ×2 (16:39→20:58)
--- NOTE | 2018-02-25 18:05 | SOAPPROG ---
PONCE Progress Note Assessment/Plan: Assessment:Plan: 02/23/18 11:52 1) GI bleed - I still suspect proximal GI source, I wonder how much of the blood she passed last night was form my small bowel bx's. Tagged RBC scan 2) Anemia - she got two units yesterday am and none post enteroscopy - so I think not as much blood loss as felt - I think her Hb of 10.7 was prob not accurate, maybe not equilibrated enough after transfusion? - her hb was 7.2 when she got two units and I think one one point HB for each unit, follow labs, her most recent HB is 8.6 3) Oncology - I suspect one of the chemotherapy meds to be the cause of her mucosal inflammation. 4) Enteritis - f/u bx , I wonder if Carafate could help coat the areas of inflammation, I usually don't think of it has a small bowel/jejunal drug 02/23/18 11:58 02/24/18 14:43 1) GI bleed - I sill think my theory is accurate with prox small bowel source. tagged rbc not showing any active bleed but will miss slow blood loss, BUN and HB both are stable 2) Anemia - HB stable 3) Enteritis - bx pending, if no more bleeding then I would not consider Carafate - not sure it will be effective and it will bind other meds in her bowel if her bleeding stops, hb stable and BUN decreasing she might be able to go home soon 02/25/18 18:02 1) GI bleed - has a bloody BM just as was to be discharged - repat HB higher then before up to 8.3 2) Anemia - stable HB, follow 3) Onc - FOLFOX prob the agent causing her enteritis, had dose 4 weeks ago so her body should be resolving this soon 4) dispo - maybe home tomorrow Dr. Tiwari to [facility] over inpt service at 7 am Monday Subjective: cc- GI bleed, enteritis maybe for chemo pt in good spirits family in room she has no pain nor f/c/s no more bloody bm's Objective: Vital Signs Temp Pulse Resp BP Pulse Ox 36.4 C 75 16 127/74 H 96 02/25/18 16:25 02/25/18 16:25 02/25/18 16:25 02/25/18 16:25 02/25/18 16:25 Laboratory Results 02/25/18 12:03 02/24/18 06:00 02/24/18 02/25/18 02/26/18 05:59 05:59 05:59 Intake Total 3706 2705 360 Output Total 975 1100 500 Balance 2731 1605 -140 PT 16.0 SEC (12.0-15.0) H 02/22/18 04:20 INR 1.26 (0.83-1.16) H 02/22/18 04:20 CTA S1S2 +BS, soft nt alert and oriented Laboratory Tests 02/24/18 02/24/18 02/25/18 06:00 13:00 02:35 Hgb 7.9 L 8.0 L 7.5 L Hct 23.5 L 24.5 L 22.2 L 02/25/18 12:03 Hgb 8.3 L Hct 24.4 L ICD10 Worksheet Patient Problems: Problems Problem Status Onset GI bleed Acute Adenocarcinoma Acute Neutropenia Acute Neutropenia Acute Thrombocytopenia Acute Thrombocytopenia Acute
[2018-02-25] MEDS: TPN IV SCH (20:59)
[2018-02-25] MEDS: FAMOTIDINE IV SCH (20:59)
[2018-02-26] MEDS: LEVOTHYROXINE 100 MCG TAB PO SCH (04:22)
[2018-02-26] MEDS: AMPICILLIN/SULBACTAM 3 GM in NS 100 ML IV SCH ×4 (04:22→21:58)
[2018-02-26] MEDS: LIOTHYRONINE SODIUM 5 MCG TAB PO SCH (04:22)
[2018-02-26 04:51] LABS: PLATELET COUNT 156 10^3/uL (150-400)
[2018-02-26] MEDS: INSULIN LISPRO 100 UNIT/ML SC SCH ×3 (08:10→18:19)
[2018-02-26] MEDS: ACETAMINOPHEN 325 MG TAB PO PRN (08:10)
[2018-02-26] MEDS: predniSONE 20 MG TAB PO SCH (08:11)
[2018-02-26] MEDS: PANTOPRAZOLE SODIUM 40 MG TAB PO SCH (08:11)
--- NOTE | 2018-02-26 09:57 | SOAPPROG ---
SOAP Progress Note Assessment/Plan: Assessment: 1. Post hemorrhagic anemia secondary to GI bleed from enteritis; drop in HGB without significant bleeding in last 24 hours. 2. 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 3. Chemo induced enteritis. Plan: 1. Recieving prbc transfusion today. 2. Await SB bx results. 3. No need for further endoscopic intervention at this time. Wily Tiwari MD 02/26/18 09:53 Subjective: CC: GI Bleed. Interval HPI: Patient had one BM last night with small amount of BRB on BM. Tolerating po. Objective: Vital Signs Temp Pulse Resp BP Pulse Ox 36.5 C 89 16 127/77 H 94 02/26/18 09:28 02/26/18 09:28 02/26/18 09:28 02/26/18 09:28 02/26/18 09:28 Microbiology 02/25/18 18:23 Gastrointestinal Tract Panel (PCR) - Final Stool No Organism Detected By Pcr Laboratory Results 02/26/18 04:30 02/24/18 06:00 02/25/18 02/26/18 02/27/18 05:59 05:59 05:59 Intake Total 2705 1687 Output Total 1100 500 Balance 1605 1187 PT 16.0 SEC (12.0-15.0) H 02/22/18 04:20 INR 1.26 (0.83-1.16) H 02/22/18 04:20 Physical Exam - Physical Exam General Appearance: WD/WN, alert, no apparent distress Respiratory: lungs clear, normal breath sounds Cardiac/Chest: regular rate, rhythm Abdomen: normal bowel sounds, non-tender, soft Skin: warm/dry Neuro/Psych: alert, normal mood/affect, oriented x 3 ICD10 Worksheet Patient Problems: Problems Problem Status Onset GI bleed Acute Adenocarcinoma Acute Neutropenia Acute Neutropenia Acute Thrombocytopenia Acute Thrombocytopenia Acute
--- NOTE | 2018-02-26 13:16 | HOSPPROG ---
Hospitalist Progress Note Assessment/Plan: 72 yo F w recent dx of metastatic CA Acute GIB: bloody BM right before discharge today. EGD with some friability in jejunum. Normal tagged RBC scan received more blood this AM repeat hct in AM no bleeding this AM jejunal inflammation: uncertain cause, felt to be source of bleeding bx pending chmeo last 01/25, folfox and herceptin onc to see AM 02/27 to weigh on likelihood that chemo is the cause parotiditis: contralateral to last event confirmed by CT unasyn [place] Lactic acidosis: from hypovolemic. Resolved with IVFs Metastatic adenocarcinoma cancer: suspected GI-origin: FOLFOX, Herceptin Chronic hypoxemic resp failure: resolved. Recent Rhino/Enterovirus infection, + Herceptin-related pneumonitis. Prednisone taper and FU Dr. Goel in clinic Hypotension: from blood loss. Resolved Compensated diastolic HF: monitor closely with IVF resuscitation Hypothyroidism: home meds OLYA H/o chemo-related colitis h/o breast cancer Severe protein caloric malnutrition: TPN DVT ppx: SCDS Disp: inpatient Goals: DNR Subjective: case d/w dr inman Objective: Vital Signs Temp Pulse Resp BP Pulse Ox 36.5 C 89 16 127/77 H 94 02/26/18 09:28 02/26/18 09:28 02/26/18 09:28 02/26/18 09:28 02/26/18 09:28 Microbiology 02/25/18 18:23 Gastrointestinal Tract Panel (PCR) - Final Stool No Organism Detected By Pcr Laboratory Results 02/26/18 10:45 02/26/18 10:45 02/25/18 02/26/18 02/27/18 05:59 05:59 05:59 Intake Total 2705 1687 Output Total 1100 500 350 Balance 1605 1187 -350 PT 16.0 SEC (12.0-15.0) H 02/22/18 04:20 INR 1.26 (0.83-1.16) H 02/22/18 04:20 - Physical Exam Constitutional: no apparent distress, appears nourished Eyes: PERRL, anicteric sclera Ears, Nose, Mouth, Throat: moist mucous membranes, hearing normal Cardiovascular: regular rate and rhythym, no murmur, rub, or gallop, edema Respiratory: no respiratory distress, no rales or rhonchi Gastrointestinal: normoactive bowel sounds, soft, non-tender abdomen Genitourinary: no bladder fullness, No rose in urethra Skin: warm, normal color Musculoskeletal: full muscle strength, no muscle tenderness ICD10 Worksheet Patient Problems: Problems Problem Status Onset GI bleed Acute Adenocarcinoma Acute Neutropenia Acute Neutropenia Acute Thrombocytopenia Acute Thrombocytopenia Acute
--- NOTE | 2018-02-26 13:19 | ASMTCMCOM ---
CM Note CM Note Notes: Patient plan of care reviewed in rounds. Met with her who reveals he feels like he is well supported by outpatient services. He tells me that [facility] is to visit with them tomorrow. CM to follow, [facility] and [facility] in place to help after discharge. Plan: Home with services when medically cleared for discharge. Date Signed: 02/26/2018 01:18 PM Electronically Signed By:Alisa López RN
[2018-02-26] MEDS: TPN IV SCH (21:05)
[2018-02-26] MEDS: FAMOTIDINE IV SCH (21:05)
[2018-02-27] MEDS: LIOTHYRONINE SODIUM 5 MCG TAB PO SCH (04:25)
[2018-02-27] MEDS: LEVOTHYROXINE 100 MCG TAB PO SCH (04:25)
[2018-02-27] MEDS: AMPICILLIN/SULBACTAM 3 GM in NS 100 ML IV SCH ×2 (04:30→10:30)
[2018-02-27] MEDS: INSULIN LISPRO 100 UNIT/ML SC SCH ×3 (08:48→18:54)
[2018-02-27] MEDS: PANTOPRAZOLE SODIUM 40 MG TAB PO SCH (08:49)
[2018-02-27] MEDS: predniSONE 20 MG TAB PO SCH (08:49)
--- NOTE | 2018-02-27 08:50 | SOAPPROG ---
SOAP Progress Note Assessment/Plan: Assessment: 1. Post hemorrhagic anemia secondary to GI bleed from enteritis; blood in stool x 1 yesterday. 2. 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 3. Chemo induced enteritis. Plan: 1. Check H/H today.. 2. Await SB bx results. 3. No need for further endoscopic intervention at this time. Wily Tiwari MD 02/27/18 08:47 Subjective: CC: GI Bleed. Interval HPI: Blood in BM yesterday afternoon x 1. None since. No other GI complaints. Objective: Vital Signs Temp Pulse Resp BP Pulse Ox 36.4 C 81 15 127/73 H 89 L 02/27/18 08:00 02/27/18 08:00 02/27/18 08:00 02/27/18 08:00 02/27/18 08:00 Laboratory Results 02/26/18 17:40 02/26/18 10:45 02/26/18 02/27/18 02/28/18 05:59 05:59 05:59 Intake Total 1687 2600 Output Total 500 950 350 Balance 1187 1650 -350 PT 16.0 SEC (12.0-15.0) H 02/22/18 04:20 INR 1.26 (0.83-1.16) H 02/22/18 04:20 Physical Exam - Physical Exam General Appearance: alert, no apparent distress Respiratory: lungs clear, normal breath sounds Abdomen: normal bowel sounds, non-tender, soft Skin: warm/dry Neuro/Psych: alert, normal mood/affect, oriented x 3 ICD10 Worksheet Patient Problems: Problems Problem Status Onset GI bleed Acute Adenocarcinoma Acute Neutropenia Acute Neutropenia Acute Thrombocytopenia Acute Thrombocytopenia Acute
[2018-02-27 09:56] LABS: INR 1.04 (0.83-1.16); PROTIME(PATIENT) 13.8 SEC (12.0-15.0)
[2018-02-27 10:13] LABS: PLATELET COUNT 269 10^3/uL (150-400)
--- NOTE | 2018-02-27 14:48 | GCON ---
PALLIATIVE CARE CONSULTATION REQUESTING PROVIDER: Dr. Herbert. REASON FOR CONSULTATION: To discuss goals of care and potential symptom management, as well as suppo rtive services. HISTORY OF PRESENT ILLNESS: The patient was seen today in the hospital at the request of the [facility] list service. Present for today's visit was the patient's Varinder, as well as nurse practition tonia Hines (shadowing today with family's permission). The patient is a 72-year-old female, who past medical history includes a remote history of breast can cer for which she is status post mastectomy and a history of thyroid cancer status post total thyroid ectomy. She was recently diagnosed with adenocarcinoma of a suspected GI source, but currently it is considered unknown primary. She has known metastasis to lung and liver. She has undergone treatmen t previously with FOLFOX and Herceptin. She was hospitalized from 02/07 to 02/21, and diagnosed with pneumonitis believed to be due to Herceptin. O2 needs were quite high at that time, in excess of 20 L, however, she responded quite well to steroid therapy with a marked improvement in her hypoxia. S he was discharged on the , but presented again on the , after developing melenic stools. The patient has been worked up for GI bleed. The source has not been identified (has undergone EGD as w ell as tagged red blood cells scan), but believed to be proximal small bowel given presentation. Of note, during prior hospitalization, CT of the abdomen and pelvis on 02/12, showed mild ileus, a diffu se mild colitis which was felt to be either secondary to chemotherapy or infection, and a partial res ponse to chemotherapy with a decrease in size of a previously identified liver lesion. In discussing the patient's course with Dr. Valladares this morning, he feels that her liver and lung lesions may be a bit better in response to prior chemotherapy, however, she has obviously developed what is likely s ome GI toxicity and had clear pulmonary toxicity from Herceptin. If her functional status improves, Dr. Valladares feels that it is possible other lines of therapy may be offered. In house, the patient has had recurrent melenic stools, and in fact required transfusion yesterday. Last melena was last evening, apparently small volume. She has been restarting p.o. intake. For sev eral weeks, she had lost all of her sense of taste and was able to tolerate very little p.o. This is starting to recover and she feels that she has enjoyed the few bites of food she has had in the last few days. She has been treated throughout both hospitalizations with TPN and this is obviously very important to her and her . The patient's understanding of her current situation is she is aware she has metastatic cancer and th is is not a curable disease, but hopes to "kind of wait and see" as to whether or not she would be ab le to tolerate further therapy, which would hopefully be life prolonging. For both she and Varinder, kirsten ey find the lack of definitive answers somewhat frustrating, but they do understand that this is ofte n the situation in medicine. She is looking at the positives and is hoping to do anything she might do to help her lung function, and regain some of her physical strength. She feels that it would impo rtant to return home and both she and Varinder would hope to regain some of their prior high level of ac tivity. However, the patient realizes that this may not he achievable and she is hoping instead to p erhaps have more time with family and have simpler goals, less focus on her prior athleticism, extens teja travel and hobbies including sculpture and gardening. She states primarily she hopes for calmnes s, as her course for the last few weeks has been very convoluted and stressful for her and her family . In discussing treatment from this point forward, the patient would like to pursue further treatment i f offered. As mentioned above, she sites her multiple side effects and treatment to date though, and does have some trepidation. When discussing the couple's needs at home, it appears that they are in vestigating private dry plasterer helper at home. Varinder is able to acknowledge that he simply cannot keep up p hysically with everything she might need, including things as simple as repeatedly walking her to the bathroom and all that that may entail. They have already arranged for house signal tester. The feel the y might hire someone to help with the cooking and would be very interested in home physical therapy t o facilitate the patient's goals. The couple states that they feel they have no spiritual needs currently. They were both raised in re ligious environments, but have not attended sabianism for many years. In discussing the patient's emoti onal state, she was hesitant to admit that she is having feelings of depression or anxiety. When we reframe this to discuss possible grief and reaction to illness, she was able to acknowledge that she has experienced many losses and it anticipating more. Varinder was able to share very similar feelings. They agree that some type of support or counseling around grief could be potentially beneficial, bu t are unsure what form they would like to see that take. They are open to the idea of possible socia l work support at home to discuss issues of grief as well as support for family. They have 2 adult c carlo. Their son is a PA, now in family practice and occupational health, who has suffered recent loss of a friend, but is still present for his parents and tries to help interpret the medical inform ation they are receiving. Their daughter, who also lives locally, is " herself to take car e of her mom," however, the patient did not elaborate further on this issue. They feel their childre n could support as well, but again, do not know what form that might take. The patient and Varinder are very appreciative of all the care they have received both in and out of the hospital. They feel care to date has been excellent and are particularly appreciative of the degree of compassion they felt from the medical services. They do not feel that any of their needs have be en missed to date, however, they do feel at liberty to let us know if there is something that needs a ttention. SYMPTOMS: The patient states she is current pain free. She recently had some neck inflammation (par otitis) which gave her pain as high as 8/10. This was relieved with Tylenol and antibiotics, and she has had no further symptoms. She has had some intermittent nausea, but has essentially resolved now and she is having no difficulty with nausea or vomiting with her recently restarted p.o. intake. Kamlesh wel movements have been variable. She does have occasional "gurgling" which concerns her as a possib le sign of recurrent GI bleeding, but otherwise she has no symptom needs at present. SOCIAL HISTORY: She is originally from [place]. She and Varinder have been for 50 years. They malin ve 2 children who both live locally. They have no grandchildren. 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 She stays very active with gardening, has done a lot of work with [employer], and she had Varinder have traveled ex tensively. Varinder is a physicist who has been heavily involved with [employer]. As per HPI, they have no current sabianism affiliation. REVIEW OF SYSTEMS: GENERAL: No fever or chills. She feels generally fatigued, but feels this is mo stly due to being virtually bed bound for 2 months. She did walk this morning, around the [place], and has worked some with Physical Therapy. HEENT: Dry mouth. No difficulty chewing or swallowing. No visual changes. CHEST: No cough, wheezes or shortness of breath. GI: No nausea or vomiting curren tly. Has had melenic stools as well as bright red blood per rectum. : Denies dysuria or hematuri a. NEUROLOGICAL: No difficulties with speech, gait or cognition. Denies headaches. No numbness or tingling. DERMATOLOGIC: Complains of dryness, however, no other acute issues. EXTREMITIES: No mu scle pain, bone pain or joint pain, but does have some chronic mild joint discomfort which she associ ates with her prior athleticism. Full review of systems was otherwise negative. CURRENT MEDICATIONS: 1. Tylenol 650 mg p.o. q.4 h. p.r.n. pain or mild fever. 2. Ampicillin/sulbactam 3 g q.6 h. scheduled. 3. Dextrose p.r.n. hypoglycemia. 4. Bentyl 10 mg p.o. q.i.d. p.r.n. abdominal cramping. 5. Lomotil 1 tab p.o. q.i.d. p.r.n. diarrheal stools. 6. Lispro is being held currently, (available with TPN). 7. Levothyroxine 100 mcg p.o. daily. 8. Magic mouthwash 5 mL p.r.n. mucositis. 9. Cytomel 10 mcg p.o. daily. 10. Olanzapine 5 mg p.o. nightly as needed for nausea or sleep. 11. Zofran 4 mg IV or p.o. q.4 h. p.r.n. nausea and vomiting. 12. Protonix 40 mg p.o. daily. 13. Prednisone 50 mg p.o. daily. 14. Sodium chloride nasal q.4 h. p.r.n. nasal dryness. 15. Zomig 2.5 mg p.o. q.2 h. p.r.n. migraine. ALLERGIES: Clarithromycin, mold and morphine. PAST MEDICAL HISTORY: 1. 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 2. History of breast cancer status post mastectomies and breast implants. 3. Thyroid cancer status post total thyroidectomy. 4. History of colitis. 5. Obstructive sleep apnea. 6. Hypothyroidism. 7. Osteoporosis. 8. Severe protein calorie malnutrition. 9. Previous history of type 2 diabetes. PHYSICAL EXAMINATION: GENERAL: On my evaluation, the patient is alert and oriented x4, a good histo edmar, occasionally tearful, but appropriate to conversation. HEENT: Pupils are equal, round and ileana ctive to light and accommodation with normal extraocular movements. Oropharynx appears dry, but no m ucosal lesions noted. No parotid enlargement currently appreciated. CHEST: Scattered crackles with rare rhonchi in the bases. Overall good air entry. No accessory muscle use or indrawing, and rich l percussion. CARDIOVASCULAR: Regular rate and rhythm without murmurs, rubs or gallops. ABDOMEN: Bowel sounds are present, soft, nontender and nondistended, without palpable or pulsatile masses. EX TREMITIES: No clubbing or cyanosis. She has 2+ edema in the right arm and 1-2+ edema in both legs b ilaterally. There are well-healed surgical scars overlying both knees. NEUROLOGICAL: Cranial nerve s 2 through 12 are grossly intact. No appreciable focal motor deficits. Mental status as noted. DE RM: Limited exam, however, no acute lesions appreciated. LABORATORY WORK: Current hemoglobin 9.4, hematocrit 27.1, white count 12.41, platelets . Chemistries show sodium 135, potassium 4.3, chloride 106, CO2 23, anion gap 6, BUN 31, creatinine 0.5 , GFR greater than 60, glucose 116, calcium 7.4, bilirubin 0.6, AST elevated at 177, ALT 260, alkalin e phosphatase 428, total protein 4.1, albumin 2.0. ASSESSMEN AND PLAN: 1. Metastatic adenocarcinoma of unknown primary. This is suspected to be of gastrointestinal source . It is unclear if this is related to her current gastrointestinal bleeding, but certainly suspected . The patient is interested in persuing further treatment in hopes to regain some degree of her prio r functional status that would allow her, not only to be strong enough to enjoy a better quality of l main, but to in fact tolerate therapy. Dr. Valladares will discuss with patient further once her current issues have stabilized. She is not in alignment with a comfort approach at this time and hospice se rvices were not discussed. 2. Gastrointestinal bleed. The patient had recent melenic stools. This could of course just be res idual, however, given her unidentified source and recurrence, in all likelihood, she will be monitore d another 24 hours to assure no re-bleeding. 3. History of pneumonitis attributed to Herceptin. Current lung exam does show some basilar crackle s and rhonchi, but rather scattered oxygenation is markedly improved than during her last hospitaliza tion and it would appear this for the most part has improved considerably. 4. Symptom needs. The patient currently denies pain and is having only rare nausea, and none for th e last 2-3 days, which has responded well to Zofran. 5. Parotitis. This appears to have resolved clinically. It appears she is finishing her course of Unasyn today. 6. Elevated transaminase and alkaline phosphatase. This could be an TPN effect, however, with her k nown liver disease, a differential would certainly include progression. GOALS OF CARE: As per above, the patient's goals of care are to hopefully improve and receive furthe r therapy for life prolongation. She is interested in returning home as soon as possible and receive d physical therapy at home if offered. SUPPORT NEEDS: The couple is investigating hiring private care givers at home, which I have encourag ed. Varinder is showing signs of caregiver fatigue and I welcome his insight into his needs of help in the home. They are amenable to Palliative Care followup at home, both in terms of medical consult an d social work support, and we will arrange for followup once she has been discharged from the [facility]. CODE STATUS/ADVANCED DIRECTIVES: The patient shares that she was surprised to see a DNR bracelet on her wrist. They felt that that was appropriate when her situation was much more tenuous last month, but now are questioning if she should in fact be a full code. I offered to discuss this with them fu rther today, but they felt that they would rather wait and have this discussion at another time. Wou ld be happy to address again with them at next visit with Palliative Care. Thank you for this consultation and allowing us to participate in the care of this patient. We will follow along with you and follow after discharge. TIME SPENT: 90 minutes, with greater than 50% of this time spent on patient and family counseling, a nd coordination of care. Additional time was spent in discussion with Oncology and hospitalist renu gerber. /[id number]/MODAshlie
--- NOTE | 2018-02-27 15:08 | ASMTCMCOM ---
CM Note CM Note Notes: Patient plan of care reviewed in rounds. Her is present. They had meeting with [facility]. Per reports she still passed black stool during the evening. She will have [facility] infusion and [facility] upon discharge to home. Likely to discharge in next day or so, Plan: Home with services. Date Signed: 02/27/2018 03:07 PM Electronically Signed By:Alisa López RN
--- NOTE | 2018-02-27 18:01 | HOSPPROG ---
Hospitalist Progress Note Assessment/Plan: * Metastatic adeno of unknown primary - likely GI origin but EGD/colonoscopy negative * UGIB with negative EGD except for jejunal inflammation -d/w Dr. Bernard - check SBFT to eval for bleeding tumor - ? 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 TPN * RUE edema -check US rule out DVT - but can't really anticoagulate given ongoing GIB Subjective: Still with bloody BM last night Objective: Vital Signs Temp Pulse Resp BP Pulse Ox 36.4 C 81 16 115/68 93 02/27/18 16:00 02/27/18 16:00 02/27/18 16:00 02/27/18 16:00 02/27/18 16:00 Laboratory Results 02/27/18 09:35 02/27/18 09:35 02/26/18 02/27/18 02/28/18 05:59 05:59 05:59 Intake Total 1687 2600 Output Total 500 950 350 Balance 1187 1650 -350 PT 13.8 SEC (12.0-15.0) 02/27/18 09:35 INR 1.04 (0.83-1.16) 02/27/18 09:35 - Physical Exam Constitutional: no apparent distress, appears nourished, not in pain Cardiovascular: regular rate and rhythym, no murmur, rub, or gallop Respiratory: no respiratory distress, no rales or rhonchi, clear to auscultation Gastrointestinal: normoactive bowel sounds, soft, non-tender abdomen, no palpable masses Skin: no rashes or abrasions, no fluctuance, no induration Neurologic: AAOx3, sensation intact bilaterally Psychiatric: interacting appropriately, not anxious, not encephalopathic, thought process linear ICD10 Worksheet Patient Problems: Problems Problem Status Onset GI bleed Acute Adenocarcinoma Acute Neutropenia Acute Neutropenia Acute Thrombocytopenia Acute Thrombocytopenia Acute
--- NOTE | 2018-02-27 20:41 | GCON ---
REFERRING PHYSICIAN: Renee Bridges MD PRIMARY ONCOLOGIST: Dr. Joey Valladares. REASON FOR CONSULTATION: Patient with underlying adenocarcinoma of unknown primary, HER-2 positive, admitted with rectal bleeding. 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 She is known to Dr. Joey Valladares and was diagnosed with early stage breast cancer in April 2009, T1b tubular carcinoma with LCIS. She had bilateral mastectomies for ER/CO positive disease and she took some adjuvant anastrozole for a period of time. This had never recurred and she saw Joey more recently with ongoing pulmonary and GI symptoms. Unfortunately, after a battery of tests further workup revealed diffuse bilateral pulmonary nodules and liver metastasis. A CT-guided needle biopsy performed of liver revealed poorly differentiated adenocarcinoma. Immunohistochemical staining pattern felt to be consistent with GI primary, felt this was consistent with a colorectal cancer, but upper GI tumor could not be excluded. The patient did have a [employer] test done, molecular diagnosis that showed a 96% probability of colorectal or small intestine adenocarcinoma. She was also discovered to have HER-2/elvie positivity by IHC. Additional tests done including KRAS showed no mutation. PD-L1 was read as combined positive score 21%-30%, which was considered positive for GE junction adenocarcinoma. The patient was initiated on FOLFOX with Herceptin. Patient has been on 3 cycles of FOLFOX, last received 01/25/2018. Shortly thereafter, she was admitted to the hospital for initiation of TPN given ongoing issues with fatigue , diarrhea, and inability to tolerate p.o. She developed pneumonitis on the most recent hospital admission. It was felt this could be treatment-related, possibly Herceptin. However, oxaliplatin could also have been the culprit. Nonetheless, she was in the ICU for a period of time and did respond to steroid treatment and was discharged on nasal cannula. After being home for less than 24 hours, the patient was woken by a significant amount of melenic stools, was very fatigued and hypotensive. She was brought back to the ER on 02/22/2018. The patient had a small bowel study with Dr. Herrera showing no evidence of significant pathology in the 1st portion of the duodenum, or the 2nd portion of the duodenum. In the 3rd portion of the duodenum scattered mucosal changes characterized by congestion, discoloration, and friability. Biopsies were done, these are pending. The patient has had no CT imaging of the abdomen since early February. The patient has required 4 units of packed red blood cells this admission and continues to have intermittent melena, although has largely reduced in severity. LABORATORY ANALYSIS: Today shows a white blood cell count of 12.4, hemoglobin 9.4, hematocrit 27, platelet count of 269,000. Coags are within normal limits. BUN 31, creatinine 0.5. LFTs rising at 177 for AST, 260 for ALT, alkaline phosphatase 428, total protein 4.1, albumin 2. Her bilirubin is normal. MCV does show microcytic red cells consistent with iron deficiency anemia. Will note that she received a tagged red blood scan that was normal. Hematocrit has been stable for about 24 hours. REVIEW OF SYSTEMS: Patient is still reporting some streaky blood on the toilet paper. Denies current abdominal pain unless she eats. Denies shortness of breath or cough. Denies headache or lower extremity edema. PAST MEDICAL HISTORY: Breast cancer in 2009, [id number] diabetes mellitus, hypothyroidism, osteopenia, hypokalemia, hypoalbuminemia. Comorbidities associated with treatment: Diarrhea and nausea. FAMILY HISTORY: Noncontributory. SOCIAL HISTORY: No tobacco, alcohol, or drugs. 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 Is currently . MEDICATIONS: Meds have been reviewed in the EMR. She is currently on Augmentin , levothyroxine, olanzapine, Protonix, prednisone 50 daily. PHYSICAL EXAM: VITAL SIGNS: Today, blood pressure 127/73, pulse of 81, respiration rate 15, saturating 89% currently on room air, temperature is 36.4. GENERAL: She is an elderly woman looks her stated age. She looks fatigued, not in acute distress. HEENT: Anicteric. LUNGS: Very fine inspiratory crackles that are minimal bilaterally. No rhonchi or rales. ABDOMEN: Soft. Mild tenderness to palpation in the mid abdomen. No ascites. No rebound. LOWER EXTREMITIES: No edema. NEUROLOGIC: Nonfocal. LABS: As discussed above. ASSESSMENT AND PLAN: This are a very pleasant 72-year-old woman with a relatively new diagnosis of stage IV HER-2/elvie positive adenocarcinoma of unknown primary. Based on all recent testing and molecular workup, it does appear that this is a GI primary, I would guess most likely small bowel. She has mets to the mediastinum, supraclavicular, liver, bone, and lung with what appears to be lymphangitic spread. The patient most recently was in the hospital for pneumonitis and poor p.o. intake and now is readmitted for GI bleed. 1. Gastrointestinal bleed: The patient had enteroscopy with GI. No obvious pathology, but has dropped her hematocrit a couple times this admission and continues to have melena. GI thought it could be enteritis. My concern is that the primary site of cancer could be bleeding. Primary site has never been identified. Discussed with Dr. Bridges. Will evaluate with a small-bowel follow- through to see if we can demonstrate any abnormalities. This may not change overall plan, but it will certainly give us some answers as ongoing bleeding could be an issue. She is a way out from chemotherapy and I do not think she continues to have side effects from this in this respect. Will continue to monitor her H and H and transfuse as indicated. No evidence of DIC. 2. Pneumonitis: Continues on steroid taper. Will continue to come down off steroids every few days. Saturating well today on room air. 3. Adenocarcinoma of unknown primary: On chemotherapy. Question if this is a small bowel primary that has never been identified. She has been on FOLFOX and Herceptin 3 cycles, last given on 01/25/2018. She has had some significant toxicity from therapy. I would bet that her pneumonitis was from oxaliplatin and would not give up on Herceptin this soon given it is a targeted therapy, although it is really unclear if she is responding at this point or not. She was also PD-L1 positive 20%-30%. Consideration for immunotherapy, but I think it would be nice to know if a small bowel primary is present to know her risk of bleeding going forward with therapy, especially having a life-threatening bleed. 4. Severe protein caloric malnutrition: On TPN. 5. Deep venous thrombosis prophylaxis: SCDs. 6. Patient will continue to be inpatient for the next couple days for ongoing workup. TIME SPENT WITH PATIENT: More than 60 minutes spent with patient, more than 50 % of time counseling and coordinating care. /[id number]/MODL MTDD
[2018-02-27] MEDS: AMOXICILLIN/CLAVULANATE POT 875/125 MG TAB PO SCH (21:47)
[2018-02-27] MEDS: TPN IV SCH (22:01)
[2018-02-27] MEDS: FAMOTIDINE IV SCH (22:01)
[2018-02-28] MEDS: LIOTHYRONINE SODIUM 5 MCG TAB PO SCH (04:10)
[2018-02-28] MEDS: LEVOTHYROXINE 100 MCG TAB PO SCH (04:10)
[2018-02-28 04:37] LABS: PLATELET COUNT 297 10^3/uL (150-400)
[2018-02-28] MEDS: predniSONE 20 MG TAB PO SCH (09:20)
[2018-02-28] MEDS: AMOXICILLIN/CLAVULANATE POT 875/125 MG TAB PO SCH ×2 (09:20→22:39)
[2018-02-28] MEDS: PANTOPRAZOLE SODIUM 40 MG TAB PO SCH (09:20)
[2018-02-28] MEDS: INSULIN LISPRO 100 UNIT/ML SC SCH ×3 (09:21→19:25)
[2018-02-28] MEDS ORDERED: D10W 1,000 ML IV PRN (11:54)
--- NOTE | 2018-02-28 12:49 | SOAPPROG ---
SOAP Progress Note Assessment/Plan: Assessment: 1. Post hemorrhagic anemia secondary to GI bleed from enteritis; continued slow bleed, ? SB pathology. 2. 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 3. Chemo induced enteritis. Plan: 1. Await SBFT results. Wily Tiwari MD 02/28/18 12:46 Subjective: CC: GI bleed. Interval HPI: Continued slow GI bleed. Objective: Vital Signs Temp Pulse Resp BP Pulse Ox 36.8 C 88 16 113/66 95 02/28/18 08:00 02/28/18 08:00 02/27/18 23:08 02/28/18 08:00 02/28/18 08:00 Laboratory Results 02/28/18 04:20 02/27/18 09:35 02/27/18 02/28/18 03/01/18 05:59 05:59 05:59 Intake Total 2600 100 Output Total 950 350 Balance 1650 -250 PT 13.8 SEC (12.0-15.0) 02/27/18 09:35 INR 1.04 (0.83-1.16) 02/27/18 09:35 Physical Exam - Physical Exam General Appearance: alert Respiratory: lungs clear Cardiac/Chest: regular rate, rhythm Abdomen: normal bowel sounds, non-tender, soft Skin: normal color, warm/dry Neuro/Psych: alert ICD10 Worksheet Patient Problems: Problems Problem Status Onset GI bleed Acute Adenocarcinoma Acute Neutropenia Acute Neutropenia Acute Thrombocytopenia Acute Thrombocytopenia Acute
--- NOTE | 2018-02-28 15:18 | SOAPPROG ---
SOAP Progress Note Assessment/Plan: Assessment/Plan: 72 yo woman w stage IV adenocarcinoma of unknown primary admitted w GIB 1. GIB - unclear source; enteroscopy showed enteritis but no dysplasia or malignancy Dropped Hct twice this admission and required 3U PRBCs awaiting SBFT worried small bowel primary not identified and could be bleeding intermittently H/H stable today 2. Stage IV adeno - biotheranostics 96% probability GI source HER2+ Last FOLFOX Herceptin 01/15/2018 Not doing well w therapy poor prognosis PDL1 20-30% positivity; d/w Dr Valladares whether he wants to try IO once pt discharged 3. Poor nutrition - on TPN 4. Pneumonitis - think more likely from oxaliplatin vs Herceptin improved on steroids; cont to taper down 5. Rising LFTs - TPN vs cholecystitis(not clinically) Bili ok known liver lesions 02/28/18 15:21 Subjective: Pt able to eat some today denies BRBPR or melena today Objective: Vital Signs Temp Pulse Resp BP Pulse Ox 36.8 C 88 16 113/66 95 02/28/18 08:00 02/28/18 08:00 02/27/18 23:08 02/28/18 08:00 02/28/18 08:00 Laboratory Results 02/28/18 04:20 02/27/18 09:35 02/27/18 02/28/18 03/01/18 05:59 05:59 05:59 Intake Total 2600 100 Output Total 950 350 Balance 1650 -250 PT 13.8 SEC (12.0-15.0) 02/27/18 09:35 INR 1.04 (0.83-1.16) 02/27/18 09:35 Gen - fatigued appearing CV - RRR Chest - moving air well w very minimal inspiratory crackles Abd - soft, BS+ Ext - no sig edema ICD10 Worksheet Patient Problems: Problems Problem Status Onset GI bleed Acute Adenocarcinoma Acute Neutropenia Acute Neutropenia Acute Thrombocytopenia Acute Thrombocytopenia Acute
[2018-02-28] MEDS ORDERED: predniSONE 20 MG TAB PO SCH (17:11)
--- NOTE | 2018-02-28 17:14 | HOSPPROG ---
Hospitalist Progress Note Assessment/Plan: * Metastatic adenoca of unknown primary - likely GI origin but EGD/colonoscopy negative * UGIB with negative EGD except for jejunal inflammation -SBFT negative -melena resolved -continue PPI * Recent acute respiratory failure due to chemo induced interstitial pneumonitis -likely due to oxaliplatin -prednisone with slow taper * Parotiditis -PO augmentin * Severe protein calorie malnutrition -home cyclic TPN * Lactic acid elevation due to hypovolemic shock -resolved * Increasing LFT -? due to TPN Possible home tomorrow if continues to be w/o ongoing GIB Subjective: no new complaints, no melena today Objective: Vital Signs Temp Pulse Resp BP Pulse Ox 36.8 C 88 16 113/66 95 02/28/18 08:00 02/28/18 08:00 02/27/18 23:08 02/28/18 08:00 02/28/18 08:00 Laboratory Results 02/28/18 04:20 02/27/18 09:35 02/27/18 02/28/18 03/01/18 05:59 05:59 05:59 Intake Total 2600 100 Output Total 950 350 Balance 1650 -250 PT 13.8 SEC (12.0-15.0) 02/27/18 09:35 INR 1.04 (0.83-1.16) 02/27/18 09:35 SBFT - negative case d/w Dr. Bernard regarding malignancy source - Physical Exam Constitutional: no apparent distress, appears nourished, not in pain Cardiovascular: regular rate and rhythym, no murmur, rub, or gallop Respiratory: no respiratory distress, no rales or rhonchi, clear to auscultation Gastrointestinal: normoactive bowel sounds, soft, non-tender abdomen, no palpable masses Skin: no rashes or abrasions, no fluctuance, no induration Neurologic: AAOx3, sensation intact bilaterally Psychiatric: interacting appropriately, not anxious, not encephalopathic, thought process linear ICD10 Worksheet Patient Problems: Problems Problem Status Onset GI bleed Acute Adenocarcinoma Acute Neutropenia Acute Neutropenia Acute Thrombocytopenia Acute Thrombocytopenia Acute
[2018-02-28] MEDS ORDERED: TPN W/ FAMOTIDINE 1 EA BAG IV SCH (21:00)
[2018-03-01] MEDS: LIOTHYRONINE SODIUM 5 MCG TAB PO SCH (04:15)
[2018-03-01] MEDS: LEVOTHYROXINE 100 MCG TAB PO SCH (04:16)
[2018-03-01 04:31] LABS: PLATELET COUNT 263 10^3/uL (150-400)
[2018-03-01 07:55] VITALS: BP 103/54
[2018-03-01] MEDS: AMOXICILLIN/CLAVULANATE POT 875/125 MG TAB PO SCH (09:01)
[2018-03-01] MEDS: PANTOPRAZOLE SODIUM 40 MG TAB PO SCH (09:01)
[2018-03-01] MEDS: INSULIN LISPRO 100 UNIT/ML SC SCH ×2 (09:04→11:48)
--- NOTE | 2018-03-01 10:33 | SOAPPROG ---
SOAP Progress Note Assessment/Plan: Assessment: 1. Post hemorrhagic anemia secondary to GI bleed from enteritis; no further bleeding albeit HGB down somewhat today. Normal SBFT. 2. 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 3. Chemo induced enteritis. Plan: No further GI work-up at this point. Wily Tiwari MD 03/01/18 10:31 Subjective: CC: GI Bleed. Interval HPI: No blood in stool x 72 hours. No Gi complaints today. Objective: Vital Signs Temp Pulse Resp BP Pulse Ox 36.9 C 84 14 103/54 L 95 03/01/18 07:54 03/01/18 07:54 03/01/18 07:54 03/01/18 07:54 03/01/18 07:54 Laboratory Results 03/01/18 04:20 02/27/18 09:35 02/28/18 03/01/18 03/02/18 05:59 05:59 05:59 Intake Total 100 816 Output Total 350 Balance -250 816 PT 13.8 SEC (12.0-15.0) 02/27/18 09:35 INR 1.04 (0.83-1.16) 02/27/18 09:35 Physical Exam - Physical Exam General Appearance: alert, no apparent distress Respiratory: lungs clear Cardiac/Chest: regular rate, rhythm Abdomen: normal bowel sounds, non-tender, soft Skin: normal color, warm/dry Neuro/Psych: alert, normal mood/affect, oriented x 3 ICD10 Worksheet Patient Problems: Problems Problem Status Onset GI bleed Acute Adenocarcinoma Acute Neutropenia Acute Neutropenia Acute Thrombocytopenia Acute Thrombocytopenia Acute
--- NOTE | 2018-03-01 13:04 | ASMTLACE ---
LACE Length of stay for Answers: 7-13 days current admission Acuity / Level of Answers: Yes Care: Did the patient have an inpatient admission? Comorbidities - select Answers: Any tumor (including all that apply lymphoma or leukemia) Other Notes: GI Bleed # of Emergency department Answers: 1-2 visits in the last 6 months Score: 12 Date Signed: 03/01/2018 01:03 PM Electronically Signed By:Parris Troncoso
--- NOTE | 2018-03-01 13:13 | PDIAF ---
- Diagnosis Diagnosis: GIB Code Status: Do Not Resuscitate - Medication Management Discharge Medications: electronically signed and located in the Home Medication List. - Orders Services needed: Home Care, Registered Nurse, Physical Therapy, Occupational Therapy Home Care Face to Face: I certify that this patient was under my care and that I had the required [id number] encounter meeting the encounter requirements on the discharge day. My findings support the fact that the patient is homebound as defined in Home Care Face to Face Continued: CMS Chapter 7 Medicare Benefits Manual 30.1.1 , The condition of the patient is such that there exists a normal inability to leave home and consequently, leaving home would require a considerable and taxing effort. Isolation Type: None Diet Recommendation: no restrictions on diet Diet Texture: Regular Texture Diet Additional Instructions: Home cyclic TPN as previously prescribed Please followup with your Primary Care Doctor within the next to continue to monitor your hemoglobin and make sure it remains stable. Please look out for increased fatigue, weakness, shortness of breath, chest pain. If these symptoms arise, please seek further medical care and/or return to hospital. - Follow Up Care Current Providers and Referrals: Alphonso Hurt MD [Primary Care Provider] - As per Instructions Gabriel Ospina MD [Medical Doctor] -
--- NOTE | 2018-03-01 15:22 | ASMTCMCOM ---
CM Note CM Note Notes: Spoke with pt in the room and with team during rounds. Pt to discharge today home with 's care as well as TPN from [facility], [facility] RN/PT/OT and [facility]. [facility] RN to meet pt tonight to educate and demonstrate TPN infusion. Pt has port. [facility], [facility] and [facility] regarding time of TPN delivery. CM requested [facility] pharmacy fax TPN order to [facility] pharmacy, and fax number provided. Pt and family comfortable with plan. Family to provide transport and retrieve any needed prescriptions. No further CM needs noted at this time. Date Signed: 03/01/2018 03:21 PM Electronically Signed By:Parris Troncoso
--- NOTE | 2018-03-01 15:23 | ASDISCHSUM ---
Discharge Information Plan Status:Home with Home Health Medically Cleared to Leave:02/28/2018 Discharge Date:02/28/2018 CM D/C Disposition:Home Health Service ADT D/C Disposition:Home, Routine, Self-Care Projected Discharge Date:03/01/2018 02:00 PM Transportation at D/C:Family Discharge Delay Reason: Follow-Up Date:03/01/2018 02:00 PM Discharge Slot:2 - 12:01 pm - 18:00 pm Final Diagnosis:GI Bleed Placement Information Referral Type:*Home Health Care Services Referral ID:[id number] Provider Name:[facility] Address 1:[address] Address 2: City:[place] Selection Factors: State:[place] Referral Type:Home Infusion Referral ID:[id number] Provider Name:[facility] Address 1:[address] Address 2: City:[place] Selection Factors: State:[place] Referral Type:Palliative Care Referral ID:[id number] Provider Name:[facility] Address 1[address] Address 2: City:[place] Selection Factors: State:[place] Patient Contact Information Contact Name:DEWEY Relationship: Address:[address] City:[facility] Phone: [facility]/Zip Code:[place] [address] Email: Financial Information Financial Class:Medicare Primary Plan Desc:MEDICARE INPATIENT Primary Plan Number:[id number] Secondary Plan Desc:[employer] Secondary Plan Number:[id number] Assessment Information LACE LACE Length of stay for Answers: 3 days current admission Acuity / Level of Answers: Yes Care: Did the patient have an inpatient admission? Comorbidities - select Answers: Other Notes: GI Bleed all that apply # of Emergency department Answers: 1-2 visits in the last 6 months Score: 8 Date Signed: 02/25/2018 11:54 AM Electronically Signed By:Jocelyn Pedersen LCSW [facility] Initial CM Assessment Living Arrangements What is your living Answers: With Spouse arrangement? Who do you live with? Type Of Residence What kind of residence do Answers: House you live in? Discharge Plan Comments Coordination Status Comments Notes: Patient is a 72yo female who was just discharged from the hospital yesterday afternoon. Patient returns due to bloody stools, shortness of breath, and profound fatigue. Patient has been admitted for GI bleed. No therapies ordered at this time. D/C plan TBD. CM will follow. Date Signed: 02/22/2018 02:31 PM Electronically Signed By:Lizet Brito LCSW [facility] CM Progress Note CM Note CM Note Notes: Patient had a possible re-bleed last night. Patient has metastatic cancer and is DNR. PT ordered. D/C plan TBD. CM will follow. Date Signed: 02/23/2018 04:40 PM Electronically Signed By:Lizet Brito LCSW [facility] CM Progress Note CM Note CM Note Notes: CM met w/ pt and Varinder, pat for dispo planning. Pt is currently getting TPN through [facility]. Pt is also current w/ [facility]. Updates sent to both agencies. Varinder would like a referral made to [facility] palliative. Varinder's phone number is [phone]. He would like [facility] to call him directly. CM to follow. Plan: [facility] Palliative w/ [facility] Rich; PT, RN Date Signed: 02/24/2018 02:10 PM Electronically Signed By:SHU Patel Case Management Discharge Plan Note Case Management Discharge Discharge Order Complete? Answers: Yes Transportation Arranged Answers: Family/Friends Transport will Pick (Date 02/25/2018 12:30 PM & Time) Faxed Final Orders Answers: Yes Notes: [facility] GUERRERO, [facility] Family Notified Answers: Yes Notes: to transport Discharge Comments Notes: Patient has been discharged home with , [facility], [facility] and [facility] palliative Date Signed: 02/25/2018 11:56 AM Electronically Signed By:Jocelyn Pedersen LCSW [facility] CM Progress Note CM Note CM Note Notes: Patient plan of care reviewed in rounds. Met with her who reveals he feels like he is well supported by outpatient services. He tells me that [facility] is to visit with them tomorrow. CM to follow, [facility] and [facility] in place to help after discharge. Plan: Home with services when medically cleared for discharge. Date Signed: 02/26/2018 01:18 PM Electronically Signed By:Alisa López RN BC CM Progress Note CM Note CM Note Notes: Patient plan of care reviewed in rounds. Her is present. They had meeting with [facility]. Per reports she still passed black stool during the evening. She will have [facility] infusion and [facility] upon discharge to home. Likely to discharge in next day or so, Plan: Home with services. Date Signed: 02/27/2018 03:07 PM Electronically Signed By:Alisa López RN LACE LACE Length of stay for Answers: 7-13 days current admission Acuity / Level of Answers: Yes Care: Did the patient have an inpatient admission? Comorbidities - select Answers: Any tumor (including all that apply lymphoma or leukemia) Other Notes: GI Bleed # of Emergency department Answers: 1-2 visits in the last 6 months Score: 12 Date Signed: 03/01/2018 01:03 PM Electronically Signed By:Parris Troncoso [facility] CM Progress Note CM Note CM Note Notes: Spoke with pt in the room and with team during rounds. Pt to discharge today home with 's care as well as TPN from [facility], [facility] RN/PT/OT and [facility] Palliative team. [facility] RN to meet pt tonight to educate and demonstrate TPN infusion. Pt has port. Updated referrals sent to [facility], [facility] palliative and [facility]. [facility] to communicate with [facility] RN regarding time of TPN delivery. CM requested [facility] pharmacy fax TPN order to [facility] pharmacy, and fax number provided. Pt and family comfortable with plan. Family to provide transport and retrieve any needed prescriptions. No further CM needs noted at this time. Date Signed: 03/01/2018 03:21 PM Electronically Signed By:Parris Troncoso Intervention Information Intervention Type:*IM-Signed Date of Service:03/01/2018 02:21 PM Patient Type:Inpatient Staff Member:Raina Jain Hours: Discipline: Severity: Comment:
--- NOTE | 2018-03-01 16:20 | PDDCSUM ---
Discharge Summary Discharge Summary: Date of Admission: 02/22/2018 Date of Discharge: 03/01/2018 Consults: GI, Critical Care Procedures: EGD Followup: PCP, Oncology Hospital Course Problem List: * Metastatic adenoca of unknown primary - likely GI origin but EGD/colonoscopy negative * UGIB with negative EGD except for jejunal inflammation -SBFT negative -melena resolved -continue PPI -Hgb slightly decreased this AM to 8.5, cleared from GI standpoint, repeat H/ H within next week with PCP/Oncology to ensure stable * Recent acute respiratory failure due to chemo induced interstitial pneumonitis -likely due to oxaliplatin -prednisone with slow taper * Parotiditis -PO augmentin fr total 10 day course * Severe protein calorie malnutrition -home cyclic TPN * Lactic acid elevation due to hypovolemic shock -resolved Time spent on discharge was >35 minutes with >50% of time spent on patient education and counseling.
== END 2018-03-01 15:40 | disposition home or self-care (01) | DRG 377 ==
LOC: EDUNIT# → F2N 05:57 → F1N 02-25 14:34
PROVIDERS: ADMIT Family Medicine; ATTEND Family Medicine
DX: K92.1 Melena (principal); E43 Unspecified severe protein-calorie malnutrition; K52.1 Toxic gastroenteritis and colitis; T45.1X5A Adverse effect of antineoplastic and immunosuppressive drugs, initial encounter; D64.81 Anemia due to antineoplastic chemotherapy; D63.8 Anemia in other chronic diseases classified elsewhere; D62 Acute posthemorrhagic anemia; E87.2 Acidosis; J96.11 Chronic respiratory failure with hypoxia; J18.9 Pneumonia, unspecified organism; I50.30 Unspecified diastolic (congestive) heart failure; K11.20 Sialoadenitis, unspecified; E11.65 Type 2 diabetes mellitus with hyperglycemia; C78.7 Secondary malignant neoplasm of liver and intrahepatic bile duct; C78.00 Secondary malignant neoplasm of unspecified lung; C77.9 Secondary and unspecified malignant neoplasm of lymph node, unspecified; C80.1 Malignant (primary) neoplasm, unspecified; E89.0 Postprocedural hypothyroidism; G47.33 Obstructive sleep apnea (adult) (pediatric); M81.0 Age-related osteoporosis without current pathological fracture; Z85.3 Personal history of malignant neoplasm of breast; Z85.850 Personal history of malignant neoplasm of thyroid; Z79.4 Long term (current) use of insulin
CPT/HCPCS: 96374; 97116-GP; 97161-GP; 97166-GO; 97530-GP; 97535-GO; A9560; G8978-GP-CJ; G8979-GP-CI; G8987-GO-CI; G8988-GO-CI; J0295; J0610; J1642; J1815; J2704; J7512; P9016; Q9967

== ENCOUNTER → 2018-03-08 | Outpatient (CLI) | payer OTHER | LOC: FIMAGING 14:04 | PROVIDERS: ATTEND Family Medicine | DX: R91.8 Other nonspecific abnormal finding of lung field (principal); C80.1 Malignant (primary) neoplasm, unspecified ==

== ENCOUNTER → 2018-03-20 | Outpatient (CLI) | payer OTHER | LOC: FIMAGING 11:27 | PROVIDERS: ATTEND Internal Medicine Hematology & Oncology | DX: E80.7 Disorder of bilirubin metabolism, unspecified (principal); C15.5 Malignant neoplasm of lower third of esophagus; C50.919 Malignant neoplasm of unspecified site of unspecified female breast; K83.1 Obstruction of bile duct ==

== ENCOUNTER → 2018-03-20 | Outpatient (CLI) | payer OTHER | LOC: FIMAGING 11:31 | PROVIDERS: ATTEND Internal Medicine Hematology & Oncology | DX: C15.5 Malignant neoplasm of lower third of esophagus (principal); C50.919 Malignant neoplasm of unspecified site of unspecified female breast ==